=== PATIENT | male | born 1955 | race Caucasian/White ===

== ENCOUNTER 2016-07-28 10:36 | Emergency (ER) | payer OTHER ==
[~2016-07-28] VITALS: Ht 175.3 cm; Wt 81.6 kg
[2016-07-28] MEDS ORDERED: NORC5TAB PO (11:27)
[2016-07-28] MEDS ORDERED: KETOROLAC 30 MG/ML VIAL (J1885) IV ONE (13:30)
[2016-07-28] MEDS ORDERED: ONDANSETRON 4MG/2ML VIAL (J2405) IV ONE (13:30)
[2016-07-28] MEDS ORDERED: MORPHINE 4 MG/ML 1ML SYRINGE IV ONE (13:30)
[2016-07-28] MEDS ORDERED: GASTROGRAFIN SOLUTION 30ML (Q9963) PO ONE ×2 (13:30)
[2016-07-28 14:13] LABS: BASO % 0.3 % (0.0-1.0); EOS # 0.2 K/mm3 (0.0-0.50); EOS % 1.9 % (0.0-3.0); LARGE UNSTAINED CELL # 0.2 K/mm3 (0.0-0.4); LARGE UNSTAINED CELL % 1.2 % (0.0-4.0); LYMPH # 1.9 K/mm3 (1.5-4.5); LYMPH % 12.7 % (24.0-44.0); MEAN CORPUSCULAR HEMOGLOBIN 32.2 pg (27.0-33.0); MEAN CORPUSCULAR HGB CONC 35.4 g/dl (32.0-36.5); MEAN CORPUSCULAR VOLUME 90.7 fl (80.0-96.0); MONO # 0.9 K/mm3 (0.0-0.8); MONO % 6.5 % (0.0-5.0); NEUTROPHILS # 10.4 K/mm3 (1.8-7.7); NEUTROPHILS % 77.4 % (36.0-66.0); PLATELET COUNT, AUTOMATED 243 k/mm3 (150-450); RED CELL DISTRIBUTION WIDTH 12.7 % (11.5-14.5); WHITE BLOOD COUNT 13.5 K/mm3 (4.0-10.0)
[2016-07-28 14:20] LABS: ALBUMIN 4.1 GM/DL (3.2-5.2); ALBUMIN/GLOBULIN RATIO 1.03 (1.00-1.93); ALKALINE PHOSPHATASE 77 U/L (45-117); ALT/SGPT 53 U/L (12-78); AMYLASE 86 U/L (25-115); ANION GAP 7 MEQ/L (8-16); AST/SGOT 39 U/L (15-37); BILIRUBIN,DIRECT 0.2 MG/DL (0.0-0.2); BILIRUBIN,TOTAL 0.8 MG/DL (0.2-1.0); BLOOD UREA NITROGEN 9 MG/DL (7-18); CALCIUM LEVEL 9.3 MG/DL (8.8-10.2); CARBON DIOXIDE LEVEL 28 MEQ/L (21-32); CHLORIDE LEVEL 104 MEQ/L (98-107); CREATININE FOR GFR 1.11 MG/DL (0.70-1.30); GLOMERULAR FILTRATION RATE > 60.0 (>49); GLUCOSE, FASTING 122 MG/DL (80-110); POTASSIUM SERUM 3.8 MEQ/L (3.5-5.1); SODIUM LEVEL 139 MEQ/L (136-145); TOTAL PROTEIN 8.1 GM/DL (6.4-8.2)
[2016-07-28] MEDS ORDERED: ISOVUE-370 76% 100ML VIAL (Q9967) As Ordered ONE (14:39)
[2016-07-28] MEDS ORDERED: HYDROmorphone HCL 1 MG/ML SYRINGE (J1170) IV ONE (14:45)
[2016-07-28] MEDS ORDERED: FLAG500T PO (15:20)
[2016-07-28] MEDS ORDERED: CIPR500T89 PO (15:20)
--- NOTE | 2016-07-28 15:20 | REP ---
CT abdomen and pelvis with IV and oral contrast: History: Diffuse abdominal tenderness. Nausea. No comparison imaging. CT contrast dose: 100 ml of Isovue 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 The lung bases are clear. There is a calcified granuloma in the left lower lobe. There is mild diffuse fatty infiltration of the liver. No focal hepatic or splenic lesion is seen. The gallbladder is unremarkable. No pancreatic abnormality is observed. No adrenal lesion is seen. The kidneys enhance symmetrically and are morphologically intact. No retroperitoneal mass or adenopathy is seen. The patient appears to be status post right colectomy and an anastomosis. No evidence of obstruction. There is left colonic diverticulosis. There is a segment of moderate mural thickening and pericolonic streaking in the left pelvis compatible with acute diverticulitis. No abscess or free air is seen. No abdominal wall defect is observed. Normal appendix is seen in the right lower abdomen. Urinary bladder, prostate and seminal vesicles are unremarkable. No bony destructive lesion is seen. Impression: Findings most compatible with acute diverticulitis in the sigmoid colon without evidence of abscess or free air. Follow-up is advised. Status post partial right hemicolectomy. Vascular calcification noted. Diffuse fatty infiltration of the liver. Signed by Robbi Kelly MD 07/28/2016 07:18 P
[2016-07-28] MEDS ORDERED: OXYC1TAB23 PO (15:22)
[2016-07-28] MEDS ORDERED: ZOFR4TAB3 PO (15:22)
[2016-07-28 15:29] VITALS: BP 155/90
== END 2016-07-28 15:37 | disposition home or self-care (01) ==
LOC: M ED 12:51
DX: K57.32 Diverticulitis of large intestine without perforation or abscess without bleeding (principal); Z85.038 Personal history of other malignant neoplasm of large intestine; Z87.891 Personal history of nicotine dependence
CPT/HCPCS: 36415; 74177; 80048; 80076; 81001; 82150; 83690; 85025; 86140; 96374; 96375; 99283; J1170; J1885; J2405; Q9963; Q9967

== ENCOUNTER 2018-05-13 11:30 | Emergency (ER) | payer OTHER ==
[~2018-05-13] VITALS: Ht 175.3 cm; Wt 81.8 kg
[~2018-05-13 11:30] MED LIST: CIPR-249 PO; FLAG500T PO; NORC1TAB4 PO; OXYC1TAB23 PO; ZOFR4TAB14 PO
[2018-05-13 11:53] LABS: BASO # 0.1 10^3/uL (0.0-0.2); BASO % 0.7 % (0.0-1.0); EOS # 0.4 10^3/uL (0.0-0.50); EOS % 4.6 % (0.0-3.0); HEMATOCRIT 44.2 % (42.0-52.0); HEMOGLOBIN 14.9 g/dl (13.5-17.5); LYMPH % 24.6 % (24.0-44.0); MEAN CORPUSCULAR HEMOGLOBIN 30.7 pg (27.0-33.0); MEAN CORPUSCULAR HGB CONC 33.7 g/dl (32.0-36.5); MEAN CORPUSCULAR VOLUME 90.9 fl (80.0-96.0); MONO # 0.5 10^3/uL (0.0-0.8); MONO % 6.2 % (0.0-5.0); NEUTROPHILS # 5.3 10^3/uL (1.8-7.7); NEUTROPHILS % 63.7 % (36.0-66.0); PLATELET COUNT, AUTOMATED 305 10^3/uL (150-450); RED BLOOD COUNT 4.86 10^6/uL (4.30-6.10); WHITE BLOOD COUNT 8.3 10^3/uL (4.0-10.0)
[2018-05-13] MEDS: MORPHINE 4 MG/ML 1ML VIAL/SYRINGE (J2270) IV PRN ×2 (12:27→12:49)
[2018-05-13] MEDS ORDERED: ONDANSETRON 4MG/2ML VIAL (J2405) IV ONE (12:30)
[2018-05-13] MEDS ORDERED: NS 1,000 ML IV ONE (12:30)
[2018-05-13] MEDS ORDERED: GASTROGRAFIN SOLUTION 30ML (Q9963) As Ordered ONE (12:47)
[2018-05-13] MEDS: GASTROGRAFIN SOLUTION 30ML PO SCH ×2 (12:50→13:20)
[2018-05-13] MEDS ORDERED: MORPHINE 4 MG/ML 1ML VIAL/SYRINGE (J2270) IV PRN (13:30)
[2018-05-13] MEDS ORDERED: ISOVUE-370 76% 100ML VIAL (Q9967) As Ordered ONE (14:01)
[2018-05-13 14:10] LABS: AMYLASE 105 U/L (25-115); BILIRUBIN,TOTAL 0.5 MG/DL (0.2-1.0); BLOOD UREA NITROGEN 15 MG/DL (7-18); CALCIUM LEVEL 8.8 MG/DL (8.8-10.2); CARBON DIOXIDE LEVEL 25 MEQ/L (21-32); CHLORIDE LEVEL 109 MEQ/L (98-107); GLUCOSE, FASTING 105 MG/DL (70-100); LIPASE 138 U/L (73-393); POTASSIUM SERUM 4.4 MEQ/L (3.5-5.1); SODIUM LEVEL 140 MEQ/L (136-145); TOTAL PROTEIN 7.7 GM/DL (6.4-8.2)
[2018-05-13 14:24] LABS: CREATININE FOR GFR 1.09 MG/DL (0.70-1.30); GLOMERULAR FILTRATION RATE > 60.0 (>49)
[2018-05-13 14:25] LABS: ALT/SGPT 34 U/L (12-78)
[2018-05-13 14:41] LABS: BILIRUBIN,DIRECT 0.1 MG/DL (0.0-0.2)
--- NOTE | 2018-05-13 15:23 | REP ---
CT ABDOMEN AND PELVIS WITH IV AND ORAL CONTRAST: HISTORY: Left-sided abdomen pain. Rule out diverticulitis. COMPARISON CT STUDY: July 28, 2016 CT CONTRAST DOSE: 100 mL of intravenous Isovue 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 There is bibasilar linear fibrosis in the lung bases. No pleural effusion is seen. No focal hepatic or splenic lesion is observed. There is a tiny accessory splenule. No adrenal lesion is seen on either side. No pancreatic lesion is observed. The gallbladder is unremarkable. No retroperitoneal mass or adenopathy is seen. There is no evidence of hydronephrosis or other renal abnormality. There is diverticulosis of the sigmoid colon. There is no CT evidence of diverticulitis. Urinary bladder boone are diffusely somewhat thickened. There is an anastomosis in the ascending colon consistent with partial right colectomy, unchanged. No obstructive lesion is seen. Study is otherwise unremarkable. IMPRESSION: Left colonic diverticulosis without CT evidence of diverticulitis. Status post partial right colectomy. Diffuse the urinary bladder wall thickening. Otherwise negative CT abdomen and pelvis. Electronically Signed by Robbi Kelly MD 05/13/2018 06:19 P
[2018-05-13] MEDS ORDERED: ZOFR4TAB14 PO (15:34)
[2018-05-13] MEDS ORDERED: PERC5TAB12 PO (15:34)
[2018-05-13 16:03] VITALS: BP 190/98
--- NOTE | 2018-05-15 08:26 | ED PDOC ---
Post-Departure Follow-Up radiology report faxed to Elizabeth Macias MD May 15, 2018 08:26
== END 2018-05-13 16:06 | disposition home or self-care (01) ==
LOC: M ED 11:30
DX: R10.12 Left upper quadrant pain (principal); R10.32 Left lower quadrant pain; Z87.19 Personal history of other diseases of the digestive system; Z90.49 Acquired absence of other specified parts of digestive tract
CPT/HCPCS: 74177; 80048; 80076; 81001; 82150; 83690; 85025; 96374; 96375; 96376; 99284; J2270; J2405; Q9967

== ENCOUNTER → 2018-05-19 | Outpatient (CLI) | payer OTHER ==
[~2018-05-19] MED LIST changes: +PERC5TAB12 PO
--- NOTE | 2018-05-20 00:41 | REP ---
Clinical: Lower back pain. Technique: AP, lateral, bilateral oblique, and coned-down views of the lumbosacral spine. Findings: AP view demonstrates mild dextroconvex scoliosis of approximately 11 degrees. No acute fracture / compression injury or subluxation. No evidence for spondylolysis or spondylolisthesis. Mild multilevel degenerative changes include marginal spurring as well as hypertrophic facet changes and minimal disc space narrowing. Impression: Mild multilevel degenerative changes. Electronically Signed by Shaquille Guillaume MD 05/20/2018 12:33 A
== END ==
LOC: M RAD 09:27
PROVIDERS: ATTEND Physician Assistant Medical
DX: M51.37 Other intervertebral disc degeneration, lumbosacral region (principal); M54.5 Low back pain

== ENCOUNTER 2019-03-09 07:05 | Day surgery (SDC) | payer OTHER ==
[~2019-03-09] VITALS: Ht 170.2 cm; Wt 81.6 kg
[~2019-03-09 07:05] MED LIST changes: +ASPI81TA85 PO; +COQ1100C5 PO; +CYCL10TA PO; +L-LY500T14 PO; +LISI40TA PO; +MELO15TA28 PO; +MULTCAP PO; -NORC1TAB4 PO; +NORC1TAB7 PO; +NS 1,000 ML IV ONE; +ROSU40TA4 PO; +SM S160C PO; +VITATAB73 PO
--- NOTE | 2019-03-09 08:22 | ROOR ---
Patient Name: Saleem Mckeon Procedure Date: 03/09/2019 8:08 AM Date of : 1955 Age: 63 Room: [facility] Gender: Male Note Status: Finalized Procedure: Upper Endoscopy + Biopsies Indications: Iron deficiency anemia Providers: Clay Martinez MD Referring MD: ELDER LANDA Requesting Provider: Medicines: Monitored Anesthesia Care Complications: No immediate complications. Procedure: Pre-Anesthesia Assessment: - The heart rate, respiratory rate, oxygen saturations, blood pressure, adequacy of pulmonary ventilation, and response to care were monitored throughout the procedure. The Endoscope was introduced through the mouth, and advanced to the second part of duodenum. The upper GI endoscopy was accomplished without difficulty. The patient tolerated the procedure well. Findings: The Z-line was variable and was found 40 cm from the incisors. Multiple biopsies were obtained with cold forceps for evaluation to rule out Romero's Esophagus randomly at the gastroesophageal junction. A small hiatal hernia was present. Localized mild inflammation characterized by congestion (edema) and erosions was found in the gastric antrum. Biopsies were taken with a cold forceps for Helicobacter pylori testing. The exam of the duodenum was otherwise normal. Biopsies for histology were taken with a cold forceps in the first portion of the duodenum for evaluation of celiac disease. The exam was otherwise without abnormality. Impression: - Z-line variable, 40 cm from the incisors. - Small hiatal hernia. - Mucosal changes suspicious for gastritis. Biopsied. - The examination was otherwise normal. - Multiple biopsies were obtained at the gastroesophageal junction. - Biopsies were taken with a cold forceps for evaluation of celiac disease. - The examination was otherwise normal. Recommendation: - Patient has a contact number available for emergencies. The signs and symptoms of potential delayed complications were discussed with the patient. Return to normal activities tomorrow. Written discharge instructions were provided to the patient. - High fiber diet. - Discharge patient to home. - Follow an antireflux regimen. - Continue present medications. - Await pathology results. - Telephone GI clinic for pathology results in 1 week. - Return to referring physician. - The findings and recommendations were discussed with the patient's family. Clay Martinez MD Clay Martinez MD 03/09/2019 8:22:30 AM Electronically signed by Clay Martinez MD Number of Addenda: 0 Note Initiated On: 03/09/2019 8:08 AM Estimated Blood Loss: Estimated blood loss: none.
--- NOTE | 2019-03-09 08:36 | ROOR ---
Patient Name: Saleem Mckeon Procedure Date: 03/09/2019 8:09 AM Date of : 1955 Age: 63 Room: [facility] Gender: Male Note Status: Finalized Procedure: Total Colonoscopy to Cecum Indications: High risk colon cancer surveillance: Personal history of colonic polyps, Last colonoscopy: 2016, Incidental - Unexplained iron deficiency anemia Providers: Clay Martinez MD Referring MD: ELDER LANDA Requesting Provider: Medicines: Monitored Anesthesia Care Complications: No immediate complications. Procedure: Pre-Anesthesia Assessment: - The heart rate, respiratory rate, oxygen saturations, blood pressure, adequacy of pulmonary ventilation, and response to care were monitored throughout the procedure. The Colonoscope was introduced through the anus and advanced to the cecum, identified by appendiceal orifice and ileocecal valve. The colonoscopy was performed without difficulty. The patient tolerated the procedure well. The quality of the bowel preparation was excellent. Findings: The perianal and digital rectal examinations were normal. Non-bleeding internal hemorrhoids were found during retroflexion. The hemorrhoids were small and Grade I (internal hemorrhoids that do not prolapse). Multiple small and large-mouthed diverticula were found in the recto-sigmoid colon, sigmoid colon and descending colon. The exam was otherwise without abnormality on direct and retroflexion views. Impression: - Non-bleeding internal hemorrhoids. - Diverticulosis in the recto-sigmoid colon, in the sigmoid colon and in the descending colon. - The examination was otherwise normal on direct and retroflexion views. - No specimens collected. - The exam was otherwise normal to the cecum. Recommendation: - Patient has a contact number available for emergencies. The signs and symptoms of potential delayed complications were discussed with the patient. Return to normal activities tomorrow. Written discharge instructions were provided to the patient. - High fiber diet. - Discharge patient to home. - Continue present medications. - Return to referring physician. - Repeat colonoscopy in 5 years for surveillance. - Return to referring physician. - The findings and recommendations were discussed with the patient's family. Clay Martinez MD Clay Martinez MD 03/09/2019 8:36:25 AM Electronically signed by Clay Martinez MD Number of Addenda: 0 Note Initiated On: 03/09/2019 8:09 AM Estimated Blood Loss: Estimated blood loss: none.
[2019-03-09] MEDS ORDERED: LIDOCAINE 2% INJ 100 MG/5 ML SDV (FOR ANES.) As Ordered ONE (08:46)
[2019-03-09] MEDS ORDERED: fentaNYL 100 MCG/2 ML INJECTION (J3010) As Ordered ONE (08:46)
[2019-03-09] MEDS ORDERED: PROPOFOL 500 MG/50 ML VIAL As Ordered ONE (08:46)
[2019-03-09 09:00] VITALS: BP 130/90
== END 2019-03-09 09:20 | disposition home or self-care (01) ==
LOC: M OPP 07:05
PROVIDERS: ATTEND Internal Medicine Gastroenterology
DX: Z12.11 Encounter for screening for malignant neoplasm of colon (principal); Z86.010 Personal history of colon polyps; K64.0 First degree hemorrhoids; K57.30 Diverticulosis of large intestine without perforation or abscess without bleeding; K22.8 Other specified diseases of esophagus; K44.9 Diaphragmatic hernia without obstruction or gangrene; K31.89 Other diseases of stomach and duodenum; D50.9 Iron deficiency anemia, unspecified; Z79.82 Long term (current) use of aspirin; Z79.899 Other long term (current) drug therapy; F17.220 Nicotine dependence, chewing tobacco, uncomplicated
CPT/HCPCS: 43239; 45378; 88305; J3010

== ENCOUNTER → 2019-06-21 | Outpatient (CLI) | payer OTHER ==
[~2019-06-21] MED LIST changes: -NS 1,000 ML IV ONE
--- NOTE | 2019-06-23 02:04 | ECWPNPC ---
PATIENT NAME: DELILAH CONWAY : 1955 GENDER: MALE VISIT DATE: 06/21/2019 DISCHARGE DATE: 06/21/19 1502 VISIT LOCKED DATE TIME: PHYSICIAN: JANN PEÑA RESOURCE: JANN PEÑA REASON FOR APPOINTMENT 1. BILATERAL FOOT PX HISTORY OF PRESENT ILLNESS NEW PATIENT CONSULT: WHEN DID YOUR PAIN FIRST START? . BRIEFLY DESCRIBE HOW YOUR PAIN STARTED? . HOW DOES YOUR PAIN CHANGE WITH TIME? . DOES YOUR PAIN AWAKEN YOU FROM SLEEP? . HOW MANY HOURS OF SLEEP DO YOU NORMALLY GET? . ANY DIAGNOSTIC TESTING? . FACILITY WHERE TESTS WERE DONE? ____. PAIN TREATMENT TREATMENT YES CANCER HAVE YOU EVER HAD ANY TYPE OF CANCER?NO NO. 64 YEAR OLD MALE IN FOR INITIAL PAIN CONSULT. HE RATES HIS PAIN AT A 10/10 CURRENTLY AND DESCRIBES IT ACHING, SHARP, AND BURNING. 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 HE HAS TRIED OXYCODONE AND GABAPENTIN IN THE PAST TO HELP ALLEVIATE HIS PAIN SYMPTOMS AND HE ADMITS THAT IT WAS HELPFUL. PAIN SCREENING: PATIENT HAS A COMPLAINT OF ACUTE OR CHRONIC PAIN :YES FALL RISK SCREENING: SCREENING : NO FALLS IN THE PAST YEAR. LOCKETT INVENTORY: QUESTIONNAIRE ASSESSEDTBD SCORE VALUE CALCULATED TBD CURRENT MEDICATIONS TAKING CYCLOBENZAPRINE HCL 10 MG TABLET ORALLY TID TAKING MELOXICAM 15 MG TABLET ORALLY DAILY TAKING LISINOPRIL 20 MG TABLET ORALLY DAILY TAKING ROSUVASTATIN CALCIUM 20 MG TABLET ORALLY DAILY TAKING ASPIR-81 NOT-TAKING FLEXERIL MEDICATION LIST REVIEWED AND RECONCILED WITH THE PATIENT PAST MEDICAL HISTORY HYPERTENSION COLON CANCER HIGH CHOLESTEROL ARTHRITIS DIVERTICULITIS SORTIC ANEURYSEM ANEMIA ALLERGIES N.K.D.A. SURGICAL HISTORY COLON SURGERY 2016 HERNIA SURGERY WHEN TEENAGER EYE SURGERY A CHILD FAMILY HISTORY FATHER: MOTHER: , DIAGNOSED WITH HYPERTENSION SIBLINGS: MOTHER OF LUNG CANCERBROTHER OF BONE/BRAIN CANCERSISTER MURDRED. SOCIAL HISTORY GENERAL: TOBACCO USE ARE YOU A:NONSMOKER ADDITIONAL FINDINGS: TOBACCO USERCHEWS FINE CUT TOBACCO SMOKING CESSATION INFORMATION GIVEN06/21/2019 OTHERS AT HOME: GRANDCHILD AND SON AND SIGNIFICANT OTHER 4 DOGS AND 3 CATS. HOUSING: RENTS APARTMENT. EDUCATION LEVEL OF EDUCATION:NOT FINISHED COLLEGE DIET: REGULAR. LANGUAGE LANGUAGES SPOKEN:BULGARIAN DOMESTIC VIOLENCE DO YOU FEEL SAFE IN YOUR ENVIRONMENT?YES RECREATIONAL DRUG USE DRUG USE?NO PT DECLINES ANY PAST OR PRESENT HISTORY EXERCISE: WALKS. PATIENT: ____. PAIN CLINIC PFS, CLERGY, PUBLIC HEALTH REFERRALS WAS THE PROVIDER NOTIFIED OF ANY PERTINENT INFO?NO PUBLIC HEALTH REFERRAL NEEDED?NO CLERGY REFERRAL NEEDED?NO PFS REFERRAL NEEDED?NO CAFFEINE CAFFEINE USE?YES ONE CUP IN THE MORNING, 1 CUP DAILY ADVANCE DIRECTIVE ADVANCE DIRECTIVE DISCUSSED WITH PATIENT:YES GIVEN PRINTED MATERIAL FOR HCP JEWISH JEWISH ORIENTAL ORTHODOX IS HOW PT WAS RAISED , BUT STATES NO PREFERENCE MARITAL STATUS: SINGLE. ALCOHOL SCREENING DID YOU HAVE A DRINK CONTAINING ALCOHOL IN THE PAST YEAR?NO POINTS0 INTERPRETATIONNEGATIVE OCCUPATION: RETIRED. HOSPITALIZATION/MAJOR DIAGNOSTIC PROCEDURE SURGERIES AND DIVERTICULITIS REVIEW OF SYSTEMS REVIEWED BY: PROVIDER: RENETTA VOGEL-Isadora . CONSTITUTIONAL: ANY CHANGE IN YOUR MEDICAL CONDITION? NO . CHILLS NO . FEVER NO . INFECTION: DO YOU HAVE NEW INFECTIONS? NO . DO YOU HAVE HISTORY OF MRSA? NO . MUSCULOSKELETAL: ANY NEW PATTERNS OF PAIN OR NUMBNESS? PAIN IN BOTH FEET . SYTEMIC LUPUS NO . GASTROENTEROLOGY: ANY NEW CHANGE IN BOWEL CONTROL? NO . BARRETTS ESOPHAGUS NO . CIRRHOSIS NO . HEPATITIS NO . LIVER FAILURE NO . ACID REFLUX NO . UNEXPLAINED WEIGHT LOSS NO . GENITOURINARY: ANY NEW CHANGE IN BLADDER CONTROL? NO . IS THERE A CHANCE YOU COULD BE ? NO . HEMATOLOGY/LYMPH: DO YOU TAKE ANY BLOOD THINNERS? (FOR EXAMPLE- COUMADIN, PLAVIX, AGGRENOX, PLATEL, PRADAXA, OR XARELTO) NO . WHEN WAS YOUR LAST DOSE? DATE: TIME: . LOW PLATELET COUNT NO . SICKLE CELL DISEASE NO . VON WILLIEBRANDS NO . FACTOR V LEIDEN NO . THALLASEMIA NO . ANEMIA NO . EASY BRUISING NO . NEUROLOGY: HAVE YOU FALLEN IN THE PAST 12 MONTHS? NO . ANY NEW EXTREMITY NUMBNESS OR WEAKNESS? NO . HEAD INJURY NO . DEMENTIA NO . CEREBRAL PALSY NO . MULTIPLE SCLEROSIS NO . DIZZINESS NO . HEADACHE NO . STROKES NO . VERTIGO NO . CARDIOLOGY: DO YOU HAVE A PACEMAKER OR DEFIBRILLATOR? NO . ANGINA NO . HEART ATTACK NO . HEART SURGERY NO . CONGESTIVE HEART FAILURE/FLUID OVERLOAD NO . CHEST PAIN NO . HIGH BLOOD PRESSURE NO . IRREGULAR HEART BEAT NO . RESPIRATORY: HAVE YOU BEEN SICK IN THE PAST WEEK? NO . FEVER NO . FLU LIKE SYMPTOMS? NO . CPAP NO . BYPAP NO . ASTHMA NO . EMPHYSEMA NO . CHRONIC LUNG DISEASES NO . SHORTNESS OF BREATH ON EXERTION NO . DO YOU USE ANY TYPE OF TOBACCO (SMOKE, SMOKELESS, CHEW)? NO . COUGH NO . SNORING NO . INTEGUMENTARY: DO YOU HAVE ANY RASHES OR OPEN SORES? NO . ALLERGIC/IMMUNO: ARE YOU ALLERGIC TO IV DYE? NO . ANY NEW ALLERGIES? NO . PSYCHIATRIC: DO YOU HAVE THOUGHTS OF HURTING YOURSELF OR SOMEONE ELSE? NO . ARE YOU ABUSED, NEGLECTED, OR IN AN UNSAFE ENVIRONMENT? NO . ENDOCRINOLOGY: ARE YOU DIABETIC? NO . THYROID DISORDER NO . OTHER: DO YOU NEED ANY PRESCRIPTIONS? NO . IF YES, PLEASE LIST: ____ . ANY NEW PROBLEMS WITH YOUR MEDICATIONS? NO . WHEN DID YOU LAST EAT? ____ . WHEN DID YOU LAST DRINK? ____ . WHAT DID YOU LAST DRINK? ____ . NAME OF PERSON DRIVING YOU HOME? ____ . DO YOU HAVE ANY OTHER QUESTIONS OR CONCERNS NO . VITAL SIGNS WT 187.6 LBS, HT 57 IN, BMI 40.59 INDEX, BP 134/67 MM HG, HR 78 /MIN, RR 18 /MIN, TEMP 97.2 F, OXYGEN SAT % 99%, NA INITIALS AW 1348, REVIEWED BY: KG. EXAMINATION GENERAL EXAMINATION: GENERALNO ACUTE DISTRESS, WELL NOURISHED AND HYDRATED. PSYCHAPPROPRIATE MOOD AND AFFECT . LUNGS:CLEAR TO AUSCULTATION BILATERALLY, NO WHEEZES, RHONCHI, RALES. HEART:NO MURMURS, REGULAR RATE AND RHYTHM. MUSCULOSKELETAL:POSITIVE PEDAL PULSES BILATERALLY , PATIENT ENDORSES TENDERNESS PLANTAR ASPECT BILATERALLY, SURROUNDING SKIN SHOWS NO ERYTHEMA, ECCHYMOSIS, INCREASED WARMTH, AND/OR SKIN ERUPTIONS NOTED. . ASSESSMENTS PAIN IN RIGHT FOOT - M79.671 (PRIMARY) PAIN IN LEFT FOOT - M79.672 TREATMENT PAIN IN RIGHT FOOT START OXYCODONE-ACETAMINOPHEN TABLET, 5-325 MG, 1 TABLET NEEDED, ORALLY, BID, 30 DAYS, 60 TABLET START LYRICA CAPSULE, 100 MG, 1 CAPSULE, ORALLY, ONCE A DAY X 1 WEEK THEN EVERY OTHER DAY, 14 DAYS, 10 START GABAPENTIN CAPSULE, 100 MG, 1 CAPSULE, ORALLY, THREE TIMES DAILY X 3 DAYS, 3 DAYS, 9 START GABAPENTIN CAPSULE, 300 MG, 1 CAPSULE, ORALLY, THREE TIMES DAILY START DAY 4, 30 DAY(S), 90 CLINICAL NOTES: 64-YEAR-OLD MALE IN FOR INITIAL PAIN CONSULT. GIVEN PRESENTING SYMPTOMS AND RESULTS OF PHYSICAL EXAMINATION RECOMMENDED OXYCODONE 5 MG TWICE A DAY FURTHER RECOMMEND TITRATING OFF LYRICA AND STARTING GABAPENTIN 100 MG 3 TIMES A DAY X3 DAYS THEN INCREASING TO 300 MG 3 TIMES A DAY THEREAFTER., ISTOP REGISTRY REVIEWED AND DEMONSTRATES COMPLLIANCE. (REF # [id number] ) BRINGS IN MEDICATIONS WHICH IS APPROPRIATE FOR WHAT WAS DISPENSED. RECENT URINE TOXICOLOGY REVIEWED. NO UNAUTHORIZED MEDICATIONS. NO ILLICIT SUBSTANCES AND PRESCRIBED MEDICATIONS WERE PRESENT. DISPOSITION & COMMUNICATION FOLLOW UP 4 WEEKS (REASON: FOOT PAIN ) ELECTRONICALLY SIGNED BY JASPREET RIVERA ON 06/22/2019 AT 03:16 PM EST DISCLAIMER : THIS IS A VISIT SUMMARY EXTRACTED FROM THE [employer] CHART. IT IS NOT A COPY OF THE [employer] PROGRESS NOTE. MIGUE
== END ==
LOC: M PAIN 13:30
PROVIDERS: ATTEND Family Medicine
DX: M79.671 Pain in right foot (principal); M79.672 Pain in left foot; I10 Essential (primary) hypertension; F17.220 Nicotine dependence, chewing tobacco, uncomplicated; E66.01 Morbid (severe) obesity due to excess calories; Z68.41 Body mass index [BMI] 40.0-44.9, adult; Z79.82 Long term (current) use of aspirin; Z79.899 Other long term (current) drug therapy

== ENCOUNTER 2019-06-27 15:43 | Inpatient (IN) | payer OTHER ==
[~2019-06-27] VITALS: Ht 170.2 cm; Wt 88.3 kg
[2019-06-27 16:48] LABS: HEMATOCRIT 40.8 % (42.0-52.0); HEMOGLOBIN 13.7 g/dl (13.5-17.5); MEAN CORPUSCULAR HEMOGLOBIN 30.2 pg (27.0-33.0); MEAN CORPUSCULAR HGB CONC 33.6 g/dl (32.0-36.5); MEAN CORPUSCULAR VOLUME 89.9 fl (80.0-96.0); PLATELET COUNT, AUTOMATED 235 10^3/uL (150-450); RED BLOOD COUNT 4.54 10^6/uL (4.30-6.10); WHITE BLOOD COUNT 11.3 10^3/uL (4.0-10.0)
[2019-06-27 17:14] LABS: CALCIUM LEVEL 9.7 MG/DL (8.8-10.2); CREATININE FOR GFR 1.35 MG/DL (0.70-1.30); GLOMERULAR FILTRATION RATE 56.6 (>49); POTASSIUM SERUM 3.9 MEQ/L (3.5-5.1)
[2019-06-27] MEDS ORDERED: ONDANSETRON 4MG/2ML VIAL (J2405) IV ONE (17:45)
--- NOTE | 2019-06-27 17:47 | REPVR ---
PROCEDURE INFORMATION: Exam: CT Head Without Contrast Exam date and time: 06/27/2019 5:21 PM Age: 64 years old Clinical indication: Condition or disease; Convulsions or seizures; Additional info: New seizure TECHNIQUE: Imaging protocol: Computed tomography of the head without contrast. Radiation optimization: All CT scans at this facility use at least one of these dose optimization techniques: automated exposure control; mA and/or kV adjustment per patient size (includes targeted exams where dose is matched to clinical indication); or iterative reconstruction. COMPARISON: CT Head without contrast 06/06/2013 8:50 AM FINDINGS: Brain: No hemorrhage. Unremarkable white matter for the patient's age. No mass effect. No evolving territorial infarct. Mild cerebral convexity as well as cerebellar vermian volume loss. Ventricles: No ventriculomegaly. Bones/joints: Unremarkable. No acute fracture. Sinuses: Visualized sinuses are unremarkable. No fluid could levels. Mastoid air cells: Visualized mastoid air cells are well aerated. Soft tissues: Unremarkable. IMPRESSION: No acute intracranial abnormality seen. Electronically signed by: Meredith Solares On 06/27/2019 17:47:42 PM
[2019-06-27] MEDS: MORPHINE 2 MG/ML 1ML VIAL (J2270) IV PRN (17:49)
--- NOTE | 2019-06-27 17:53 | REPVR ---
PROCEDURE INFORMATION: Exam: CT Cervical Spine Without Contrast Exam date and time: 06/27/2019 5:21 PM Age: 64 years old Clinical indication: Injury or trauma; Injury history: Seizure; Initial encounter; Blunt trauma TECHNIQUE: Imaging protocol: Computed tomography images of the cervical spine without contrast. Radiation optimization: All CT scans at this facility use at least one of these dose optimization techniques: automated exposure control; mA and/or kV adjustment per patient size (includes targeted exams where dose is matched to clinical indication); or iterative reconstruction. COMPARISON: No relevant prior studies available. FINDINGS: Vertebrae: Anatomic alignment. No acute fracture seen. Discs/Spinal canal/Neural foramina: Moderate degenerative changes at C1-C2. Moderate multilevel cervical facet arthropathy. Moderate diffuse disc height loss and spondylosis with uncovertebral arthropathy and vacuum change of the disc spaces at C5-C6 and C6-C7. Other bones/joints: Prior surgical fixation of the right mandible. Soft tissues: Unremarkable. Lungs: Lung apices are normal. Vasculature: Mild calcified plaque at the carotid bifurcations. IMPRESSION: 1. Images are motion degraded, in particular from the C1 through C4 levels, most notably at the C1 and C2 levels. 2. No cervical spine fracture seen. Electronically signed by: Merdeith Solares On 06/27/2019 17:53:02 PM
[2019-06-27 17:58] LABS: CK-MB VALUE MASS 1.9 NG/ML (<3.6); MAGNESIUM LEVEL 2.2 MG/DL (1.8-2.4); MB/CK RELATIVE INDEX 0.32 (< OR =4)
[2019-06-27] MEDS ORDERED: levETIRAcetam INJection 1,000 MG in D5W 100 ML IV ONE (18:00)
[2019-06-27] MEDS ORDERED: MORPHINE 4 MG/ML 1ML VIAL/SYRINGE (J2270) IV ONE ×2 (18:00→19:15)
--- NOTE | 2019-06-27 19:19 | REPVR ---
PROCEDURE INFORMATION: Exam: CT Thoracic Spine Without Contrast Exam date and time: 06/27/2019 6:42 PM Age: 64 years old Clinical indication: Pain in thoracic spine; Additional info: Fall TECHNIQUE: Imaging protocol: Computed tomography images of the thoracic spine without contrast. Radiation optimization: All CT scans at this facility use at least one of these dose optimization techniques: automated exposure control; mA and/or kV adjustment per patient size (includes targeted exams where dose is matched to clinical indication); or iterative reconstruction. COMPARISON: No relevant prior studies available. FINDINGS: Vertebrae: Mild exaggeration of the thoracic kyphosis. Mild levoconvex scoliosis. No acute fracture seen. Mild multilevel thoracic degenerative disc disease with small endplate Schmorl's nodes. No severe stenoses identified. Discs/Spinal canal/Neural foramina: See Vertebrae Finding. Soft tissues: Unremarkable. Vasculature: The aorta demonstrates atherosclerosis. Lungs: The left lung demonstrates dependent atelectasis. Likely dependent right lower lobe atelectasis, component of consolidation is difficult to exclude, for example image 46 of series 202. Stomach and bowel: There is suture along the right colon in keeping with prior partial colectomy or potentially gastroenteric anastomosis. IMPRESSION: 1. No thoracic spine fracture seen. 2. Right lower lobe atelectasis versus consolidation. Electronically signed by: Meredith Solares On 06/27/2019 19:19:35 PM
--- NOTE | 2019-06-27 20:03 | ECGEPIP ---
[facility] - ED Test Date: 2019-06-27 Pat Name: DELILAH CONWAY Department: Room: - Gender: Male Activities Attendant: lubakasi : 1955 Requested By: Darrion Yi Order Number: [id number] Reading MD: Darrion Yi Measurements Intervals [place] Rate: 104 P: 71 FL: 196 QRS: -71 QRSD: 81 T: 66 QT: 323 QTc: 426 Interpretive Statements SINUS TACHYCARDIA PATTERN CONSISTENT WITH PULMONARY DISEASE LEFT ANTERIOR FASCICULAR BLOCK Left axis deviation NONSPECIFIC ST T WAVE CHANGES POOR R WAVE PROGRESSION Electronically Signed on 06-27-2019 20:03:24 EST by Darrion Yi
[2019-06-27] MEDS ORDERED: NS IV ONE (21:45)
[2019-06-27] MEDS ORDERED: KETAMINE HCL IV ONE (21:45)
[2019-06-27] MEDS ORDERED: MAALOX 30 ML SUSP *UDC PO PRN (22:15)
[2019-06-27] MEDS ORDERED: LORazepam 2 MG/ML VIAL (J2060) IV PRN (22:15)
[2019-06-27] MEDS ORDERED: ACETAMINOPHEN TAB 650MG DOSE (2X325MG) PO PRN (22:15)
[2019-06-27] MEDS ORDERED: MOM 30ML SUSPENSION UDC PO PRN (22:15)
--- NOTE | 2019-06-27 22:19 | HPEPDOC ---
[facility] Medical History & Physical Date of Admission Jun 27, 2019 Date of Service: Jun 27, 2019 Other Provider Essence Perry Attending Physician: ALFRED MISHRA MD History and Physical TIME OF SERVICE: 9:51 PM CHIEF COMPLAINT: Seizure HISTORY OF PRESENT ILLNESS: This is a 64-year-old male who presents for evaluation after having a seizure that was witnessed by his . Prior to the seizure. The patient felt funny and thought that he did fall onto his knees and got up, but his reported that this did not happen, instead, the patient fell down completely flat onto his f jeny had a seizure- and bit his tongue. He is never had seizures before. After the event the patient was confused. According to his he has been sleeping more than usual, has had a runny nose, and a sore throat; he had not eaten all day prior to the seizure and had been driving around town running errands. According to his when EMS checked his serum glucose it was 81. REVIEW OF SYSTEMS: 12 point review of systems negative except as listed in HPI PAST MEDICAL/ SURGICAL HISTORY: He denies having a prior history of seizures. Chronic HTN Chronic neck pain, Dyslipidemia. AAA Status post partial colectomy for resection of a precancerous colon lesion SOCIAL HISTORY: He chews tobacco. He doesn't drink alcohol. He lives with his FAMILY HISTORY: Pepcid cancer. He denies a family history of seizure disorder ALLERGIES: Please see below. HOME MEDICATIONS: Please see below. PHYSICAL EXAMINATION: VITAL SIGNS: Please see below. GEN: well-nourished / well developed/ NAD INTEGUMENT: not flushed/ not jaundice / slightly diaphoretic HEENT: mucus membranes dry CVS: RRR/NMRG/ radial pedis pulses intact / no lower extremity edema LUNGS: able to speak full sentences without stopping to take a breath / lungs are clear to auscultation bilaterally on room air ABDOMEN: Contour (flat) MSK/EXTREMITIES: range of motion intact in all 4 extremities / he has limited lateral range of motion in his neck because of pain NEURO: CN 2-12 are grossly intact except for mild horizontal nystagmus, more prominent at the right / speech is not dysarthric / strength is 5/5 PSYCH: alert and oriented to person place and time/ able to understand and follow all commands LABORATORY DATA: See below. IMAGING: CT head " IMPRESSION: No acute intracranial abnormality seen. " CT neck " IMPRESSION: 1. Images are motion degraded, in particular from the C1 through C4 levels, most notably at the C1 and C2 levels. 2. No cervical spine fracture seen. " CT thoracic spine " IMPRESSION: 1. No thoracic spine fracture seen. 2. Right lower lobe atelectasis versus consolidation. " MICROBIOLOGY: Please see below. ASSESSMENT: Mr. Mckeon is a 64-year-old male with a history of HTN, chronic neck pain, dyslipidemia & AAA who is admitted for evaluation of new onset seizure. PLAN: 1. New onset seizure The cause is unclear at this time His head CT, calcium and serum glucose are unremarkable. The mildly elevated CPKs likely due to the seizure He received Keppra in the ER Plan: Admit to PCU/fall precautions/ seizure precautions/ frequent neuro checks / neuro consult / f/u prolactin, trop, Urine drug screen (he received morphine in the ER), trend CK / f/u EEG / MRI brain w contrast to r/o mass / Keppra 500mg BID / I instructed the patient not to drive until he receives clearance from neurology 2. Pneumonia CAP vs Aspiration Pneumonitis due to aspiration during seizure CT report showed right sided consolidation He had a runny nose and sore throat but no fever or other symptoms consistent with PNA He was transiently hypoxic as low as 88% and had a respiratory rate as high as 22 in the ER Plan: Unasyn for probable aspiration pneumonitis/pneumonia / will not order sputum & blood cx ect bc he doesn't have an elevated BUN, tachypnea or low BP/ IVF / f/u strep throat cx / he will need influenza vaccine prior to discharge if he hasn't received it 3. SIRS. Likely reactive due to seizure. He does not look septic or toxic. Plan: Treat seizure/monitor vitals/treat pneumonia / IVF for tachycardia 4. Chronic HTN - Plan: Lisinopril 5. Chronic neck pain - Plan: Meloxicam and cyclobenzaprine DVT PROPHYLAXIS: Lovenox DISPOSITION: Home after more than two midnight's stay Vital Signs Vital Signs Date Time Temp Pulse Resp B/P (MAP) Pulse Ox O2 Delivery O2 Flow Rate FiO2 06/27/19 21:51 94 94 06/27/19 21:50 121/80 (94) 06/27/19 19:19 22 06/27/19 18:30 Room Air 06/27/19 15:46 97.8 Laboratory Data Labs 24H Laboratory Tests 2 06/27/19 16:31: Nucleated Red Blood Cells % (auto) 0.0, Anion Gap 11, Glomerular Filtration Rate 56.6, Calcium Level 9.7, Magnesium Level 2.2, Total Creatine Kinase 599H, Creatine Kinase MB 1.9, Creatine Kinase MB Relative Index 0.32 CBC/BMP Laboratory Tests 06/27/19 16:31 Home Medications Scheduled Ascorbic Acid (Vitamin C) 500 Mg Tablet, 500 MG PO DAILY Aspirin (Aspirin EC) 81 Mg Tablet.dr, 81 MG PO DAILY Lisinopril (Lisinopril) 40 Mg Tablet, 20 MG PO DAILY Meloxicam (Meloxicam) 15 Mg Tablet, 15 MG PO DAILY Multivitamins (Thera M Plus Tablet) 1 Each Tablet, 1 TAB PO DAILY [place]-3/Dha/Epa/Fish Oil (Fish Oil 1,000 mg Softgel) 1 Each Capsule, 1 CAP PO DAILY Pregabalin (Lyrica) 200 Mg Capsule, 200 MG PO DAILY Rosuvastatin Calcium (Rosuvastatin Calcium) 20 Mg Tablet, 20 MG PO DAILY Vitamin B Complex (Vitamin B Complex) 1 Each Tablet, 1 TAB PO DAILY Vitamin C/Biotin (Hair, Skin and Nails Gummies) 1 Each Tab.chew, 1 CHEW PO DAILY Scheduled PRN Cyclobenzaprine HCl (Cyclobenzaprine HCl) 10 Mg Tablet, 10 MG PO TID PRN for MUSCLE SPASMS Diclofenac Sodium (Diclofenac Sodium) 1% 100GM Gel..gram., 2 GM TOP BID PRN for PAIN APPLIES TO FEET AND KNEES NEEDED Melatonin (Melatonin) 3 Mg Tablet, 3 MG PO QHS PRN for SLEEP Allergies Coded Allergies: No Known Allergies (Verified , 03/01/19) A-FIB/CHADSVASC A-FIB History Current/History of A-Fib/PAF?: No Current PO Anticoag Therapy: No ALFRED MISHRA MD Jun 27, 2019 22:19
[2019-06-27] MEDS ORDERED: KETOROLAC 30 MG/ML VIAL (J1885) IV ONE (22:45)
[2019-06-27] MEDS ORDERED: DICL1GEL3 TOP (22:59)
[2019-06-27] MEDS ORDERED: C 50TAB PO (22:59)
[2019-06-27] MEDS ORDERED: NICO4LOZ MT (22:59)
[2019-06-27] MEDS ORDERED: OMEG10002 PO (22:59)
[2019-06-27] MEDS ORDERED: ASPI-161 PO (22:59)
[2019-06-27] MEDS ORDERED: ROSU20TA5 PO (22:59)
[2019-06-27] MEDS ORDERED: VITMTA PO (22:59)
[2019-06-27] MEDS ORDERED: LYRI200C PO (22:59)
[2019-06-27] MEDS ORDERED: MELA3TAB41 PO (23:39)
[2019-06-27] MEDS ORDERED: VITA1TAB61 PO (23:39)
[2019-06-28 00:13] VITALS: BP 140/98
[2019-06-28] MEDS ORDERED: CYCLOBENZAPRINE 10 MG TAB PO PRN (00:45)
[2019-06-28] MEDS: levETIRAcetam **XR** 500 MG TABLET PO SCH ×3 (00:55→20:01)
[2019-06-28] MEDS: LIDOCAINE 5% (LIDODERM) PATCH TD SCH ×2 (00:55→20:01)
[2019-06-28] MEDS: MORPHINE 2 MG/ML 1ML VIAL (J2270) IV PRN ×7 (00:56→21:22)
[2019-06-28] MEDS: RAMELTEON 8 MG TAB (ROZEREM) PO SCH ×2 (01:14→20:01)
[2019-06-28] MEDS ORDERED: SLF 3 ML SYR IV PRN (01:15)
[2019-06-28] MEDS ORDERED: NS 1,000 ML IV SCH ×4 (01:45→22:00)
[2019-06-28] MEDS: KETOROLAC 30 MG/ML VIAL (J1885) IV PRN ×3 (02:14→15:52)
[2019-06-28 02:29] LABS: INR 1.11
[2019-06-28 02:30] LABS: PARTIAL THROMBOPLASTIN TIME 32.1 SECONDS (25.0-38.4)
[2019-06-28] MEDS: AMPICILLIN SOD/SULBACTAM SOD 1.5 GM in D5W MINI-BAG PLUS 50 ML IV SCH ×4 (02:50→20:00)
[2019-06-28 04:00] VITALS: BP 129/79
[2019-06-28 05:57] LABS: HEMATOCRIT 40.7 % (42.0-52.0); HEMOGLOBIN 13.4 g/dl (13.5-17.5); MEAN CORPUSCULAR HEMOGLOBIN 30.5 pg (27.0-33.0); MEAN CORPUSCULAR HGB CONC 32.9 g/dl (32.0-36.5); MEAN CORPUSCULAR VOLUME 92.7 fl (80.0-96.0); PLATELET COUNT, AUTOMATED 236 10^3/uL (150-450); RED BLOOD COUNT 4.39 10^6/uL (4.30-6.10); WHITE BLOOD COUNT 12.2 10^3/uL (4.0-10.0)
[2019-06-28] MEDS ORDERED: SLF 3 ML SYR IV SCH (06:00)
[2019-06-28 06:17] LABS: CALCIUM LEVEL 8.4 MG/DL (8.8-10.2); CREATININE FOR GFR 1.51 MG/DL (0.70-1.30); GLOMERULAR FILTRATION RATE 49.8 (>49); MAGNESIUM LEVEL 2.2 MG/DL (1.8-2.4); POTASSIUM SERUM 3.4 MEQ/L (3.5-5.1)
[2019-06-28] MEDS ORDERED: PERCOCET 5MG/325MG TAB PO ONE (06:30)
[2019-06-28 08:00] VITALS: BP 136/88
[2019-06-28] MEDS: MELOXICAM (MOBIC) 7.5 MG TAB PO SCH (08:40)
[2019-06-28] MEDS: DOCUSATE SODIUM 100 MG CAP PO SCH ×2 (08:41→20:00)
[2019-06-28] MEDS: lisinopriL 20 MG TAB PO SCH (08:41)
[2019-06-28] MEDS: OMEGA-3 1000MG CAPSULE PO SCH (08:41)
[2019-06-28] MEDS: ROSUVASTATIN 10 MG TAB (CRESTOR) PO SCH (08:41)
[2019-06-28] MEDS: ASPIRIN 81 MG ENTERIC TAB PO SCH (08:41)
[2019-06-28] MEDS: MULTIVITAMINS/MINERALS THERAP 1 TAB PO SCH (08:41)
[2019-06-28] MEDS: PREGABALIN 100 MG CAP (LYRICA) PO SCH (08:41)
[2019-06-28] MEDS: **NOTE PATIENT COMMENT** MISC XX SCH (08:42)
[2019-06-28] MEDS: ENOXAPARIN 40 MG/0.4 ML SYRINGE (J1650) SC SCH (08:42)
[2019-06-28] MEDS ORDERED: PROHANCE 279.3MG/ML 5ML VIAL (A9576) As Ordered ONE (09:20)
[2019-06-28] MEDS ORDERED: POTASSIUM CHLORIDE 10 MEQ SR TABLET PO ONE (09:45)
--- NOTE | 2019-06-28 10:46 | REPVR ---
PROCEDURE INFORMATION: Exam: MR Head Without and With Contrast Exam date and time: 06/28/2019 6:00 AM Age: 64 years old Clinical indication: Condition or disease; Convulsions or seizures; Unspecified; Patient HX: HX colon mass, seizure; Additional info: 64m w HTN, oa TECHNIQUE: Imaging protocol: MR of the head without and with intravenous contrast. Contrast material: PRONCE; Contrast volume: 8 ml; Contrast route: IV; COMPARISON: CT Head without contrast 06/27/2019 5:16 PM FINDINGS: Brain: No foci of true diffusion restriction identified to represent acute infarction. A punctate focus of high signal in the right parietal subcortical white matter demonstrates increased signal intensity on the ADC map and correlative high signal on the T2 weighted sequence, consistent with an area of T2 shine through (could represent a punctate subacute infarct versus focus of chronic ischemia, there is no correlative enhancement). No enhancing lesions identified on the postcontrast imaging. There is mild cerebral and cerebellar volume loss. No parenchymal hemorrhage. Few patchy foci of increased signal intensity in the deep and subcortical white matter most likely representing trace chronic small vessel ischemic change. Ventricles: No ventriculomegaly. Bones/joints: Unremarkable. Soft tissues: Unremarkable. Sinuses: Normal as visualized. No acute sinusitis. Mastoid air cells: Normal as visualized. No mastoid effusion. Orbits: Unremarkable. IMPRESSION: No acute intracranial abnormality. Electronically signed by: Meredith Solares On 06/28/2019 10:46:36 AM
[2019-06-28 13:21] VITALS: BP 140/92
--- NOTE | 2019-06-28 15:26 | IPNPDOC ---
Text Note Date of Service The patient was seen on 06/28/19. NOTE SUBJECTIVE: -Has significant 10/10 neck pain that he says morphine helped but definitely not the tylenol or percocet -Absolutely has no history of seizure activity that he knows of. -No symptoms since yesterday VITAL SIGNS: Please see below. GEN: well-nourished / well developed/ NAD INTEGUMENT: not flushed/ not jaundice / slightly diaphoretic HEENT: NCAT, PERRLA, EOMI, MMM, clear posterior oropharynx NECK: FROM with some pain with movement, no shooting pain CVS: RRR/NMRG/ radial pedis pulses intact / no lower extremity edema LUNGS: Clear to auscultation bilaterally on room air, speaking in full sentences ABDOMEN: Normoactive, soft, NTND MSK/EXTREMITIES: range of motion intact in all 4 extremities / he has full range of motion in his neck but has pain NEURO: CN 2-12 are grossly intact / speech is not dysarthric / strength is 5/5 PSYCH: alert and oriented to person place and time/ able to understand and follow all commands LABORATORY DATA: See below. Reviewed. No tox screen was done IMAGING: CT head " IMPRESSION: No acute intracranial abnormality seen. " CT neck " IMPRESSION: 1. Images are motion degraded, in particular from the C1 through C4 levels, most notably at the C1 and C2 levels. 2. No cervical spine fracture seen. " CT thoracic spine " IMPRESSION: 1. No thoracic spine fracture seen. 2. Right lower lobe atelectasis versus consolidation. " MRI brain: Grossly normal exam with no evidence of acute infarct, mass or bleeding MICROBIOLOGY: Please see below. ASSESSMENT: 64-year-old man with a history of HTN, chronic neck pain, dyslipidemia & AAA who is admitted for evaluation of new onset seizure. PLAN: 1. New onset seizure: The cause remains unclear at this time His head CT, MRI brain, calcium and serum glucose are unremarkable. The mildly elevated CPKs likely due to the seizure He received Keppra in the ER, and remains on 500 BID per neurology Plan: Fall precautions/ seizure precautions/ frequent neuro checks / neuro consulted pending recs / -prolactin on high end of normal -trop negative -Urine drug screen (he received morphine in the ER) -f/u EEG -Continue Keppra 500mg BID / instructed the patient not to drive until he receives clearance from neurology 2. Pneumonia CAP vs Aspiration Pneumonitis due to aspiration during seizure CT report showed right sided consolidation He had a runny nose and sore throat but no fever or other symptoms consistent with PNA He was transiently hypoxic as low as 88% and had a respiratory rate as high as 22 in the ER Plan: Unasyn for probable aspiration pneumonitis/pneumonia f/u strep throat cx / he will need influenza vaccine prior to discharge if he hasn't received it 3. SIRS. Likely reactive due to seizure. He does not look septic or toxic. Plan: Treat seizure/monitor vitals/treat pneumonia / IVF for tachycardia 4. Chronic HTN - Plan: Lisinopril 5. Chronic neck pain - Plan: Meloxicam and cyclobenzaprine DVT PROPHYLAXIS: Lovenox DISPOSITION: Pending neurology consult VS,Alessandro, I+O VS, Alessandro, I+O Laboratory Tests 06/27/19 16:31 06/28/19 05:28 Vital Signs Date Time Temp Pulse Resp B/P (MAP) Pulse Ox O2 Delivery O2 Flow Rate FiO2 06/28/19 13:30 24 95 Room Air 06/28/19 13:21 99.0 88 140/92 (108) I&O- Last 24 Hours up to 6 AM 06/28/19 06:00 Intake Total 410.169 ml Output Total 775 ml Balance -364.831 ml INDIO VARGAS MD Jun 28, 2019 15:26
[2019-06-28 16:00] VITALS: BP 143/94
[2019-06-28 18:07] LABS: INFLUENZA A AMPLIFICATION NEGATIVE (NEGATIVE); INFLUENZA B AMPLIFICATION NEGATIVE (NEGATIVE)
[2019-06-28 20:00] VITALS: BP 162/90
[2019-06-29] VITALS: BP 122/70
[2019-06-29] MEDS: AMPICILLIN SOD/SULBACTAM SOD 1.5 GM in D5W MINI-BAG PLUS 50 ML IV SCH ×2 (01:48→08:20)
[2019-06-29] MEDS: MORPHINE 2 MG/ML 1ML VIAL (J2270) IV PRN ×4 (02:51→11:22)
[2019-06-29 04:00] VITALS: BP 132/78
[2019-06-29 05:40] LABS: HEMATOCRIT 36.2 % (42.0-52.0); HEMOGLOBIN 11.7 g/dl (13.5-17.5); MEAN CORPUSCULAR HEMOGLOBIN 29.8 pg (27.0-33.0); MEAN CORPUSCULAR HGB CONC 32.3 g/dl (32.0-36.5); MEAN CORPUSCULAR VOLUME 92.3 fl (80.0-96.0); PLATELET COUNT, AUTOMATED 203 10^3/uL (150-450); RED BLOOD COUNT 3.92 10^6/uL (4.30-6.10)
[2019-06-29 06:02] LABS: CALCIUM LEVEL 7.9 MG/DL (8.8-10.2); CREATININE FOR GFR 1.3 MG/DL (0.70-1.30); GLOMERULAR FILTRATION RATE 59.2 (>49); POTASSIUM SERUM 4.1 MEQ/L (3.5-5.1)
--- NOTE | 2019-06-29 06:40 | EEG ---
DATE OF PROCEDURE: 06/28/2019 REFERRING PHYSICIAN: Dr. Marjorie Nielson DIAGNOSIS: New-onset seizures. EEG #: 20-20 HISTORY: The patient is a 64-year-old man who was seen at [facility] due to new-onset seizure. He was found face down and had a seizure with tongue biting. He was confused and sleepy afterwards. This EEG was done to rule out epileptic potential. He is currently taking Keppra, ampicillin, aspirin, Lyrica, Percocet, Ramelteon, morphine, etc. TECHNICAL DESCRIPTION: This digital EEG was recorded by 21 scalp and two EKG electrodes and was reviewed in bipolar and referential montages following reformatting in 10-20 international electrode placement system. INTERPRETATION The patient was noted to be in awake and drowsy states during this EEG. Resting awake background rhythm consisted of 8 Hz alpha activity measuring 15-40 microvolts in amplitude which was symmetric and reactive to eye opening. Attenuation of posterior dominant rhythm was seen during transition into drowsiness. Stage I and II sleep were reviewed and were symmetric bilaterally. Hyperventilation could not be performed. Photic stimulation remained unremarkable. EKG revealed normal sinus rhythm. No focal, lateralizing or epileptiform abnormalities were seen. No relevant clinical activity was noted. Intermittent bilateral temporal theta slowing was noted during drowsiness. CONCLUSION: This EEG in awake, drowsy state, stage I and II sleep is mildly abnormal due to presence of mild intermittent slowing of background rhythm consistent with mild diffuse cerebral dysfunction such as seen in mild encephalopathy due to multiple potential causes including toxic, metabolic, medication related, postictal phase, infectious, and multifocal structural brain abnormalities. No epileptiform abnormalities were seen. Clinical correlation is recommended.
[2019-06-29 08:00] VITALS: BP 122/88
[2019-06-29 08:19] VITALS: BP 138/78
[2019-06-29] MEDS: OMEGA-3 1000MG CAPSULE PO SCH (08:19)
[2019-06-29] MEDS: MULTIVITAMINS/MINERALS THERAP 1 TAB PO SCH (08:19)
[2019-06-29] MEDS: ROSUVASTATIN 10 MG TAB (CRESTOR) PO SCH (08:19)
[2019-06-29] MEDS: ASPIRIN 81 MG ENTERIC TAB PO SCH (08:19)
[2019-06-29] MEDS: lisinopriL 20 MG TAB PO SCH (08:19)
[2019-06-29] MEDS: PREGABALIN 100 MG CAP (LYRICA) PO SCH (08:19)
[2019-06-29] MEDS: MELOXICAM (MOBIC) 7.5 MG TAB PO SCH (08:19)
[2019-06-29] MEDS: levETIRAcetam **XR** 500 MG TABLET PO SCH (08:19)
[2019-06-29] MEDS: DOCUSATE SODIUM 100 MG CAP PO SCH (08:19)
[2019-06-29] MEDS: ENOXAPARIN 40 MG/0.4 ML SYRINGE (J1650) SC SCH (08:20)
[2019-06-29] MEDS: **NOTE PATIENT COMMENT** MISC XX SCH ×2 (08:20→08:21)
[2019-06-29] MEDS ORDERED: AUGMENTIN 875 MG TAB PO SCH (09:00)
--- NOTE | 2019-06-29 09:00 | CR ---
DATE OF CONSULTATION: 06/29/2019 REASON FOR CONSULTATION: New-onset seizure. HISTORY OF PRESENT ILLNESS: The patient is a 64-year-old male without a past medical history significant for seizure. The patient presented, witnessed to have collapsed while shaking landing face first against a plant at his home. His poor recollection of the event, thinking that he stood up, his , as a witness, states that he did not have a second fall but only had one fall with shaking lasting a few minutes. There was confused for about 15-20 minutes. He was able to recall facts and communicate more clearly while in the ambulance. The patient was brought to [facility]. Head CT was negative. MRI of the brain also has been obtained, which did not reveal any mass. There was a question of a subacute right parietal infarct, which is punctate in size. The patient does not have any neurological deficits at the present time, though he feels warm. He has an elevated white count. The patient has had sick family members with the flu, he states. The patient has not changed any social habits or any medications lately. He denies any head trauma other than this most recent fall. He complains of pain around his neck. CT scan did not reveal any fracture. He does not have any nuchal rigidity or meningismus. The patient was given Keppra 500 mg b.i.d. from the emergency room, despite this being his first seizure. He was not in status epilepticus. He did not have a second seizure in the hospital. The patient had an EEG, which showed mild encephalopathy without any epileptiform potential. The patient has been counseled that he is not allowed to drive, operate heavy machinery, climb ladders, working from heights, etc. for the next 6 months. I recommend the patient be discharged off of Keppra as this is a first-time seizure event. EEG did not show or support any epileptic activity. The patient will need neurological followup. REVIEW OF SYSTEMS: 14-point review of systems obtained and is negative except as per the history of present illness. PAST MEDICAL AND SURGICAL HISTORY: Hypertension, hyperlipidemia, history of abdominal aortic aneurysm, history of partial colectomy, resection of the precancerous lesion, chronic neck pain. SOCIAL HISTORY: The patient denies use of any alcohol, illicit drugs. He does chew tobacco. FAMILY HISTORY: Noncontributory. PHYSICAL EXAMINATION: Blood pressure is 143/94, pulse rate is 84, respiratory rate is 18, temperature is 98.8 degrees Fahrenheit, oxygenation 92% on room air. The patient is awake, alert, oriented to person, place and time. Speech, language, comprehension and repetition are intact. Pupils are 3 mm, round, reactive to light. Extraocular movements are intact in all directions without nystagmus. Sensation V1, V2-V3 is intact to light touch. There is no facial asymmetry to activation. Palate elevates symmetrically. Tongue is midline. There is no nuchal rigidity. Neck is supple. There is no pronator drift. Strength is 5/5, including bilateral deltoids, biceps, triceps, handgrip, iliopsoas, quadriceps, anterior tibialis. Deep tendon reflexes are 2+ throughout. Coordination: Normal [id number] without any signs of ataxia, dysmetria. Sensory is intact to light touch in all four extremities. Gait deferred. ASSESSMENT: 64-year-old male with new-onset generalized tonic-clonic shaking with post confusional state consistent with postictal state, probable new-onset seizure. PLAN: 1. Recommend the patient be placed on aspirin given possible findings of subacute tiny pontine stroke in the right parietal lobe, at least 4 weeks old. 2. Recommend statin therapy. 3. Recommend continuation of the patient's 81 mg aspirin and continuation of the patient's 20 mg rosuvastatin. 4. The patient can be taken off Keppra as this is his first seizure without recurrence. The patient is advised no driving, operating heavy machinery, climbing ladders, working from heights for the next 6 months. The patient will need neurological followup to maintain that 6 month rule, otherwise restrictions will be 12 months. The patient is retired. He does not need to drive, his will take him around. History obtained from both the patient and the patient's .
[2019-06-29 12:00] VITALS: BP 128/84
--- NOTE | 2019-06-29 13:13 | DS.PDOC ---
Discharge Summary General Date of Admission Jun 27, 2019 at 22:11 Date of Discharge 06/29/2019 Attending Physician: INDIO VARGAS MD Specialist/Consultants Involve: KASHIF VELAZQUEZ MD Discharge Summary PROCEDURES PERFORMED DURING STAY: None ADMITTING DIAGNOSES: 1. New onset seizure DISCHARGE DIAGNOSES: 1. New onset seizure of unclear etiology 2. chronic HTN 3. acute on chronic neck pain 4. dyslipidemia 5. History of AAA COMPLICATIONS/CHIEF COMPLAINT: New Onset Seizure. HISTORY OF PRESENT ILLNESS: 64-year-old man with a history of HTN, chronic neck pain, dyslipidemia & AAA who is admitted for evaluation of new onset seizure. HOSPITAL COURSE: 64-year-old man with no prior seizure history, who presented after a witnessed GTC by his where he fell face first and bit his tongue with LOC for a few minutes and confusion for about 20 minutes after. On arrival to [facility], vitals were stable and he had a non con head CT and MRI brain that were negative for a mass, bleeding or acute infarct, with question of a subacute punctate right parietal infarct without any neurological deficits on examination. Labs were notable for leukocytosis, with reports of sick family members with the flu. He otherwise complained of neck pain and had a CT neck that did not reveal any fractures and had no nuchal rigidity or meningisms on exam. While in the ED he was started on Keppra, and otherwise kept on Keppra 500 mg b.i.d while admitted. He had an EEG, which showed mild encephalopathy without any epileptiform potential and was seen by neurology that recommended stopping the Keppra, counseled that he is not allowed to drive, operate heavy machinery, climb ladders, working from heights, etc. for the next 6 months and is to follow up with neurology outpatient. His course was c/b persistent neck pain for which he required PRN morphine and is n ow being discharge on 5 days of oxycodone 5Q4 PRN with close PCP follow up. DISCHARGE MEDICATIONS: Please see below. ALLERGIES: Please see below. PHYSICAL EXAMINATION ON DISCHARGE: VITAL SIGNS: Please see below. GEN: well-nourished / well developed/ NAD INTEGUMENT: not flushed/ not jaundice HEENT: NCAT, PERRLA, EOMI, MMM, clear posterior oropharynx NECK: FROM with some pain with movement, no shooting radiation CVS: RRR/NMRG/ radial pedis pulses intact / no lower extremity edema LUNGS: Clear to auscultation bilaterally on room air, speaking in full sentences ABDOMEN: Normoactive, soft, NTND MSK/EXTREMITIES: range of motion intact in all 4 extremities / he has full range of motion in his neck but has pain NEURO: CN 2-12 are grossly intact / speech is not dysarthric / strength is 5/5 PSYCH: alert and oriented to person place and time/ able to understand and follow all commands LABORATORY DATA: See below. Reviewed. No tox screen was done IMAGING: CT head " IMPRESSION: No acute intracranial abnormality seen. " CT neck " IMPRESSION: 1. Images are motion degraded, in particular from the C1 through C4 levels, most notably at the C1 and C2 levels. 2. No cervical spine fracture seen. " CT thoracic spine " IMPRESSION: 1. No thoracic spine fracture seen. 2. Right lower lobe atelectasis versus consolidation. " MRI brain: Grossly normal exam with no evidence of acute infarct, mass or bleeding EEG: This EEG in awake, drowsy state, stage I and II sleep is mildly abnormal due to presence of mild intermittent slowing of background rhythm consistent with mild diffuse cerebral dysfunction such as seen in mild encephalopathy due to multiple potential causes including toxic, metabolic, medication related, postictal phase, infectious, and multifocal structural brain abnormalities. No epileptiform abnormalities were seen. Clinical correlation is recommended. PROGNOSIS: Good ACTIVITY: As tolerated. DIET: Regular DISCHARGE PLAN: Home with PCP and neurology follow up. To complete augmentin 5day course for possible aspiration pneumonia DISPOSITION: Home DISCHARGE INSTRUCTIONS: Home with PCP and neurology follow up. To complete augmentin 5day course for possible aspiration pneumonia ITEMS TO FOLLOWUP ON ON OUTPATIENT: 1. Seizure activity 2. Aspiration pneumonia DISCHARGE CONDITION: Stable. TIME SPENT ON DISCHARGE: 54 minutes. Vital Signs/I&Os Vital Signs Date Time Temp Pulse Resp B/P (MAP) Pulse Ox O2 Delivery O2 Flow Rate FiO2 06/29/19 12:00 98.7 72 14 128/84 (99) 96 Room Air I&O- Last 24 Hours up to 6 AM 06/29/19 05:59 Intake Total 4940 ml Output Total 775 ml Balance 4165 ml Laboratory Data Labs 24H Laboratory Tests 2 06/28/19 17:24: Influenza Type A (RT-PCR) NEGATIVE, Influenza Type B (RT-PCR) NEGATIVE 06/29/19 05:08: Nucleated Red Blood Cells % (auto) 0.0, Anion Gap 5L, Glomerular Filtration Rate 59.2, Calcium Level 7.9L CBC/BMP Laboratory Tests 06/29/19 05:08 Microbiology Microbiology 06/28/19 Group A Streptococcus Screen ([facility]) - Final, Complete 06/28/19 Group A Streptococcus Screen ([facility]) - Final, Complete Discharge Medications Scheduled Ascorbic Acid (Vitamin C) 500 Mg Tablet, 500 MG PO DAILY, (Reported) Aspirin (Aspirin EC) 81 Mg Tablet.dr, 81 MG PO DAILY, (Reported) Lisinopril (Lisinopril) 40 Mg Tablet, 20 MG PO DAILY, (Reported) Meloxicam (Meloxicam) 15 Mg Tablet, 15 MG PO DAILY, (Reported) Multivitamins (Thera M Plus Tablet) 1 Each Tablet, 1 TAB PO DAILY, (Reported) [place]-3/Dha/Epa/Fish Oil (Fish Oil 1,000 mg Softgel) 1 Each Capsule, 1 CAP PO DAILY, (Reported) Pregabalin (Lyrica) 200 Mg Capsule, 200 MG PO DAILY, (Reported) Rosuvastatin Calcium (Rosuvastatin Calcium) 20 Mg Tablet, 20 MG PO DAILY, (Reported) Vitamin B Complex (Vitamin B Complex) 1 Each Tablet, 1 TAB PO DAILY, (Reported) Vitamin C/Biotin (Hair, Skin and Nails Gummies) 1 Each Tab.chew, 1 CHEW PO DAILY, (Reported) Scheduled PRN Cyclobenzaprine HCl (Cyclobenzaprine HCl) 10 Mg Tablet, 10 MG PO TID PRN for MUSCLE SPASMS, (Reported) Diclofenac Sodium (Diclofenac Sodium) 1% 100GM Gel..gram., 2 GM TOP BID PRN for PAIN, (Reported) APPLIES TO FEET AND KNEES NEEDED Melatonin (Melatonin) 3 Mg Tablet, 3 MG PO QHS PRN for SLEEP, (Reported) Allergies Coded Allergies: No Known Allergies (Verified , 03/01/19) INDIO VARGSA MD Jun 29, 2019 13:13
[2019-06-29] MEDS ORDERED: AMOX875T2 PO (13:21)
[2019-06-29] MEDS ORDERED: ROXI1TAB2 PO (13:21)
== END 2019-06-29 16:13 | disposition home or self-care (01) | DRG 100 ==
LOC: M ED 15:43 → M ED INP 22:11 → ENRESERV 23:44 → M PCU 06-28 00:13
PROVIDERS: ADMIT Internal Medicine; ATTEND Internal Medicine
DX: G40.409 Other generalized epilepsy and epileptic syndromes, not intractable, without status epilepticus (principal); J69.0 Pneumonitis due to inhalation of food and vomit; I10 Essential (primary) hypertension; E78.5 Hyperlipidemia, unspecified; M54.2 Cervicalgia; I71.4 Abdominal aortic aneurysm, without rupture; Z79.899 Other long term (current) drug therapy; Z79.82 Long term (current) use of aspirin; F17.220 Nicotine dependence, chewing tobacco, uncomplicated

== ENCOUNTER → 2019-07-21 | Outpatient (CLI) | payer OTHER ==
[~2019-07-21] MED LIST changes: +AMOX875T2 PO; +ASPI-161 PO; +C 50TAB PO; +DICL1GEL3 TOP; +LYRI200C PO; +MELA3TAB41 PO; +NICO4LOZ MT; +OMEG10002 PO; +ROSU20TA5 PO; +ROXI1TAB2 PO; +VITA1TAB61 PO; +VITMTA PO
--- NOTE | 2019-07-23 03:44 | ECWPNPC ---
PATIENT NAME: DELILAH CONWAY : 1955 GENDER: MALE VISIT DATE: 07/21/2019 DISCHARGE DATE: 07/21/19 0951 VISIT LOCKED DATE TIME: PHYSICIAN: JANN PEÑA RESOURCE: JANN PEÑA REASON FOR APPOINTMENT 1. BILAT FOOT PAIN HISTORY OF PRESENT ILLNESS HISTORY OF PRESENT ILLNESS: PAIN THE PATIENT DESCRIBES THE PAIN... 64-YEAR-OLD MALE IN FOR CHRONIC PAIN FOLLOW-UP. HE FEELS THE MEDICATIONS ARE WORKING WELL AND DENIES MED SIDE EFFECTS AT THIS TIME. HE RATES PAIN CURRENTLY AT AN 8 OUT OF 10 AND DESCRIBES IT SHARP, BURNING, STABBING, AND SHOOTING. HE DOES ADMIT THAT HE WAS ONLY RECENTLY ABLE TO GET THE MEDICATION SO HE WAS ONLY ON IT FOR A FEW DAYS PRIOR TO THIS VISIT. FALL RISK SCREENING: SCREENING :NO FALLS REPORTED IN THE LAST YEAR CURRENT MEDICATIONS TAKING CYCLOBENZAPRINE HCL 10 MG TABLET ORALLY TID TAKING MELOXICAM 15 MG TABLET ORALLY DAILY TAKING LISINOPRIL 20 MG TABLET ORALLY DAILY TAKING ROSUVASTATIN CALCIUM 20 MG TABLET ORALLY DAILY TAKING ASPIR-81 TAKING OXYCODONE-ACETAMINOPHEN 5-325 MG TABLET 1 TABLET NEEDED ORALLY BID TAKING GABAPENTIN 300 MG CAPSULE 1 CAPSULE ORALLY THREE TIMES DAILY START DAY 4 NOT-TAKING LYRICA 100 MG CAPSULE 1 CAPSULE ORALLY ONCE A DAY X 1 WEEK THEN EVERY OTHER DAY NOT-TAKING GABAPENTIN 100 MG CAPSULE 1 CAPSULE ORALLY THREE TIMES DAILY X 3 DAYS NOT-TAKING FLEXERIL MEDICATION LIST REVIEWED AND RECONCILED WITH THE PATIENT PAST MEDICAL HISTORY HYPERTENSION COLON CANCER HIGH CHOLESTEROL ARTHRITIS DIVERTICULITIS SORTIC ANEURYSEM ANEMIA SEIZURE- 3 WEEKS AGO- ADMITTED TO HOSPITAL AFTER ([facility])- UNKNOWN REASON- PT QUESTIONING RELATED TO RED BULL HE HAD DRANK 3 THE DAY OF SEIZURE- WILL BE SEEING DR STYLES 09/13/2019 ALLERGIES N.K.D.A. SURGICAL HISTORY COLON SURGERY 2016 HERNIA SURGERY WHEN TEENAGER EYE SURGERY A CHILD FAMILY HISTORY FATHER: MOTHER: , DIAGNOSED WITH HYPERTENSION SIBLINGS: MOTHER OF LUNG CANCERBROTHER OF BONE/BRAIN CANCERSISTER MURDRED. SOCIAL HISTORY GENERAL: TOBACCO USE ARE YOU A:NONSMOKER ADDITIONAL FINDINGS: TOBACCO USERCHEWS FINE CUT TOBACCO SMOKING CESSATION INFORMATION GIVEN07/21/2019 OTHERS AT HOME: GRANDCHILD AND SON AND SIGNIFICANT OTHER 4 DOGS AND 3 CATS. HOUSING: RENTS APARTMENT. EDUCATION LEVEL OF EDUCATION:NOT FINISHED COLLEGE DIET: REGULAR. LANGUAGE LANGUAGES SPOKEN:[place] DOMESTIC VIOLENCE DO YOU FEEL SAFE IN YOUR ENVIRONMENT?YES RECREATIONAL DRUG USE DRUG USE?NO PT DECLINES ANY PAST OR PRESENT HISTORY EXERCISE: WALKS. PAIN CLINIC PFS, CLERGY, PUBLIC HEALTH REFERRALS PFS REFERRAL NEEDED?NO CLERGY REFERRAL NEEDED?NO PUBLIC HEALTH REFERRAL NEEDED?NO WAS THE PROVIDER NOTIFIED OF ANY PERTINENT INFO?YES HAS THE PATIENT BEEN EDUCATED REGARDING HIS/HER PLAN OF CARE?YES HAS THE PATIENT BEEN EDUCATED REGARDING PAIN, THE RISK FOR PAIN, THE IMPORTANCE OF EFFECTIVE PAIN MANAGEMENT, AND THE PAIN ASSESSMENT PROCESS?YES CAFFEINE CAFFEINE USE?YES ONE CUP IN THE MORNING, 1 CUP DAILY ADVANCE DIRECTIVE ADVANCE DIRECTIVE DISCUSSED WITH PATIENT:YES REFUGIO RECINOS- [phone] IS HCP RESTORATIONISM RESTORATIONISM TEMPLE IS HOW PT WAS RAISED , BUT STATES NO PREFERENCE MARITAL STATUS: SINGLE. ALCOHOL SCREENING DID YOU HAVE A DRINK CONTAINING ALCOHOL IN THE PAST YEAR?NO POINTS0 INTERPRETATIONNEGATIVE OCCUPATION: RETIRED. HOSPITALIZATION/MAJOR DIAGNOSTIC PROCEDURE SURGERIES AND DIVERTICULITIS HOSPITALIZED AFTER A SEIZURE 06/2019 REVIEW OF SYSTEMS REVIEWED BY: PROVIDER: RENETTA PEÑA [employer] CERTIFIED INTERNETWORK EXPERT-C . CONSTITUTIONAL: ANY CHANGE IN YOUR MEDICAL CONDITION? YES- HAD A SEIZURE 3 WEEKS AGO, WILL BE SEEING DR STYLES 09/13/2019 ONLY HAD 1 SEIZURE AND WAS ADDMITTED TO [facility] AFTER, HAS NOT HAD ANOTHER SINCE . CHILLS NO . FEVER NO . INFECTION: DO YOU HAVE NEW INFECTIONS? NO . DO YOU HAVE HISTORY OF MRSA? NO . MUSCULOSKELETAL: ANY NEW PATTERNS OF PAIN OR NUMBNESS? NO . GASTROENTEROLOGY: ANY NEW CHANGE IN BOWEL CONTROL? NO . GENITOURINARY: ANY NEW CHANGE IN BLADDER CONTROL? NO . IS THERE A CHANCE YOU COULD BE ? NO . HEMATOLOGY/LYMPH: DO YOU TAKE ANY BLOOD THINNERS? (FOR EXAMPLE- COUMADIN, PLAVIX, AGGRENOX, PLATEL, PRADAXA, OR XARELTO) NO . WHEN WAS YOUR LAST DOSE? DATE: TIME: . NEUROLOGY: HAVE YOU FALLEN IN THE PAST 12 MONTHS? YES- WHEN HE HAD THE FALL 3 WEEKS AGO WITH SEIZURE, CUT NOSE AND HIT HEAD WAS HOSPITALIZED FROM SEIZURE . ANY NEW EXTREMITY NUMBNESS OR WEAKNESS? NO . CARDIOLOGY: DO YOU HAVE A PACEMAKER OR DEFIBRILLATOR? NO . RESPIRATORY: HAVE YOU BEEN SICK IN THE PAST WEEK? NO . FEVER YES- A COUPLE OF DAYS AGO (07/18/2019) . FLU LIKE SYMPTOMS? NO . COUGH NO . INTEGUMENTARY: DO YOU HAVE ANY RASHES OR OPEN SORES? NO . ALLERGIC/IMMUNO: ARE YOU ALLERGIC TO IV DYE? NO . ANY NEW ALLERGIES? NO . PSYCHIATRIC: DO YOU HAVE THOUGHTS OF HURTING YOURSELF OR SOMEONE ELSE? NO . ARE YOU ABUSED, NEGLECTED, OR IN AN UNSAFE ENVIRONMENT? NO . ENDOCRINOLOGY: ARE YOU DIABETIC? NO . OTHER: DO YOU NEED ANY PRESCRIPTIONS? NO . IF YES, PLEASE LIST: ____ . ANY NEW PROBLEMS WITH YOUR MEDICATIONS? NO . WHEN DID YOU LAST EAT? ____ . WHEN DID YOU LAST DRINK? ____ . WHAT DID YOU LAST DRINK? ____ . NAME OF PERSON DRIVING YOU HOME? ____ . DO YOU HAVE ANY OTHER QUESTIONS OR CONCERNS NO- PNEUMONIA VACCINE 07/19/2019 . VITAL SIGNS WT 183.8 LBS, HT 57 IN, BMI 39.77 INDEX, BP 151/80 MM HG, HR 93 /MIN, RR 18 /MIN, TEMP 97.1 F, OXYGEN SAT % 100%, SAFE IN ENV? (Y/N) YES, NA INITIALS AW 0915, REVIEWED BY: KAMI. EXAMINATION GENERAL EXAMINATION: GENERALNO ACUTE DISTRESS, WELL NOURISHED AND HYDRATED. PSYCHAPPROPRIATE MOOD AND AFFECT . LUNGS:CLEAR TO AUSCULTATION BILATERALLY, NO WHEEZES, RHONCHI, RALES. HEART:NO MURMURS, REGULAR RATE AND RHYTHM. ASSESSMENTS PAIN IN RIGHT FOOT - M79.671 (PRIMARY) PAIN IN LEFT FOOT - M79.672 TREATMENT PAIN IN RIGHT FOOT CLINICAL NOTES: 64-YEAR-OLD MALE IN FOR CHRONIC PAIN FOLLOW-UP. GIVEN PRESENTING SYMPTOMS AND RESULTS OF PHYSICAL EXAMINATION RECOMMENDED CONTINUATION OF CURRENT MEDICATION REGIMEN WITH FOLLOW-UP IN 3 MONTHS. PATIENT HAS EXPRESSED UNDERSTANDING OF AND WAS IN AGREEMENT WITH TREATMENT PLAN. GIVEN TIME TO ASK QUESTIONS AND EXPRESS CONCERNS., ISTOP REGISTRY REVIEWED AND DEMONSTRATES COMPLLIANCE. (REF # [id number] ) BRINGS IN MEDICATIONS WHICH IS APPROPRIATE FOR WHAT WAS DISPENSED. RECENT URINE TOXICOLOGY REVIEWED. NO UNAUTHORIZED MEDICATIONS. NO ILLICIT SUBSTANCES AND PRESCRIBED MEDICATIONS WERE PRESENT. OTHERS NOTES: INFORMATION REVIEWED AND VERIFIED WITH PT 07/21/2019 0312 KAMI. PROCEDURE CODES FA211 ESTABILISHED PATIENT [facility] FACILITY CHARGE DISPOSITION & COMMUNICATION FOLLOW UP 3 MONTHS (REASON: BILATERAL FOOT PAIN) ELECTRONICALLY SIGNED BY JASPREET RIVERA ON 07/22/2019 AT 08:37 AM EST DISCLAIMER : THIS IS A VISIT SUMMARY EXTRACTED FROM THE [employer] CHART. IT IS NOT A COPY OF THE [employer] PROGRESS NOTE. MIGUE
== END ==
LOC: M PAIN 09:30
PROVIDERS: ATTEND Family Medicine
DX: M79.671 Pain in right foot (principal); M79.672 Pain in left foot; G89.29 Other chronic pain; I10 Essential (primary) hypertension; F17.220 Nicotine dependence, chewing tobacco, uncomplicated; Z79.82 Long term (current) use of aspirin; Z79.899 Other long term (current) drug therapy

== ENCOUNTER → 2019-09-23 | Outpatient (CLI) | payer OTHER ==
[~2019-09-23] MED LIST changes: +CYCL-707 PO; -CYCL10TA PO; -MELA3TAB41 PO; +MELA3TAB62 PO
--- NOTE | 2019-09-26 23:50 | ECWPNPC ---
PATIENT NAME: DELILAH CONWAY : 1955 GENDER: MALE VISIT DATE: 09/23/2019 DISCHARGE DATE: 09/23/19 1357 VISIT LOCKED DATE TIME: PHYSICIAN: JANN PEÑA RESOURCE: JANN PEÑA REASON FOR APPOINTMENT 1. NBP-NECK AND BACK-IN OFFICE VISIT - PAT COMPLETED HISTORY OF PRESENT ILLNESS HISTORY OF PRESENT ILLNESS: PAIN THE PATIENT DESCRIBES THE PAIN... 64 YEAR OLD MALE IN FOR CHRONIC PAIN FOLLOW UP TO DISCUSS NECK AND BACK PAIN. HE FEELS THE OXYCODONE IS HELPFUL BUT IS QUESTIONING IF 3 TIMES A DAY WOULD BE MORE SO THE MEDICATION WEARS OFF MIDPART TO THE DAY. FALL RISK SCREENING: SCREENING :NO FALLS REPORTED IN THE LAST YEAR CURRENT MEDICATIONS TAKING MELOXICAM 15 MG TABLET ORALLY DAILY TAKING LISINOPRIL 20 MG TABLET ORALLY DAILY TAKING ROSUVASTATIN CALCIUM 20 MG TABLET ORALLY DAILY TAKING ASPIR-81 DAILY TAKING GABAPENTIN 300 MG CAPSULE 1 CAPSULE ORALLY THREE TIMES DAILY START DAY 4 TAKING OXYCODONE-ACETAMINOPHEN 5-325 MG TABLET 1 TABLET NEEDED ORALLY BID NEEDED NOT-TAKING CYCLOBENZAPRINE HCL 10 MG TABLET ORALLY TID NOT-TAKING LYRICA 100 MG CAPSULE 1 CAPSULE ORALLY ONCE A DAY X 1 WEEK THEN EVERY OTHER DAY NOT-TAKING GABAPENTIN 100 MG CAPSULE 1 CAPSULE ORALLY THREE TIMES DAILY X 3 DAYS NOT-TAKING FLEXERIL MEDICATION LIST REVIEWED AND RECONCILED WITH THE PATIENT PAST MEDICAL HISTORY HYPERTENSION COLON CANCER HIGH CHOLESTEROL ARTHRITIS DIVERTICULITIS SORTIC ANEURYSEM ANEMIA SEIZURE- 3 WEEKS AGO- ADMITTED TO HOSPITAL AFTER ([facility])- UNKNOWN REASON- PT QUESTIONING RELATED TO RED BULL HE HAD DRANK 3 THE DAY OF SEIZURE- WILL BE SEEING DR STYLES 09/13/2019 CHRONIC BACK/NECK PAIN LEFT HIP PAIN ALLERGIES N.K.D.A. SURGICAL HISTORY COLON SURGERY 2016 HERNIA SURGERY WHEN TEENAGER EYE SURGERY A CHILD FAMILY HISTORY FATHER: MOTHER: , DIAGNOSED WITH HYPERTENSION SIBLINGS: MOTHER OF LUNG CANCERBROTHER OF BONE/BRAIN CANCERSISTER MURDRED. SOCIAL HISTORY GENERAL: TOBACCO USE ARE YOU A:NONSMOKER ADDITIONAL FINDINGS: TOBACCO USERCHEWS FINE CUT TOBACCO SMOKING CESSATION INFORMATION GIVEN07/21/2019 LATEX QUESTIONNAIRE LATEX ALLERGY : HAVE YOU EVER DEVELOPED ANY TYPE OF REACTION AFTER HANDLING LATEX PRODUCTS SUCH RUBBER GLOVES, CONDOMS, DIAPHRAGMS, BALLOONS, SOCKS, OR UNDERWEAR?NO LATEX ALLERGY : HAVE YOU EVER DEVELOPED ANY TYPE OF REACTION DURING OR AFTER DENTAL APPOINTMENT, VAGINAL/RECTAL EXAMINATION, SURGICAL PROCEDURE, OR ANY OTHER EXPOSURE?NO LATEX RISK : HAVE YOU EVER HAD ANY DIFFICULTY BREATHING OR HIVES AFTER EATING OR HANDLING ANY FRUITS, OR VEGETABLES; SUCH KIWI, BANANAS, STONE FRUITS, OR CHESTNUTSNO LATEX RISK : DO YOU HAVE A PREVIOUS PERSONAL HISTORY OF MORE THAN NINE SURGERIES, SPINA BIFIDA, OR REPEATED CATHERIZATIONS? NO LATEX RISK : ARE YOU FREQUENTLY EXPOSED TO LATEX PRODUCTS IN YOUR OCCUPATION?NO DATE ASKED : 09/22/2019 ALCOHOL SCREENING DID YOU HAVE A DRINK CONTAINING ALCOHOL IN THE PAST YEAR?NO POINTS0 INTERPRETATIONNEGATIVE RECREATIONAL DRUG USE DRUG USE?NO PT DECLINES ANY PAST OR PRESENT HISTORY CAFFEINE CAFFEINE USE?YES ONE CUP IN THE MORNING, 1 CUP DAILY JUDAISM JUDAISM NONDENOMINATIONAL IS HOW PT WAS RAISED , BUT STATES NO PREFERENCE LANGUAGE LANGUAGES SPOKEN:SLOVENIAN EDUCATION LEVEL OF EDUCATION:NOT FINISHED COLLEGE DOMESTIC VIOLENCE DO YOU FEEL SAFE IN YOUR ENVIRONMENT?YES OCCUPATION: RETIRED. DIET: REGULAR. EXERCISE: WALKS. MARITAL STATUS: SINGLE. OTHERS AT HOME: GRANDCHILD AND SON AND SIGNIFICANT OTHER 4 DOGS AND 3 CATS. NEW PATIENT PAIN DIARY TODAY'S VISITNOTES 09/22/2019 PATIENT DESCRIBES PAIN :BURNING, HAVE IT ALL THE TIME, STABBING, OTHER INTENSE FROM 0-10, WHAT LEVEL IS YOUR PAIN TODAY?10 PAIN CLINIC PFS, CLERGY, PUBLIC HEALTH REFERRALS PFS REFERRAL NEEDED?NO CLERGY REFERRAL NEEDED?NO PUBLIC HEALTH REFERRAL NEEDED?NO WAS THE PROVIDER NOTIFIED OF ANY PERTINENT INFO?YES HAS THE PATIENT BEEN EDUCATED REGARDING HIS/HER PLAN OF CARE?YES HAS THE PATIENT BEEN EDUCATED REGARDING PAIN, THE RISK FOR PAIN, THE IMPORTANCE OF EFFECTIVE PAIN MANAGEMENT, AND THE PAIN ASSESSMENT PROCESS?YES HOUSING: RENTS APARTMENT. ADVANCE DIRECTIVE ADVANCE DIRECTIVE DISCUSSED WITH PATIENT:YES REFUGIO RECINOS- [phone] IS HCP HOSPITALIZATION/MAJOR DIAGNOSTIC PROCEDURE SURGERIES AND DIVERTICULITIS HOSPITALIZED AFTER A SEIZURE 06/2019 REVIEW OF SYSTEMS REVIEWED BY: PROVIDER: RENETTA VOGEL-Isadora . CONSTITUTIONAL: ANY CHANGE IN YOUR MEDICAL CONDITION? YES, WENT TO URGENT CARE TODAY FOR HIP PAIN - CAUSED HIM TO DROP BACK TO HIS BED TWICE WHILE TRYING TO STAND UP, WAS GIVEN KETORALAC WITH NO RELIEF . CHILLS NO . FEVER NO . INFECTION: DO YOU HAVE NEW INFECTIONS? NO . DO YOU HAVE HISTORY OF MRSA? NO . MUSCULOSKELETAL: ANY NEW PATTERNS OF PAIN OR NUMBNESS? YES, INCREASED PAIN TO LEFT HIP . GASTROENTEROLOGY: ANY NEW CHANGE IN BOWEL CONTROL? NO . GENITOURINARY: ANY NEW CHANGE IN BLADDER CONTROL? NO . IS THERE A CHANCE YOU COULD BE ? NO . HEMATOLOGY/LYMPH: DO YOU TAKE ANY BLOOD THINNERS? (FOR EXAMPLE- COUMADIN, PLAVIX, AGGRENOX, PLATEL, PRADAXA, OR XARELTO) NO . WHEN WAS YOUR LAST DOSE? DATE: TIME: . NEUROLOGY: HAVE YOU FALLEN IN THE PAST 12 MONTHS? NO . ANY NEW EXTREMITY NUMBNESS OR WEAKNESS? NO . CARDIOLOGY: DO YOU HAVE A PACEMAKER OR DEFIBRILLATOR? NO . RESPIRATORY: HAVE YOU BEEN SICK IN THE PAST WEEK? NO . FEVER NO . FLU LIKE SYMPTOMS? NO . COUGH NO . INTEGUMENTARY: DO YOU HAVE ANY RASHES OR OPEN SORES? NO . ALLERGIC/IMMUNO: ARE YOU ALLERGIC TO IV DYE? NO . ANY NEW ALLERGIES? NO . PSYCHIATRIC: DO YOU HAVE THOUGHTS OF HURTING YOURSELF OR SOMEONE ELSE? NO . ARE YOU ABUSED, NEGLECTED, OR IN AN UNSAFE ENVIRONMENT? NO . ENDOCRINOLOGY: ARE YOU DIABETIC? NO . OTHER: DO YOU NEED ANY PRESCRIPTIONS? NO . IF YES, PLEASE LIST: ____ . ANY NEW PROBLEMS WITH YOUR MEDICATIONS? YES, STATES HE STOPPED TAKING HIS CYCLOBENZAPRINE IT WAS NOT HELPING AT ALL WITH THE PAIN . WHEN DID YOU LAST EAT? ____ . WHEN DID YOU LAST DRINK? ____ . WHAT DID YOU LAST DRINK? ____ . NAME OF PERSON DRIVING YOU HOME? ____ . DO YOU HAVE ANY OTHER QUESTIONS OR CONCERNS YES, STATES THAT ONLY BEING ABLE TO TAKE THE PERCOCET TWICE A DAY IS NOT PROVIDING ADEQUATE PAIN RELIEF. WOULD ALSO LIKE TO DISCUSS HIS INCREASED LEFT HIP PAIN AND WHETHER THIS COULD BE CAUSED BY HIS ARTHRITIS . VITAL SIGNS WT 183.4 LBS, HT 57 IN, BMI 39.68 INDEX, BP 161/82 MM HG, HR 69 /MIN, RR 18 /MIN, TEMP 97.3 F, OXYGEN SAT % 99%, NA INITIALS SC 13:17. EXAMINATION GENERAL EXAMINATION: GENERALNO ACUTE DISTRESS, WELL NOURISHED AND HYDRATED. PSYCHAPPROPRIATE MOOD AND AFFECT . NECK:DENIES POINT TENDERNESS ALONG CERVICAL SPINE, SURROUNDING SKIN SHOWS NO ERYTHEMA, ECCHYMOSIS, INCREASED WARMTH, AND/OR SKIN ERUPTIONS NOTED. DENIES INCREASED PAIN IN THE CERVICAL SPINE WHEN ASKED LIFT ARMS AGAINST RESISTANCE IS NOTED TO HAVE POINT TENDERNESS ALONG THE RIGHT AND LEFT TRAPEZIUS . LUNGS:CLEAR TO AUSCULTATION BILATERALLY, NO WHEEZES, RHONCHI, RALES. HEART:NO MURMURS, REGULAR RATE AND RHYTHM. BACK:POINT TENDER LEFT ASPECT OF LUMBAR SPINE, SURROUNDING SKIN SHOWS NO ERYTHEMA, ECCHYMOSIS, INCREASED WARMTH, AND/OR SKIN ERUPTIONS NOTED. . MUSCULOSKELETAL:EQUAL STRENGTH OF THE LOWER EXTREMITIES BILATERALLY . ASSESSMENTS CERVICALGIA - M54.2 (PRIMARY) CHRONIC BILATERAL LOW BACK PAIN - M54.5 TREATMENT CERVICALGIA INCREASE OXYCODONE-ACETAMINOPHEN TABLET, 5-325 MG, 1 TABLET NEEDED, ORALLY, THREE TIMES DAILY NEEDED, 30 DAYS, 90 [facility] MRI SPINE, CERVICAL WITHOUT [id number],NICOLE 09/26/2019 10:40:31 AM > [place] AUTH # [id number] EXPIRES 12/20/19 AND COVERS CERVICAL AND LUMBAR MRI'S CLINICAL NOTES: 44-YEAR-OLD MALE IN FOR NECK AND BACK PAIN. GIVEN PRESENTING SYMPTOMS AND RESULTS OF PHYSICAL EXAMINATION RECOMMENDED CERVICAL AND LUMBAR MRI WITH FOLLOW-UP THEREAFTER. RECOMMENDED INCREASING OXYCODONE TO 3 TABS DAILY NEEDED. PATIENT HAS EXPRESSED UNDERSTANDING OF AND WAS IN AGREEMENT WITH TREATMENT PLAN. GIVEN TIME TO ASK QUESTIONS AND EXPRESS CONCERNS. , ISTOP REGISTRY REVIEWED AND DEMONSTRATES COMPLLIANCE. (REF # [id number] ) BRINGS IN MEDICATIONS WHICH IS APPROPRIATE FOR WHAT WAS DISPENSED. RECENT URINE TOXICOLOGY REVIEWED. NO UNAUTHORIZED MEDICATIONS. NO ILLICIT SUBSTANCES AND PRESCRIBED MEDICATIONS WERE PRESENT. CHRONIC BILATERAL LOW BACK PAIN [facility] MRI LUMBAR W/O CONTRAST (CPT [id number],NICOLE 09/26/2019 10:43:22 AM > [facility] AUTH # [id number] EXPIRES 12/20/19 AND COVERS CERVICAL AND LUMBAR MRI'S OTHERS NOTES: PRE-SCREENING COMPLETED 09/22/2019 1800 JS. PROCEDURE CODES FA211 ESTABILISHED PATIENT [facility] FACILITY CHARGE DISPOSITION & COMMUNICATION FOLLOW UP POST DIAGNOSTIC IMAGING (REASON: CERVICAL AND LUMBAR MRI) ELECTRONICALLY SIGNED BY JASPREET RIVERA ON 09/26/2019 AT 01:20 PM EDT DISCLAIMER : THIS IS A VISIT SUMMARY EXTRACTED FROM THE [employer] CHART. IT IS NOT A COPY OF THE [employer] PROGRESS NOTE. MTDD
== END ==
LOC: M PAIN 13:15
PROVIDERS: ATTEND Family Medicine
DX: M54.2 Cervicalgia (principal); M54.5 Low back pain; I10 Essential (primary) hypertension; Z79.82 Long term (current) use of aspirin; Z79.891 Long term (current) use of opiate analgesic; Z79.899 Other long term (current) drug therapy

== ENCOUNTER → 2019-10-04 | Outpatient (CLI) | payer OTHER ==
--- NOTE | 2019-10-04 14:02 | REP ---
MRI CERVICAL SPINE WITHOUT CONTRAST: HISTORY: Neck pain. Comparison is made with CT imaging of the cervical spine from June 27, 2019. TECHNIQUE: Sagittal and axial T1- and T2-weighted scans are acquired in the usual fashion with and without fat saturation. Sequences include spin echo, turbo spin-echo, and STIR imaging sequences. MRI FINDINGS: Cervical vertebral body heights are preserved. Alignment is normal. No bony destructive lesion is seen. Craniocervical junction is unremarkable. Axial and sagittal images taken at C2-C3 a show no significant finding. At C3-C4, there is mild diffuse disc bulging which effaces the ventral subarachnoid space and subtly flattens the ventral margin of the cord. There is minimal uncovertebral spurring on the left. No significant foraminal narrowing is seen. Canal size is borderline. AP dimension of the thecal sac at this level in the midline is 8.8 mm. At C4-C5, there is moderate central canal stenosis due to diffuse moderate disc bulging effacing the ventral aspect of the cord, ligamentum flavum and facet hypertrophy effacing the cord from the dorsal lateral aspect. Midline AP dimension of the thecal sac is 6.4 mm at this level. CSF signal is effaced from the thecal sac circumferentially. There is bilateral uncovertebral spurring producing foraminal narrowing, left more so than right. At C5-C6, there is posterior disc bulging and osteophytic ridging mild in degree. This flattens the ventral margin of the thecal sac but there is no evidence of cord compression. There is minimal right-sided uncovertebral spurring at C5-C6. At C6-C7, there is diffuse disc bulging and osteophytic ridging effacing the ventral thecal sac margin but not compressing the cord. There is mild bilateral uncovertebral spurring is C6-C7. The C7-T1 disc level is unremarkable. IMPRESSION: Degenerative spondylosis changes. The dominant abnormality is at C4-C5 where there is central canal stenosis, moderate in degree. Bilateral uncovertebral spurring and neural foraminal narrowing is seen at C4-C5. Electronically Signed by Robbi Kelly MD 10/04/2019 06:47 P
--- NOTE | 2019-10-04 14:12 | REP ---
MRI LUMBAR SPINE WITHOUT CONTRAST: HISTORY: Chronic bilateral low back pain. Comparison is made with imaging from CT study abdomen and pelvis May 13, 2018. Comparison radiographs of the lumbar spine are dated May 19, 2018. TECHNIQUE: Sagittal and axial T1- and T2-weighted scans are acquired in the usual fashion with and without fat saturation. Sequences include spin echo, turbo spin-echo, and STIR imaging sequences. FINDINGS: Lumbar vertebral body heights are preserved alignment is normal. There is no evidence of spondylolysis or spondylolisthesis. No extra vertebral abnormality is appreciated. The tip of the conus medullaris is normal in position and appearance at T12-L1. There are reactive marrow changes and edema on either side of the degenerated L2-3 disc. Axial and sagittal images at L2-3 demonstrate a broad-based left posterior disc protrusion indenting and compressing the thecal sac and extending into the neural foramen producing left-sided foraminal narrowing mild in degree at L2-3. Remainder of the disc margin bulge is somewhat indenting the ventral thecal sac. Canal is mildly narrowed, midline AP dimension of the thecal sac at L2-3 is 9.5 mm. There is minimal ligamentum flavum hypertrophy. At L3-L4, there is degenerative narrowing and desiccation of the disc. Its posterior margin bulges diffusely effacing the ventral aspect of the thecal sac. There is no nerve root compression. The foraminal disc segments bulge as well. Canal size is borderline. Midline AP dimension of the thecal sac at L3-4 is 10.5 mm. At L4-L5, there is a small central focal disc protrusion. There is mild diffuse disc bulging. No neural foraminal narrowing is seen. Canal size is borderline. Ligamentum flavum and facet hypertrophy produce a somewhat triangular thecal sac configuration on axial images. There is mild right-sided foraminal narrowing from foraminal disc bulging. At L5-S1, there is mild ligamentum flavum and facet hypertrophy. No focal disc protrusion is seen. There is mild right-sided neural foraminal narrowing due to discogenic spurring, disc bulging, and facet hypertrophy. IMPRESSION: Degenerative spondylosis changes with multilevel thecal sac compression and mild spinal stenosis. There is right-sided neural foraminal narrowing at L4-5 and L5-S1. There is a left posterior focal disc protrusion at L2-3. Electronically Signed by Robbi Kelly MD 10/04/2019 06:47 P
== END ==
LOC: M RAD 10:00
PROVIDERS: ATTEND Family Medicine
DX: M47.892 Other spondylosis, cervical region (principal); M47.896 Other spondylosis, lumbar region; M54.5 Low back pain; M54.2 Cervicalgia

== ENCOUNTER → 2019-10-21 | Outpatient (CLI) | payer OTHER ==
--- NOTE | 2019-10-25 07:08 | ECWPNPC ---
PATIENT NAME: DELILAH CONWAY : 1955 GENDER: MALE VISIT DATE: 10/21/2019 DISCHARGE DATE: 10/21/19 1018 VISIT LOCKED DATE TIME: PHYSICIAN: JANN PEÑA RESOURCE: JANN PEÑA REASON FOR APPOINTMENT 1. BILATERAL FOOT PAIN PAT DONE HISTORY OF PRESENT ILLNESS GENERAL: - 64-YEAR-OLD MALE IN FOR CHRONIC PAIN FOLLOW-UP. HE RATES HIS PAIN CURRENTLY AT AN 8 OUT OF 10 AND DESCRIBES IT BURNING AND THROBBING. HE FEELS MEDICATIONS ARE HELPFUL AND DENIES MED SIDE EFFECTS AT THIS TIME. FALL RISK SCREENING: SCREENING :NO FALLS REPORTED IN THE LAST YEAR PAIN SCREENING: PATIENT HAS A COMPLAINT OF ACUTE OR CHRONIC PAIN :YES LOCATION OF PAIN:LOW BACK, FEET INTENSITY OF PAIN (SCALE OF 1 TO 10):5 WHAT DOES YOUR PAIN FEEL LIKE:ACHING, BURNING, CONTINOUS, SHARP, STABBING, SORE, SHOOTING DURATION:PERIODIC PAIN IS INCREASED BY:OTHERS GETTING UP IN MORNING PAIN IS DECREASED BY:USE OF PAIN MEDICATIONS TODAY AT PHYSICAL APPT PT STATES HIS PAIN IS A 3. NURSING NOTE: -. PAIN CENTER INTAKE QUESTIONS: DO YOU HAVE A HISTORY OF MRSA? :NO DO YOU TAKE A BLOOD THINNERS? :NO DO YOU HAVE ANY BLEEDING DISORDERS? :NO ANY NEW NUMBNESS OR WEAKNESS IN YOUR LEGS OR ARMS? :NO ANY PACEMAKER,DEFIBRILLATOR, OR DORSAL COLUMN STIMULATOR? :NO DO YOU HAVE ANY RASHES OR OPEN SORES? :NO ARE YOU ALLERGIC TO IV DYE? :NO ARE YOU DIABETIC? :NO ANY NEW PROBLEMS WITH YOUR MEDICATIONS? :NO HAVE YOU RECEIVED A VACCINE IN THE PAST 30 DAYS? :NO DO YOU PLAN TO RECEIVE A VACCINE IN THE NEXT 21 DAYS? :NO DO YOU NEED ANY PRESCRIPTION? :NO DO YOU TAKE ANY IMMUNOSUPPRESSIVE MEDICATIONS? :NO CURRENT MEDICATIONS TAKING MELOXICAM 15 MG TABLET ORALLY DAILY TAKING LISINOPRIL 20 MG TABLET ORALLY DAILY TAKING ROSUVASTATIN CALCIUM 20 MG TABLET ORALLY DAILY TAKING ASPIR-81 DAILY TAKING GABAPENTIN 300 MG CAPSULE 1 CAPSULE ORALLY THREE TIMES DAILY START DAY 4 TAKING OXYCODONE-ACETAMINOPHEN 5-325 MG TABLET 1 TABLET NEEDED ORALLY THREE TIMES DAILY NEEDED NOT-TAKING CYCLOBENZAPRINE HCL 10 MG TABLET ORALLY TID NOT-TAKING LYRICA 100 MG CAPSULE 1 CAPSULE ORALLY ONCE A DAY X 1 WEEK THEN EVERY OTHER DAY NOT-TAKING GABAPENTIN 100 MG CAPSULE 1 CAPSULE ORALLY THREE TIMES DAILY X 3 DAYS NOT-TAKING FLEXERIL MEDICATION LIST REVIEWED AND RECONCILED WITH THE PATIENT PAST MEDICAL HISTORY HYPERTENSION COLON CANCER HIGH CHOLESTEROL ARTHRITIS DIVERTICULITIS SORTIC ANEURYSEM ANEMIA SEIZURE- 3 WEEKS AGO- ADMITTED TO HOSPITAL AFTER ([facility] UNKNOWN REASON- PT QUESTIONING RELATED TO RED BULL HE HAD DRANK 3 THE DAY OF SEIZURE- WILL BE SEEING DR STYLES 09/13/2019 CHRONIC BACK/NECK PAIN LEFT HIP PAIN ALLERGIES N.K.D.A. SURGICAL HISTORY COLON SURGERY 2016 HERNIA SURGERY WHEN TEENAGER EYE SURGERY A CHILD FAMILY HISTORY FATHER: MOTHER: , DIAGNOSED WITH HYPERTENSION SIBLINGS: MOTHER OF LUNG CANCERBROTHER OF BONE/BRAIN CANCERSISTER MURDRED. SOCIAL HISTORY GENERAL: TOBACCO USE ARE YOU A:NONSMOKER ADDITIONAL FINDINGS: TOBACCO USERCHEWS FINE CUT TOBACCO SMOKING CESSATION INFORMATION GIVEN07/21/2019 LATEX QUESTIONNAIRE LATEX ALLERGY : HAVE YOU EVER DEVELOPED ANY TYPE OF REACTION AFTER HANDLING LATEX PRODUCTS SUCH RUBBER GLOVES, CONDOMS, DIAPHRAGMS, BALLOONS, SOCKS, OR UNDERWEAR?NO LATEX ALLERGY : HAVE YOU EVER DEVELOPED ANY TYPE OF REACTION DURING OR AFTER DENTAL APPOINTMENT, VAGINAL/RECTAL EXAMINATION, SURGICAL PROCEDURE, OR ANY OTHER EXPOSURE?NO LATEX RISK : HAVE YOU EVER HAD ANY DIFFICULTY BREATHING OR HIVES AFTER EATING OR HANDLING ANY FRUITS, OR VEGETABLES; SUCH KIWI, BANANAS, STONE FRUITS, OR CHESTNUTSNO LATEX RISK : DO YOU HAVE A PREVIOUS PERSONAL HISTORY OF MORE THAN NINE SURGERIES, SPINA BIFIDA, OR REPEATED CATHERIZATIONS? NO LATEX RISK : ARE YOU FREQUENTLY EXPOSED TO LATEX PRODUCTS IN YOUR OCCUPATION?NO DATE ASKED : 10/20/2019 ALCOHOL SCREENING DID YOU HAVE A DRINK CONTAINING ALCOHOL IN THE PAST YEAR?NO POINTS0 INTERPRETATIONNEGATIVE RECREATIONAL DRUG USE DRUG USE?NO PT DECLINES ANY PAST OR PRESENT HISTORY CAFFEINE CAFFEINE USE?YES ONE CUP IN THE MORNING, 1 CUP DAILY YAZIDI YAZIDI CHRISTIAN IS HOW PT WAS RAISED , BUT STATES NO PREFERENCE LANGUAGE LANGUAGES SPOKEN:HUNGARIAN EDUCATION LEVEL OF EDUCATION:NOT FINISHED COLLEGE DOMESTIC VIOLENCE DO YOU FEEL SAFE IN YOUR ENVIRONMENT?YES OCCUPATION: RETIRED. DIET: REGULAR. EXERCISE: WALKS. MARITAL STATUS: SINGLE. OTHERS AT HOME: GRANDCHILD AND SON AND SIGNIFICANT OTHER 4 DOGS AND 3 CATS. NEW PATIENT PAIN DIARY TODAY'S VISITNOTES PATIENT DESCRIBES PAIN :BURNING, HAVE IT ALL THE TIME, STABBING, OTHER INTENSE FROM 0-10, WHAT LEVEL IS YOUR PAIN TODAY?10 PAIN CLINIC PFS, CLERGY, PUBLIC HEALTH REFERRALS PFS REFERRAL NEEDED?NO CLERGY REFERRAL NEEDED?NO PUBLIC HEALTH REFERRAL NEEDED?NO WAS THE PROVIDER NOTIFIED OF ANY PERTINENT INFO?YES HAS THE PATIENT BEEN EDUCATED REGARDING HIS/HER PLAN OF CARE?YES HAS THE PATIENT BEEN EDUCATED REGARDING PAIN, THE RISK FOR PAIN, THE IMPORTANCE OF EFFECTIVE PAIN MANAGEMENT, AND THE PAIN ASSESSMENT PROCESS?YES HOUSING: RENTS APARTMENT. ADVANCE DIRECTIVE ADVANCE DIRECTIVE DISCUSSED WITH PATIENT:YES REFUGIO RECINOS- [phone] IS HCP HOSPITALIZATION/MAJOR DIAGNOSTIC PROCEDURE SURGERIES AND DIVERTICULITIS HOSPITALIZED AFTER A SEIZURE 06/2019 REVIEW OF SYSTEMS CONSTITUTIONAL: ANY RECENT FEVER OR ILLNESS NO . CHILLS NO . GASTROENTEROLOGY: BOWEL INCONTINENCE NO . ANY NEW CHANGE IN BOWEL CONTROL? NO . ABDOMINAL PAIN NO . CONSTIPATION NO . GENITOURINARY: ANY NEW CHANGE IN BLADDER CONTROL? NO . URINARY INCONTINENCE NO . CARDIOLOGY: CHEST PRESSURE NO . CHEST PAIN NO . RESPIRATORY: COUGH NO . SHORTNESS OF BREATH NO . VITAL SIGNS WT 183.4 LBS, HT 57 IN, BMI 39.68 INDEX, BP 152/91 MM HG, HR 81 /MIN, RR 18 /MIN, TEMP 97.9 F, OXYGEN SAT % 99%, SAFE IN ENV? (Y/N) YES, NA INITIALS AW 0931, REVIEWED BY: KG. EXAMINATION GENERAL EXAMINATION: GENERALNO ACUTE DISTRESS, WELL NOURISHED AND HYDRATED. PSYCHAPPROPRIATE MOOD AND AFFECT . LUNGS:CLEAR TO AUSCULTATION BILATERALLY, NO WHEEZES, RHONCHI, RALES. HEART:NO MURMURS, REGULAR RATE AND RHYTHM. BACK:DENIES POINT TENDERNESS ALONG LUMBAR SPINE, SURROUNDING SKIN SHOWS NO ERYTHEMA, ECCHYMOSIS, INCREASED WARMTH, AND/OR SKIN ERUPTIONS NOTED. PATIENT DOES ENDORSE INCREASED PAIN WITH FACET LOADING . ASSESSMENTS SPONDYLOSIS WITHOUT MYELOPATHY OR RADICULOPATHY, LUMBOSACRAL REGION - M47.817 TREATMENT SPONDYLOSIS WITHOUT MYELOPATHY OR RADICULOPATHY, LUMBOSACRAL REGION NOTES: BILATERAL THERAPEUTIC FACET BLOCK L4-L5 L5-S1. CLINICAL NOTES: 64-YEAR-OLD MALE IN FOR CHRONIC PAIN FOLLOW-UP. GIVEN PRESENTING SYMPTOMS AND RESULTS OF PHYSICAL EXAMINATION RECOMMENDED BILATERAL THERAPEUTIC FACET BLOCK L4-L5 L5-S1 WITH POSTPROCEDURAL FOLLOW-UP. PATIENT HAS EXPRESSED UNDERSTANDING OF AND WAS IN AGREEMENT WITH TREATMENT PLAN. GIVEN TIME TO ASK QUESTIONS AND EXPRESS CONCERNS. , ISTOP REGISTRY REVIEWED AND DEMONSTRATES COMPLLIANCE. (REF # [id number] ) BRINGS IN MEDICATIONS WHICH IS APPROPRIATE FOR WHAT WAS DISPENSED. RECENT URINE TOXICOLOGY REVIEWED. NO UNAUTHORIZED MEDICATIONS. NO ILLICIT SUBSTANCES AND PRESCRIBED MEDICATIONS WERE PRESENT. RISK AND BENEFITS OF PROCEDURE DISCUSSED WITH PATIENT. OTHERS NOTES: FACET JOINT INJECTION MATERIAL WAS PRINTED. PROCEDURE CODES FA211 ESTABILISHED PATIENT [facility] CHARGE DISPOSITION & COMMUNICATION FOLLOW UP POST PROCEDURE (REASON: BILATERAL THERAPEUTIC FACET BLOCK L4-L5 L5-S1) ELECTRONICALLY SIGNED BY JASPREET RIVERA ON 10/24/2019 AT 08:39 AM EDT DISCLAIMER : THIS IS A VISIT SUMMARY EXTRACTED FROM THE [facility] CHART. IT IS NOT A COPY OF THE [facility] PROGRESS NOTE. MIGUE
== END ==
LOC: M PAIN 09:30
PROVIDERS: ATTEND Family Medicine
DX: M47.817 Spondylosis without myelopathy or radiculopathy, lumbosacral region (principal)

== ENCOUNTER 2019-10-30 11:18 | Inpatient (IN) | payer OTHER ==
[~2019-10-30] VITALS: Ht 170.2 cm; Wt 81.8 kg
[2019-10-30] MEDS ORDERED: OXYC1TAB23 PO (11:28)
[2019-10-30] MEDS ORDERED: IPRATROPIUM 0.5MG/ALBUTEROL 2.5MG INH SOL UD 3ML (DUONEB) NEB ONE (11:45)
[2019-10-30] MEDS ORDERED: ALBUTEROL SULFATE 2.5 MG/0.5 ML INH NEB SOLN INH ONE (11:45)
[2019-10-30 11:52] LABS: BASO % 0.1 % (0.0-1.0); HEMATOCRIT 43.8 % (42.0-52.0); HEMOGLOBIN 13.7 g/dl (13.5-17.5); LYMPH # 0.6 10^3/uL (1.5-5.0); MEAN CORPUSCULAR HEMOGLOBIN 30.2 pg (27.0-33.0); MEAN CORPUSCULAR HGB CONC 31.3 g/dl (32.0-36.5); MEAN CORPUSCULAR VOLUME 96.5 fl (80.0-96.0); MONO # 1.9 10^3/uL (0.0-0.8); MONO % 10.7 % (0.0-5.0); NEUTROPHILS # 15.5 10^3/uL (1.5-8.5); NEUTROPHILS % 85.6 % (36.0-66.0); PLATELET COUNT, AUTOMATED 346 10^3/uL (150-450); RED BLOOD COUNT 4.54 10^6/uL (4.30-6.10); WHITE BLOOD COUNT 18.1 10^3/uL (4.0-10.0)
[2019-10-30 12:17] LABS: ALBUMIN 4.3 GM/DL (3.2-5.2); BILIRUBIN,DIRECT 0.1 MG/DL (0.0-0.2); BILIRUBIN,TOTAL 0.4 MG/DL (0.2-1.0); CALCIUM LEVEL 9.1 MG/DL (8.8-10.2); CREATININE FOR GFR 3.15 MG/DL (0.70-1.30); GLOMERULAR FILTRATION RATE 21.3 (>49); POTASSIUM SERUM 5.9 MEQ/L (3.5-5.1); TOTAL PROTEIN 8.1 GM/DL (6.4-8.2)
[2019-10-30] MEDS ORDERED: NS 1,000 ML IV ONE ×2 (13:15→16:00)
--- NOTE | 2019-10-30 13:30 | REP ---
Single view chest: 10/30/2019. Indication: Dyspnea. Cough. Comparison: 06/27/2019. Findings: The lungs are clear. There is no pleural effusion or pneumothorax. The cardiac silhouette is not enlarged. Impression: Clear lungs. Electronically Signed by Jason Mccray DO 10/30/2019 01:21 P
--- NOTE | 2019-10-30 13:37 | REP ---
CT brain: 10/30/2019. Indication: Seizure. Technique: Unenhanced axial CT images of the brain were obtained with coronal reconstructions provided. Comparison: 06/27/2019. Findings: There is no acute intracranial hemorrhage, acute cortical infarction, mass effect or hydrocephalous. There is no acute calvarial fracture or significant fluid within the paranasal sinuses/mastoid air cells. Impression: No acute intracranial process or definite seizure focus. Electronically Signed by Jason Mccray DO 10/30/2019 01:28 P
--- NOTE | 2019-10-30 13:53 | REP ---
CT abdomen and pelvis: 10/30/2019. Indication: Renal failure. Technique: Unenhanced axial CT images of the abdomen and pelvis were performed with coronal and sagittal reconstructions provided. Comparison: 05/13/2018. Findings: There are no focal abnormalities of the spleen, liver, pancreas, gallbladder or kidneys detected. Aortoiliac atherosclerotic disease is present. No lymphadenopathy is present. There are no abnormal fluid collections. There is no free intraperitoneal air. The visualized lungs are clear. Distal colonic diverticulosis is present without evidence of diverticulitis. Impression: No acute abnormalities of the abdomen/pelvis soft tissues. Electronically Signed by Jason Mccray DO 10/30/2019 01:44 P
[2019-10-30] MEDS ORDERED: levETIRAcetam INJection 500 MG in D5W MINI-BAG PLUS 100 ML IV ONE (15:15)
[2019-10-30] MEDS ORDERED: NALOXONE 2MG/2ML SYRINGE (J2310 PER 1MG) As Ordered ONE (16:02)
[2019-10-30] MEDS ORDERED: NALOXONE 2MG/2ML SYRINGE (J2310 PER 1MG) IV STA ×2 (16:02→18:35)
--- NOTE | 2019-10-30 16:12 | ECGEPIP ---
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
--- NOTE | 2019-10-30 16:20 | HPEPDOC ---
[facility] Medical History & Physical Date of Admission Oct 30, 2019 Date of Service: Oct 30, 2019 Other Provider Orlando Muir Attending Physician: ALFRED MISHRA MD History and Physical TIME OF SERVICE: 4:30 PM CHIEF COMPLAINT: Altered mental status HISTORY OF PRESENT ILLNESS: This is a 64-year-old gentleman was last admitted on June 27 for evaluation of new onset seizures; during that admission, he had an EEG which showed mild encephalopathy without epileptiform discharges; the patient was discharged with instructions not to drive heavy machinery and follow-up with neurology. Based on the discharge note antiseizure medications were not recommended by the neurolog ist. Today, he was brought into the ER after being found unresponsive. The patient reports the last thing he remembers is sitting on the couch watching TV and chewing tobacco. He denies recently having any headaches, runny nose, cough, shortness of breath, fever, chills, nausea, vomiting, abdominal pain, pain with urination, or change in his chronic back pain. He also denies having any problems sleeping. Per ER notes, when EMS arrived, they noted that the patient was altered and vomiting. They gave him 1 mg of Narcan 4 mg of Zofran, thereafter, he became more alert. On arrival in the ER, he received 2 additional doses of 2 mg of Narcan. ABG showed a pH of 7.22 with a PO2 of 58 and a PCO2 also 58 therefore, he was started on BiPAP. Dr. Perez discuss the possibility that the patient had a seizure with the neurologist conference center coordinator who recommended starting Keppra 500 mg twice a day. REVIEW OF SYSTEMS: 12 point review of systems negative except as listed in HPI PAST MEDICAL/ SURGICAL HISTORY: He denies having a prior history of seizures. Chronic HTN Chronic neck pain, Dyslipidemia. AAA Status post partial colectomy for resection of a precancerous colon lesion SOCIAL HISTORY: He chews tobacco. He doesn't drink alcohol. He lives with his FAMILY HISTORY: Pepcid cancer. He denies a family history of seizure disorder ALLERGIES: Please see below. HOME MEDICATIONS: Please see below. PHYSICAL EXAMINATION: Vital Signs Date Time Temp Pulse Resp B/P (MAP) Pulse Ox O2 Delivery O2 Flow Rate FiO2 10/30/19 11:20 115 26 83 Room Air 10/30/19 11:53 92/65 (74) 10/30/19 12:23 95.4 10/30/19 16:00 35 GEN: well-nourished / well developed/ NAD INTEGUMENT: not flushed/ not jaundice HEENT: BiPAP mask in place/ sclera anicteric CVS: RRR/NMRG/ radial pulses intact LUNGS: lungs are clear to auscultation bilaterally/ BiPAP settings are 12/6 FiO2 35% MSK/EXTREMITIES: range of motion intact in all 4 extremities NEURO: CN 2-12 are grossly intact / speech is not dysarthric / strength is 5/5 PSYCH: alert and oriented to person place and time/ able to understand and follow all commands LABORATORY DATA: Immature Granulocyte % (Auto) 0.6, Neutrophils (%) (Auto) 85.6H, Lymphocytes (%) (Auto) 3.0L, Monocytes (%) (Auto) 10.7H, Eosinophils (%) (Auto) 0.0, Basophils (%) (Auto) 0.1, Neutrophils # (Auto) 15.5H, Lymphocytes # (Auto) 0.6L, Monocytes # (Auto) 1.9H, Eosinophils # (Auto) 0.0, Basophils # (Auto) 0.0, Nucleated Red Blood Cells % (auto) 0.0, POC Troponin I (Misc) 0.02, Anion Gap 14, Glomerular Filtration Rate 21.3L, Lactic Acid Level 6.1*H, Calcium Level 9.1, Total Bilirubin 0.4, Direct Bilirubin 0.1, Aspartate Amino Transf (AST/SGOT) 34, A lanine Aminotransferase (ALT/SGPT) 45, Alkaline Phosphatase 86, Total Protein 8.1, Albumin 4.3, Albumin/Globulin Ratio 1.1 10/30/19 15:57: POC pH (Misc Panel) 7.220*L, POC Base Excess (Misc Panel) -4.0L, POC Saturated Percent O2 (Misc) 83L, POC pO2 (Misc Panel) 58.0L, POC pCO2 (Misc Panel) 58.2H, POC HCO3 (Misc Panel) 23.9, POC Total CO2 (Misc Panel) 26.0 IMAGING: Chest xray "Impression: Clear lungs." CT head "Impression: No acute intracranial process or definite seizure focus." CT abdomen/pelvis "Impression: No acute abnormalities of the abdomen/pelvis soft tissues." MICROBIOLOGY: 10/30/19 Blood Culture, Received Pending 10/30/19 Blood Culture, Received Pending ASSESSMENT: Mr. Mckeon is a 64-year-old male with a history of HTN, chronic neck pain, dyslipidemia & AAA who is admitted for evaluation of transient encephalopathy, possibly due to opiate overdose versus recurrent seizure. PLAN: 1. Altered Mental Status / Encephalopathy Resolved with Narcan therefore for may be due to oversedation from opiates vs recurrent seizure CT of the head and neuro exam were unrevealing Plan: admit to ICU / frequent neurochecks / its to late to order prolactin to r/o seizure / per the Neurologist conference center coordinator recommended Kepra 500mg BID / f/u EEG / hold [place] (home med for chronic pain) & Narcan PRN for RR <10 2. Apneic episodes Likely 2/2 opiate overdose Per d/w his RN he has been having apneic episodes Plan: Pulm consult for Narcan 3. Hypoxemia possibly 2/2 aspiration pneumonitis Per d/w its suspected that the patient aspirated. He has SIRS, but I don't think he is truly septic as there are other reasons for SIRS and lactic acidosis Plan: f/u repeat ABG prior to c/w BIPAP + possible Pulm consult / f/u CT chest to confirm consolidation prior to starting abx ( ampiciillin-sulbactum for aspiration PNA) 4. SIRS vs Sepsis Possibly reactive due to seizure versus pneumonia Plan: Monitor vitals,/follow-up blood cultures, UA and chest xray 5. Lactic acidosis Possibly secondary to seizure versus infection Plan: IV fluids/trend lactic acid 6. Acute Renal Failure on CKD 3 Cause of KAMLA is unclear at this time Creatinine is 3.15, up from his baseline of 1.3 Plan: f/u Is/Os / IVF / f/u UA, CK , drug screen & ulytes for FENa or FEUrea / renal US 7. Hyperkalemia Likely 2/2 KAMLA Plan: Telemetry / f/u repeat BMP this afternoon 8. Chronic HTN Currently BP is low Plan: start amlodipine if BP is high tomorrow 9. Chronic neck pain Plan: Voltaren patch DVT PROPHYLAXIS: Lovenox (dose adjusted for renal impairment) DISPOSITION: Home after more than two midnight's stay LATE ENTRY 1923 Repeat K is elevated. ordered Ca gluconate and dextrose. I will also order Kayexalate and repeat K tonight at 11PM. Home Medications Scheduled Aspirin (Aspirin EC) 81 Mg Tablet.dr, 81 MG PO DAILY Scheduled PRN Oxycodone HCl/Acetaminophen (Oxycodone-Acetaminophen 5-325) 1 Each Tablet, 1 TAB PO TIDP PRN for PAIN Miscellaneous Medications [patient comment] Unable to interview patient, list obtained from external med history. Allergies Coded Allergies: No Known Allergies (Verified , 03/01/19) ALFRED MISHRA MD Oct 30, 2019 16:20
[2019-10-30] MEDS ORDERED: MAALOX 30 ML SUSP *UDC PO PRN (16:30)
[2019-10-30] MEDS ORDERED: MOM 30ML SUSPENSION UDC PO PRN (16:30)
[2019-10-30] MEDS ORDERED: ACETAMINOPHEN TAB 650MG DOSE (2X325MG) PO PRN (16:30)
[2019-10-30] MEDS ORDERED: patient comment (16:35)
[2019-10-30 17:56] LABS: ABG BASE EXCESS -6.5 (-2.0-2.0); ABG HCO3 20.7 MEQ/L (22.0-26.0); ABG PARTIAL PRESSURE CO2 48.1 mmHg (35.0-45.0); ABG PARTIAL PRESSURE O2 114.4 mmHg (75.0-100.0); ABG STANDARD HCO3 19.2 MEQ/L (22.0-26.0); ABG TOTAL CO2 22.2 MEQ/L (23.0-31.0); ABG pH (ARTERIAL) 7.252 UNITS (7.350-7.450)
[2019-10-30] MEDS ORDERED: NS 1,000 ML IV SCH (18:00)
[2019-10-30] MEDS ORDERED: NALOXONE INJ 0.4MG/1ML VIAL (J2310 PER 1MG) IV PRN (18:30)
[2019-10-30 19:00] LABS: CALCIUM LEVEL 7.3 MG/DL (8.8-10.2); CREATININE FOR GFR 2.16 MG/DL (0.70-1.30); GLOMERULAR FILTRATION RATE 32.9 (>49); POTASSIUM SERUM 6.2 MEQ/L (3.5-5.1)
[2019-10-30] MEDS ORDERED: ETOMIDATE INJ 20MG/10ML VIAL As Ordered ONE (19:07)
[2019-10-30] MEDS ORDERED: ROCURONIUM BROMIDE 50 MG/5 ML VIAL As Ordered ONE (19:08)
[2019-10-30] MEDS ORDERED: CALCIUM GLUCONATE 1,000 MG in D5W MINI-BAG PLUS 100 ML IV ONE (19:30)
[2019-10-30 20:00] VITALS: BP 139/70
[2019-10-30] MEDS ORDERED: SODIUM BICARBONATE 150 MEQ in D5W 1,000 ML IV SCH (20:00)
[2019-10-30] MEDS: NALOXONE HCL INJ 4 MG in D5W 496 ML IV SCH (20:59)
[2019-10-30] MEDS ORDERED: DICLOFENAC EPOLAMINE 1.3 % PATCH TOP SCH (21:00)
[2019-10-30] MEDS ORDERED: SOD POLYSTYRENE SULFONATE SUSP 15 GM/60 ML UD PO ONE (21:00)
[2019-10-30 22:25] LABS: ABG BASE EXCESS -3.9 (-2.0-2.0); ABG HCO3 21.4 MEQ/L (22.0-26.0); ABG O2 SATURATION 92.5 % (95.0-99.0); ABG PARTIAL PRESSURE CO2 39.9 mmHg (35.0-45.0); ABG PARTIAL PRESSURE O2 64.7 mmHg (75.0-100.0); ABG STANDARD HCO3 21.1 MEQ/L (22.0-26.0); ABG TOTAL CO2 22.6 MEQ/L (23.0-31.0); ABG pH (ARTERIAL) 7.347 UNITS (7.350-7.450)
[2019-10-30 22:56] LABS: ALBUMIN 3.3 GM/DL (3.2-5.2); BILIRUBIN,TOTAL 0.4 MG/DL (0.2-1.0); CALCIUM LEVEL 8.1 MG/DL (8.8-10.2); CREATININE FOR GFR 1.92 MG/DL (0.70-1.30); GLOMERULAR FILTRATION RATE 37.7 (>49); POTASSIUM SERUM 4.6 MEQ/L (3.5-5.1); TOTAL PROTEIN 6.1 GM/DL (6.4-8.2)
[2019-10-30] MEDS ORDERED: PILL CUTTER 1 EACH XX PRN (23:45)
[2019-10-30] MEDS: CETIRIZINE (ZyrTEC) 10 MG TAB PO SCH (23:50)
[2019-10-31] VITALS (15 sets, daily range): BP systolic 137–174; BP diastolic 70–100
[2019-10-31] MEDS: NALOXONE HCL INJ 4 MG in D5W 496 ML IV SCH ×5 (01:36→14:00)
[2019-10-31] MEDS: levETIRAcetam 250MG TABLET (KEPPRA) PO SCH ×2 (03:06→15:51)
[2019-10-31] MEDS: D5W/0.45% SODIUM CHLORIDE 1,000 ML IV SCH ×3 (03:27→23:04)
[2019-10-31 04:13] LABS: AMPHETAMINES LEVEL URINE NEGATIVE (NEGATIVE); BARBITURATES URINE NEGATIVE (NEGATIVE); BENZODIAZEPINES URINE NEGATIVE (NEGATIVE); CANNABINOIDS URINE NEGATIVE (NEGATIVE); COCAINE METABOLITE URINE NEGATIVE (NEGATIVE); METHADONE URINE POSITIVE (NEGATIVE); OPIATES URINE NEGATIVE (NEGATIVE); PHENCYCLIDINE URINE NEGATIVE (NEGATIVE)
[2019-10-31 04:20] LABS: SODIUM,RANDOM URINE 27 MEQ/L; UREA NITROGEN RANDOM URINE 749 MG/DL
[2019-10-31 04:43] LABS: HEMATOCRIT 32.1 % (42.0-52.0); MEAN CORPUSCULAR HEMOGLOBIN 30.1 pg (27.0-33.0); MEAN CORPUSCULAR VOLUME 91.2 fl (80.0-96.0); RED BLOOD COUNT 3.52 10^6/uL (4.30-6.10); WHITE BLOOD COUNT 11.8 10^3/uL (4.0-10.0)
[2019-10-31 04:47] LABS: HEMOGLOBIN 10.6 g/dl (13.5-17.5); PLATELET COUNT, AUTOMATED 211 10^3/uL (150-450)
[2019-10-31 05:04] LABS: ALBUMIN 3.1 GM/DL (3.2-5.2); BILIRUBIN,TOTAL 0.3 MG/DL (0.2-1.0); CALCIUM LEVEL 7.8 MG/DL (8.8-10.2); CREATININE FOR GFR 1.52 MG/DL (0.70-1.30); GLOMERULAR FILTRATION RATE 49.4 (>49); MAGNESIUM LEVEL 1.8 MG/DL (1.8-2.4); POTASSIUM SERUM 3.7 MEQ/L (3.5-5.1); TOTAL PROTEIN 5.9 GM/DL (6.4-8.2)
--- NOTE | 2019-10-31 06:57 | CCN ---
DATE: 10/30/2019 CRITICAL CARE TIME: 1 hour and 29 minutes, this excludes all procedures. I was initially called by the nursing staff for concerns regarding the critical illness of this patient and then was consulted by Dr. Nielson. Saleem is a 64-year-old male apparently found cold, barely responsive with a low respiratory rate by the EMS staff who brought him in. He was found to have less responsiveness and very shallow breathing. Narcan caused him to arouse. He vomited what looked like chewing tobacco. Initially, he had hypercarbic hypoxic respiratory failure that did not seem to get better. He was placed on BiPAP and had recurrent bouts requiring Narcan. Apparently, his respiratory rate fell to 6 again and then was recently given Narcan prior to his transfer up to the intensive care unit (ICU). On my arrival to the ICU, the patient is awake and talking. He cannot recall what happened as to why he was found in the state. He states this never happened before. He states he has never required mechanical ventilation in the past. The patient currently denies any medical history, but I have obtained some from the chart. He has been taking Naproxen. He was found to be hyperkalemic. There was not much management for the hyperkalemia repeated and potassium was actually higher. He is in renal failure. He has never had difficulty he states with renal impairment previously. I asked if he had any episodes of dehydration or vomiting at home. He says that he simply does not drink enough. His history is extremely poor and I am not able to identify a direct cause of his renal failure. PAST MEDICAL HISTORY: 1. Hypertension. 2. Hyperlipidemia. 3. History of abdominal aortic aneurysm. 4. History of partial colectomy. 5. History of apancreatic lesion. 6. Chronic neck, back and foot pain. Most of his obtained from the chart as the patient denied medical history. SOCIAL HISTORY: Chews tobacco. Denies smoking. No illicit drug use. No alcohol use. FAMILY HISTORY: Unobtainable. REVIEW OF SYSTEMS: Unobtainable. PHYSICAL EXAMINATION: Temperature is 97.1, pulse is 82, respiratory rate currently 11, blood pressure is 144/90, mean arterial pressure of 108, oxygen saturations 97% on room air. General: The patient is awake, alert, carrying on a conversation and answering questions fairly quickly, although maybe not appropriately. He does not appear lethargic at this point in time, but he just received a dose of Narcan. HEENT: Sclerae clear and anicteric. Pupils equal, reactive to light. Mucous membranes are moist, without lesions. There are remnants of chewing tobacco in his mouth. Dentition in fair repair, a few missing teeth. Neck is supple. No tracheal deviation or mass. Lymphs: No cervical, supraclavicular or axillary adenopathy. Cardiac: Regular. S1, S2. Without audible murmur, rub or gallop. No elevated jugular venous pulse (JVP). No systemic edema. Pulmonary: Clear to auscultation. Without rales, rhonchi or wheezes. No dullness to percussion. No accessory muscle use. Abdomen: Soft, nontender, nondistended. No hepatosplenomegaly. No masses. Extremities: No cyanosis, clubbing or edema. Skin: No rash, jaundice or bruising. A few superficial excoriations. No deep tissue injuries, fractures or joint effusions. Neurologic: No unilateral weakness. No tremor. Muscle strength is normal bilateral lower and upper extremities. There is no evidence of myoclonus. Deep tendon reflexes (DTRs) are present and normal at patella and brachial radialis. LABORATORY EVALUATION: Shows an elevated white blood cell count of 18.1, hemoglobin 13.7, hematocrit of 43.8 with a platelet count of 346, and 86% neutrophilia. Sodium is 141, potassium 5.9, chloride is 100, bicarb of 27, BUN of 26, creatinine of 3.15, and glucose was 123. This was rechecked and now the most recent laboratory evaluation from 1800 shows a sodium of 140, potassium 6.2, chloride elevated at 109, bicarb decreased at 19, anion gap is 12, BUN is up to 29, creatinine is 2.16, glucose is 99. Lactate went from 6.1 to 1.6. Calcium is down to 7.3. CK is at 330. Albumin is 4.3. AST, ALT and alkaline phosphatase, total bili from the 11:40 were normal. No urine toxicology was obtained. Blood cultures are pending. Our first arterial blood gas shows a pH of 7.22, pCO2 of 58 and pO2 of 50. A second arterial blood gas is slightly better at 1743 showing a pH of 7.25, pCO2 of 48 and pAO2 of 114. INR 111. Chest x-ray is clear without any abnormalities. No mass lesion or infiltrate. Head CT and abdominal CT, reported by radiologist that these are normal. Electrocardiogram (EKG) from 1133 shows sinus tachycardia, Q-waves in the anterior leads and no hyperacute T-waves. IMPRESSION: 1. Respiratory failure secondary to narcotic overdose most likely, responds to Narcan. As long as he is getting Narcan, he is awake. I think his arterial blood gas will improve on its own. I would not perform BiPAP at this point in time as he has been vomiting in between doses of Narcan and has a high risk of aspiration. If he is able to maintain his wakefulness with the use of Narcan, will intubate for airway protection. At this point in time, he is requiring so much frequent Narcan use, will place him on a Narcan drip and titrate for respiratory rate between 12 and 18, along with close monitoring of his mental status. 2. Hyperkalemia. Likely a combination of acidosis and renal impairment. I have given calcium gluconate. I have added IV fluids in the form of D5W with 3 amps of bicarb. I do believe the patient is dehydrated. He has no evidence of volume overload. At this point in time, will monitor potassium closely. If it continues to increase, will consider Kayexalate. 3. Renal failure. Minimal improvement with minimal improvement of acidosis. Urine output has not been measured. Will obtain urine toxicology and place a [place]. 4. The patient remains full code. What is not clear is what transpired and I do not believe the patient is able to make his own decisions at this point in time. 5. Leukocytosis. Likely from acute event. No source of infection has been found; however, blood cultures are pending. Will have low threshold for initiating antibiotics.
--- NOTE | 2019-10-31 07:18 | REPVR ---
PROCEDURE INFORMATION: Exam: CT Chest Without Contrast Exam date and time: 10/31/2019 6:47 AM Age: 64 years old Clinical indication: Chest pain; Additional info: Hypoxia and vomiting R/O aspiration pnemonia TECHNIQUE: Imaging protocol: Computed tomography of the chest without contrast. 3D rendering: MIP and/or 3D reconstructed images were created by the technologist. Radiation optimization: All CT scans at this facility use at least one of these dose optimization techniques: automated exposure control; mA and/or kV adjustment per patient size (includes targeted exams where dose is matched to clinical indication); or iterative reconstruction. COMPARISON: [place] PORTABLE CHEST X-RAY 10/30/2019 11:51 AM FINDINGS: Lungs: See "Pleural space" finding. Pleural space: There is a 4 mm right middle lobe pleural base nodule on axial image 50. Bibasilar, right more than left atelectatic changes seen. Heart: There is mild to moderate coronary vascular calcifications. Aorta: There is severe abdominal aortic and mild thoracic aortic mural calcifications. Lymph nodes: Unremarkable. No enlarged lymph nodes. Liver: There is mild periportal edema. The gallbladder is distended containing layering slightly dense material. Bones/joints: Unremarkable. No acute fracture. Soft tissues: Unremarkable. IMPRESSION: 1. Bibasilar, right more than left atelectatic lung changes. Early underlying infiltrates cannot be completely excluded. 2. 4 mm right middle lobe pleural base lung nodule. - For patients at low risk (minimal or absent history of smoking and of other known risk factors), no routine follow-up is indicated. - For patients at high risk (history of smoking or of other known risk factors), consider optional CT at 12 months. (Sandi et al., Fleischner Society, 2017). 3. Layering slightly dense material in the gallbladder possibly sludge. 4. Nonspecific periportal edema could be secondary to over hydration or due to hepatobiliary pathology. Correlate with clinical history and LFTs. Electronically signed by: David Puga On 10/31/2019 07:18:01 AM
[2019-10-31] MEDS: PANTOPRAZOLE 40MG VIAL (C9113 PER 1) IV SCH (08:55)
[2019-10-31] MEDS ORDERED: ENOXAPARIN 30MG/0.3ML SYRINGE (J1650 PER 10MG) SC SCH (09:00)
[2019-10-31] MEDS ORDERED: NALOXONE HCL INJ 4 MG in D5W 496 ML IV SCH (09:15)
--- NOTE | 2019-10-31 10:19 | CCN ---
DATE OF SERVICE: 10/31/2019 Mr. Mckeon is seen in the intensive care unit (ICU). He reports that overall he is feeling better, but still does feel somewhat nauseated. He has not had any fevers or chills. Denies any shortness of breath or chest pain. Nursing notes that the patient is frequently falling asleep and does have periods of oxygen desaturation into the 80s during sleep. He is currently getting IV fluids. PHYSICAL EXAMINATION: Vitals: Temperature 99.1, pulse 79, respiratory rate 16, blood pressure 145/89, pulse oximetry 93% on 2 liters. General: The patient is alert and oriented times three. Mood and affect appropriate. He responds in complete sentences. HEENT: Head is normocephalic, atraumatic. Moist mucous membranes. Neck: Neck is supple. No cervical lymphadenopathy. No jugular venous distention (JVD). Chest: Clear to auscultation bilaterally. No wheezes, rales, rhonchi or crackles. Heart: Regular rate and rhythm. S1, S2. Abdomen: Positive bowel sounds, soft, nontender. No rebound or guarding. Extremities: No clubbing, cyanosis or edema. Skin: Skin is warm and dry. Neurologic: Nonfocal grossly. LABORATORY DATA: WBC 11.8, hemoglobin 10.6, hematocrit 32.1, and platelets 211. Sodium 136, potassium 3.7, chloride 102, carbon dioxide 28, BUN 21, creatinine 1.52, glucose 141, calcium 7.8, magnesium 1.8, total bilirubin 0.3, AST 29, ALT 30, alkaline phosphatase 59, total protein 5.9, albumin 3.1. Urine toxicology was positive for methadone, negative for all other substances tested. Microbiology: Blood cultures pending x3. ASSESSMENT/PLAN: 1. Respiratory failure secondary to narcotics overdose. The patient is getting a Narcan drip. His urine toxicology was positive for methadone, however, he did relay yesterday that he also had been using hydrocodone, however, this tox was not positive for that. Will continue to titrate the Narcan. 2. Renal failure. The patient's creatinine is improving with hydration. Continue to monitor. His hyperkalemia has corrected as well. 3. Suspected obstructive sleep apnea. The patient does have oxygen desaturations with sleep. Suspect obstructive sleep apnea. The patient should have an outpatient workup when he is discharged from hospital.
--- NOTE | 2019-10-31 10:55 | IPNPDOC ---
Subjective Date Seen The patient was seen on 10/31/19. Subjective Chief Complaint/HPI Patient is awake, alert, oriented, in no distress, Narcan infusion in progress, patient and denies taking methadone on interview General: Denies: ROS Unobtainable, Chills, Night Sweats, Fatigue, Malaise, Normal Appetite, Other Symptoms Constitutional: Denies: Chills, Fever, Malaise, Night Sweats, Weakness, Fatigue, Weight Loss, Lethargy, Other Eyes: Denies: Pain, Vision change, Conjunctivae inflammation, Eyelid inflammation, Redness, Other ENT: Denies: Head Aches, Ear Pain, Dysphagia, Sinus Congestion, Post Nasal Drip, Sore Throat, Epistaxis, Other Symptoms Skin: Denies: Rash, Lesions, Jaundice, Bruising, Itching, Dry, Breakdown, Nail Changes, Other Pulmonary: Denies: Dyspnea, Cough, Pleuritic Chest Pain, Other Symptoms Cardiovascular: Denies: Chest Pain, Palpitations, Orthopnea, Paroxysmal Noc. Dyspnea, Edema, Lt Headedness, Other Symptoms Gastrointestinal: Denies: Nausea, Vomiting, Abdominal Pain, Diarrhea, Constipation, Melena, Hematochezia, Other Symptoms Genitourinary: Denies: Dysuria, Frequency, Incontinence, Hematuria, Retention, Other Symptoms Hematologic: Denies: Bruising, Bleeding Excessively, Petecchia, Purpura, Enlarged Lymph Nodes, Other Hematologic Endocrine: Denies: Polydipsia, Polyphagia, Polyuria, Heat Intolerance, Cold Intolerance, Other Endocrine Sx Musculoskeletal: Denies: Neck Pain, Back Pain, Shoulder Pain, Arm Pain, Hand Pain, Leg Pain, Foot Pain, Joint Pain, Muscle Pain, Spasms, Other Symptoms Neurological: Denies: Weakness, Numbness, Incoordination, Change in speech, Confusion, Seizures, Other Symptoms Psych: Denies: Mood Normal, Anxiety, Depression, Memory Issues, Thoughts of Self Harm, Anger, Thoughts of Harming Other, Other Psych Objective Physical Examination General Exam: Positive: Alert, Cooperative Eye Exam: Positive: PERRLA, Conjunctiva & lids normal ENT Exam: Positive: Atraumatic Neck Exam: Positive: Supple Chest Exam: Positive: Clear to auscultation, Normal air movement Heart Exam: Positive: Rate Normal, Normal S1, Normal S2 Abdomen Exam: Positive: Soft Extremity Exam: Positive: Normal pulses Skin Exam: Positive: Nl turgor and temperature Neuro Exam: Positive: Strength at 5/5 X4 ext, Sensation Intact, Cranial Nerves 3-12 NL Psych Exam: Positive: Mood NL, Oriented x 3 Assessment /Plan Problems (1) Acute respiratory failure Status: Acute Problem Text: Acute respiratory failure most likely secondary to narcotic overdose Patient received Narcan by EMS and in ED and has been started on Narcan drip in ICU Patient was found to decrease respiratory rate last night but improved after Narcan was adjusted Patient is denying taking methadone at the present time, but toxin screen was positive for methadone Patient oxygenation has also improved. His oxygen is 94% on room air at the present time Will continue ICU. ICU care Critical care consult and follow-up by Dr. simpson is appreciated . (2) Leukocytosis Status: Acute Problem Text: Leukocytosis was most likely secondary to acute phase reaction His repeat WBC count today is 11.8 and hemoglobin of 10.6 No source of infection is identified so far. Blood cultures pending If he becomes febrile or Cultures are positive, then we will start IV antibiotics (3) KAMLA (acute kidney injury) Status: Acute Problem Text: Acute kidney injury: Continue IV fluids Continue intake and output measurement His BUN was 21 and creatinine 1.5 to Was checked daily. Renal functions (4) Hyperkalemia Status: Acute Problem Text: Hyperkalemia on admission was secondary to acidosis or renal impairment He was given calcium gluconate and IV fluids with D5W with 3 A of bicarbonate and given yesterday His potassium at this point is 3.7 which is within normal range Continue monitoring of his electrolytes on daily basis Plan/VTE VTE Prophylaxis Ordered?: Yes VS, I&O, 24H, [facility] Vital Signs/I&O Vital Signs Date Time Temp Pulse Resp B/P (MAP) Pulse Ox O2 Delivery O2 Flow Rate FiO2 10/31/19 10:30 87 15 161/87 (111) 93 Room Air 10/31/19 08:00 1.0 10/31/19 08:00 99.1 10/30/19 16:00 35 I&O- Last 24 Hours up to 6 AM 10/31/19 05:59 Intake Total 4615 ml Output Total 1575 ml Balance 3040 ml Laboratory Data 24H LABS Laboratory Tests 2 10/30/19 11:40: Immature Granulocyte % (Auto) 0.6, Neutrophils (%) (Auto) 85.6H, Lymphocytes (%) (Auto) 3.0L, Monocytes (%) (Auto) 10.7H, Eosinophils (%) (Auto) 0.0, Basophils (%) (Auto) 0.1, Neutrophils # (Auto) 15.5H, Lymphocytes # (Auto) 0.6L, Monocytes # (Auto) 1.9H, Eosinophils # (Auto) 0.0, Basophils # (Auto) 0.0, Nucleated Red Blood Cells % (auto) 0.0, POC Troponin I (Misc) 0.02, Anion Gap 14, Glomerular Filtration Rate 21.3L, Lactic Acid Level 6.1*H, Calcium Level 9.1, Total Bilirubin 0.4, Direct Bilirubin 0.1, Aspartate Amino Transf (AST/SGOT) 34, Al anine Aminotransferase (ALT/SGPT) 45, Alkaline Phosphatase 86, Total Protein 8.1, Albumin 4.3, Albumin/Globulin Ratio 1.1 10/30/19 15:57: POC pH (Misc Panel) 7.220*L, POC Base Excess (Misc Panel) -4.0L, POC Saturated Percent O2 (Misc) 83L, POC pO2 (Misc Panel) 58.0L, POC pCO2 (Misc Panel) 58.2H, POC HCO3 (Misc Panel) 23.9, POC Total CO2 (Misc Panel) 26.0 10/30/19 17:40: Lactic Acid Level 1.6 10/30/19 17:43: Blood Gas Bicarbonate Standard 19.2L, Arterial Blood pH 7.252L, Arterial Blood Partial Pressure CO2 48.1H, Arterial Blood Partial Pressure O2 114.4H, Arterial Blood Total CO2 22.2L, Arterial Blood HCO3 20.7L, Arterial Blood Base Excess - 6.5L, Arterial Blood Oxygen Saturation 98.0 10/30/19 18:00: Anion Gap 12, Glomerular Filtration Rate 32.9L, Calcium Level 7.3#L, Total Creatine Kinase 330H 10/30/19 19:41: 10/30/19 22:04: Anion Gap 7L, Glomerular Filtration Rate 37.7L, Calcium Level 8.1L, Total Bilirubin 0.4, Aspartate Amino Transf (AST/SGOT) 29, Alanine Aminotransferase (ALT/SGPT) 33, Alkaline Phosphatase 63, Total Protein 6.1#L, Albumin 3.3#, Albumin/Globulin Ratio 1.2 10/30/19 22:06: Blood Gas Bicarbonate Standard 21.1L, Arterial Blood pH 7.347L, Arterial Blood Partial Pressure CO2 39.9, Arterial Blood Partial Pressure O2 64.7L, Arterial Blood Total CO2 22.6L, Arterial Blood HCO3 21.4L, Arterial Blood Base Excess - 3.9L, Arterial Blood Oxygen Saturation 92.5L 10/31/19 03:34: Urine Color YELLOW, Urine Appearance CLEAR, Urine pH 5.0, Urine Specific Sutton 1.013, Urine Protein NEGATIVE, Urine Glucose (UA) 1+H, Urine Ketones NEGATIVE, Urine Blood 1+H, Urine Nitrite NEGATIVE, Urine Bilirubin NEGATIVE, Urine Urobilinogen 0.2, Urine Leukocyte Esterase NEGATIVE, Urine WBC (Auto) 1, Urine RBC (Auto) 4H, Urine Hyaline Casts (Auto) 0, Urine Bacteria (Auto) NEGATIVE, Urine Squamous Epithelial Cells 0, Urine Mucus (Auto) SMALL, Urine Sperm (Auto) , Urine Random Creatinine 128.0, Urine Random Sodium 27, Urine Random Urea Nitrogen 749, Urine Opiates Screen NEGATIVE, Urine Methadone Screen POSITIVEH, Urine Barbiturates Screen NEGATIVE, Urine Phencyclidine Screen NEGATIVE, Urine Amphetamines Screen NEGATIVE, Urine Benzodiazepines Screen NEGATIVE, Urine Cocaine Metabolite Screen NEGATIVE, Urine Cannabinoids Screen NEGATIVE 10/31/19 04:14: Nucleated Red Blood Cells % (auto) 0.0, Anion Gap 6L, Glomerular Filtration Rate 49.4, Calcium Level 7.8L, Magnesium Level 1.8, Total Bilirubin 0.3, Aspartate Amino Transf (AST/SGOT) 29, Alanine Aminotransferase (ALT/SGPT) 30, Alkaline Phosphatase 59, Total Protein 5.9L, Albumin 3.1L, Albumin/Globulin Ratio 1.1 CBC/BMP Laboratory Tests 10/30/19 11:40 10/30/19 18:00 10/30/19 22:04 10/31/19 04:14 Microbiology Microbiology 10/30/19 Blood Culture, Received Pending 10/30/19 Blood Culture, Received Pending 10/30/19 Blood Culture, Received Pending SHAWN WYNNE MD Oct 31, 2019 10:55
--- NOTE | 2019-10-31 15:05 | REP ---
PORTABLE CHEST X-RAY: Sitting AP view. HISTORY: Shortness of breath, desaturation. COMPARISON CHEST X-RAY: October 30, 2019. FINDINGS: The lungs are exposed at a lesser level of inspiration today. No infiltrate is seen. The pleural angles are sharp. Cardiomediastinal silhouette is unremarkable. Oxygen delivery tubing and monitoring electrodes are seen. IMPRESSION: Lesser level of inspiration. Otherwise no acute abnormality. Electronically Signed by Robbi Kelly MD 10/31/2019 06:14 P
[2019-10-31] MEDS: hydrALAZINE 20MG/ML 1ML VIAL (J0360 PER 20MG) IV PRN (17:05)
[2019-10-31] MEDS: CETIRIZINE (ZyrTEC) 10 MG TAB PO SCH (20:40)
[2019-10-31] MEDS ORDERED: KETOROLAC 30 MG/ML 1ML VIAL IV ONE (21:30)
[2019-11-01] VITALS (9 sets, daily range): BP systolic 140–197; BP diastolic 85–108; O2SAT 94
[2019-11-01] MEDS: hydrALAZINE 20MG/ML 1ML VIAL (J0360 PER 20MG) IV PRN (00:36)
[2019-11-01] MEDS: levETIRAcetam 250MG TABLET (KEPPRA) PO SCH ×2 (03:30→14:57)
[2019-11-01] MEDS: ACETAMINOPHEN TAB 650MG DOSE (2X325MG) PO PRN ×2 (04:04→23:30)
[2019-11-01] MEDS ORDERED: lisinopriL 20 MG TAB PO ONE (05:00)
[2019-11-01 07:00] LABS: BASO # 0.1 10^3/uL (0.0-0.2); BASO % 0.7 % (0.0-1.0); EOS # 0.3 10^3/uL (0.0-0.5); EOS % 2.9 % (0.0-3.0); HEMATOCRIT 35.5 % (42.0-52.0); HEMOGLOBIN 12.2 g/dl (13.5-17.5); LYMPH % 18.6 % (24.0-44.0); MEAN CORPUSCULAR HEMOGLOBIN 30.6 pg (27.0-33.0); MEAN CORPUSCULAR HGB CONC 34.4 g/dl (32.0-36.5); MONO % 9.4 % (0.0-5.0); NEUTROPHILS # 7.3 10^3/uL (1.5-8.5); NEUTROPHILS % 68.1 % (36.0-66.0); PLATELET COUNT, AUTOMATED 206 10^3/uL (150-450); RED BLOOD COUNT 3.99 10^6/uL (4.30-6.10); WHITE BLOOD COUNT 10.8 10^3/uL (4.0-10.0)
[2019-11-01 07:33] LABS: BLOOD UREA NITROGEN 11 MG/DL (7-18); CALCIUM LEVEL 8.4 MG/DL (8.8-10.2); CARBON DIOXIDE LEVEL 26 MEQ/L (21-32); CHLORIDE LEVEL 107 MEQ/L (98-107); CREATININE FOR GFR 1.14 MG/DL (0.70-1.30); GLOMERULAR FILTRATION RATE > 60.0 (>49); GLUCOSE, FASTING 110 MG/DL (70-100); POTASSIUM SERUM 3.4 MEQ/L (3.5-5.1); SODIUM LEVEL 140 MEQ/L (136-145)
[2019-11-01] MEDS: PANTOPRAZOLE 40MG VIAL (C9113 PER 1) IV SCH (09:59)
[2019-11-01] MEDS: amLODIPine 10 MG TAB PO SCH (09:59)
[2019-11-01] MEDS: D5W/0.45% SODIUM CHLORIDE 1,000 ML IV SCH (09:59)
[2019-11-01] MEDS: ASPIRIN 81 MG ENTERIC TAB PO SCH (12:11)
[2019-11-01] MEDS: **hydrALAZINE HCL** 25 MG TAB PO SCH ×3 (12:12→23:30)
[2019-11-01] MEDS: PERCOCET 5MG/325MG TAB PO PRN ×2 (12:14→18:37)
--- NOTE | 2019-11-01 13:26 | IPNPDOC ---
Text Note Date of Service The patient was seen on 11/01/19. NOTE Subjective: Complains of severe pain in the legs and the back. Says Tylenol is not helping. Still feeling very weak and tired. No fever or chills, Has been off narcan since yesterday. Physical Exam: Vitals: as below General Exam: Positive: Alert, Cooperative Eye Exam: Positive: PERRLA, Conjunctiva & lids normal ENT Exam: Positive: Atraumatic Neck Exam: Positive: Supple, no JVD Chest Exam: Positive: Clear to auscultation, Normal air movement Heart Exam: Positive: Rate Normal, Normal S1, Normal S2, no rub murmur or gallop Abdomen Exam: Positive: Soft, normal bowel sounds Extremity Exam: Positive: Normal pulses, no edema. Skin Exam: Positive: Nl turgor and temperature Neuro Exam: Positive: Strength at 5/5 X4 ext, Sensation Intact, Cranial Nerves 3-12 NL Psych Exam: Positive: Mood NL, Oriented x 3 Labs and Radiology: reviewed. Assessment and plan: This is a 64-year-old gentleman with PMH of hypertension, hyperlipidemia, chronic pain follows at pain clinic, seizure was last admitted on June 27 for evaluation of new onset seizures; during that admission, he had an EEG which showed mild encephalopathy without epileptiform discharges; the patient was discharged with instructions not to drive heavy machinery and follow-up with neurology. Based on the discharge note antiseizure medications were not recommended by the neurologist. This time he was brought into the ER after being found unresponsive. The patient reports the last thing he remembers is sitting on the couch watching TV and chewing tobacco. Per ER notes, when EMS arrived, they noted that the patient was altered and vomiting. He became more alert on giving narcan . Since admission he had needed multiple doses of narcan and narcan gtt. Patient today reported that an acquaintance was there in his house. He had a sore throat and his friend gave him a red liquid which he said was a cough syrup and he took it after that he could not remember anything. Patient was admitted for Opiate overdose. His Utox was positive for methadone however was negative for opiates though he is on it at home. Opiate overdose accidental resolved. Acute hypercarbic and hypoxic resp failure resolved Acute metabolic encephalopathy due to opiate overdose vs unwitnessed seizure now resolved. KAMLA now resolved. will stop lisinopril Possible sleep apnea desaturates during sleep continue continuous oxygen monitoring will need sleep study as outpatient. Possible second episode of Seizure continue tristan. Hypertension continue amlodipine and hydralazine will not give Lisinopril now as just resolving KAMLA. Hyperlipidemia statin. Chronic neck, back and foot pain will restart percocet. History of abdominal aortic aneurysm. VS,Fishbone, I+O VS, Fishbone, I+O Laboratory Tests 11/01/19 06:47 Vital Signs Date Time Temp Pulse Resp B/P (MAP) Pulse Ox O2 Delivery O2 Flow Rate FiO2 11/01/19 12:14 98.4 93 16 172/98 94 Nasal Cannula 2.0 10/30/19 16:00 35 I&O- Last 24 Hours up to 6 AM 11/01/19 06:00 Intake Total 4770 ml Output Total 1700 ml Balance 3070 ml MOODY ALMENDAREZ MD Nov 01, 2019 13:26
[2019-11-01] MEDS: METOPROLOL TART 25 MG TABLET PO SCH ×2 (14:57→21:04)
[2019-11-01] MEDS ORDERED: lisinopriL 20 MG TAB PO SCH (21:00)
[2019-11-01] MEDS: ROSUVASTATIN 10 MG TAB (CRESTOR) PO SCH (21:00)
[2019-11-01] MEDS: CETIRIZINE (ZyrTEC) 10 MG TAB PO SCH (21:01)
[2019-11-02] MEDS: levETIRAcetam 250MG TABLET (KEPPRA) PO SCH ×2 (02:55→14:26)
[2019-11-02] MEDS: PERCOCET 5MG/325MG TAB PO PRN ×4 (04:37→21:54)
[2019-11-02] MEDS: **hydrALAZINE HCL** 25 MG TAB PO SCH ×4 (05:21→23:52)
[2019-11-02] MEDS: METOPROLOL TART 25 MG TABLET PO SCH ×2 (05:25→14:27)
[2019-11-02 06:00] VITALS: BP 148/88
[2019-11-02 06:31] LABS: BASO # 0.1 10^3/uL (0.0-0.2); BASO % 0.5 % (0.0-1.0); EOS # 0.5 10^3/uL (0.0-0.5); EOS % 4.5 % (0.0-3.0); HEMATOCRIT 36.3 % (42.0-52.0); LYMPH # 2.1 10^3/uL (1.5-5.0); MEAN CORPUSCULAR HEMOGLOBIN 30.2 pg (27.0-33.0); MEAN CORPUSCULAR HGB CONC 33.1 g/dl (32.0-36.5); MEAN CORPUSCULAR VOLUME 91.2 fl (80.0-96.0); MONO % 9.8 % (0.0-5.0); NEUTROPHILS # 6.4 10^3/uL (1.5-8.5); PLATELET COUNT, AUTOMATED 220 10^3/uL (150-450); RED BLOOD COUNT 3.98 10^6/uL (4.30-6.10)
[2019-11-02 06:59] LABS: BLOOD UREA NITROGEN 12 MG/DL (7-18); CALCIUM LEVEL 8.7 MG/DL (8.8-10.2); CARBON DIOXIDE LEVEL 26 MEQ/L (21-32); CHLORIDE LEVEL 108 MEQ/L (98-107); GLOMERULAR FILTRATION RATE > 60.0 (>49); GLUCOSE, FASTING 100 MG/DL (70-100); POTASSIUM SERUM 3.7 MEQ/L (3.5-5.1); SODIUM LEVEL 142 MEQ/L (136-145)
--- NOTE | 2019-11-02 08:46 | EEG ---
DATE OF PROCEDURE: 10/31/2019 REFERRING PHYSICIAN: Dr. Marjorie Nielson DIAGNOSIS: Seizure. EEG #: [id number] HISTORY: The patient is a 64-year-old man who was admitted at [facility] due to episode of loss of consciousness. The patient received Narcan and became more responsive. This EEG was done to rule out epileptic potential. He is currently taking Keppra, calcium gluconate, cetirizine, Lovenox, albuterol, Protonix, etc. TECHNICAL DESCRIPTION: This digital EEG was recorded by 21 scalp, ear and two EKG electrodes and was reviewed in bipolar and referential montages following reformatting 10-20 international electrode placement system. INTERPRETATION: The patient was noted to be in awake and drowsy states during this EEG. Resting background rhythm consisted of 8-9 Hz alpha activity measuring 15-40 microvolts in amplitude which was symmetric and reactive to eye opening. Attenuation of posterior dominant rhythm was seen during transition into drowsiness. Stage I and II sleep were reviewed and were symmetric bilaterally. Hyperventilation could not be performed. Photic stimulation remained unremarkable. EKG revealed sinus rhythm with PACs. No focal, lateralizing or epileptiform abnormalities were seen. No relevant clinical activity was noted. Rare right mid temporal wicket T-waves were seen. CONCLUSION: This EEG in awake, drowsy states, stage I and II sleep is within normal limits.
[2019-11-02] MEDS: ASPIRIN 81 MG ENTERIC TAB PO SCH (10:07)
[2019-11-02] MEDS: amLODIPine 10 MG TAB PO SCH (10:07)
[2019-11-02] MEDS: PANTOPRAZOLE 40MG VIAL (C9113 PER 1) IV SCH (10:07)
[2019-11-02 14:00] VITALS: BP 128/88
[2019-11-02 14:34] VITALS: O2SAT 93
--- NOTE | 2019-11-02 14:52 | IPNPDOC ---
Text Note Date of Service The patient was seen on 11/02/19. NOTE Subjective: Continues to have varied complaints. Today complaining of abdominal pain while moving . As per nurses he refused lunch. He ws not cleared by PT as he could not move well due to abdominal pain while walking. Physical Exam: Vitals: as below General Exam: Positive: Alert, Cooperative Eye Exam: Positive: PERRLA, Conjunctiva & lids normal ENT Exam: Positive: Atraumatic Neck Exam: Positive: Supple, no JVD Chest Exam: Positive: Clear to auscultation, Normal air movement Heart Exam: Positive: Rate Normal, Normal S1, Normal S2, no rub murmur or gallop Abdomen Exam: Positive: Soft, normal bowel sounds, mild tenderness on deep palpation Extremity Exam: Positive: Normal pulses, no edema. Skin Exam: Positive: Nl turgor and temperature Neuro Exam: Positive: Strength at 5/5 X4 ext, Sensation Intact, Cranial Nerves 3-12 NL Psych Exam: Positive: Mood NL, Oriented x 3 Labs and Radiology: reviewed. Assessment and plan: This is a 64-year-old gentleman with PMH of hypertension, hyperlipidemia, chronic pain follows at pain clinic, seizure was last admitted on June 27 for evaluation of new onset seizures; during that admission, he had an EEG which showed mild encephalopathy without epileptiform discharges; the patient was discharged with instructions not to drive heavy machinery and follow-up with neurology. Based on the discharge note antiseizure medications were not recommended by the neurologist. This time he was brought into the ER after being found unresponsive. The patient reports the last thing he remembers is sitting on the couch watching TV and chewing tobacco. Per ER notes, when EMS arrived, they noted that the patient was altered and vomiting. He became more alert on giving narcan . Since admission he had needed multiple doses of narcan and narcan gtt. Patient today reported that an acquaintance who was there in his house gave him something to drink. He had a sore throat and nasal congestion for several days so this acquaintance gave him a red liquid which he said was a cough syrup and patient took it around lunch time after that he could not remember anything. Patient was admitted for Opiate overdose. His Utox was po sitive for methadone however was negative for opiates though he is on it at home. Opiate overdose accidental resolved. Acute hypercarbic and hypoxic resp failure resolved Acute metabolic encephalopathy due to opiate overdose vs unwitnessed seizure now resolved. KAMLA now resolved. will stop lisinopril Possible sleep apnea desaturates during sleep continue continuous oxygen monitoring will need sleep study as outpatient. Possible second episode of Seizure continue kerossra. Hypertension continue amlodipine and metoprolol. hydralazine prn will not give Lisinopril now as just resolving KAMLA. Hyperlipidemia statin. Chronic neck, back and foot pain percocet. Last filled on 10/17/19 a 30 day supply as per I-stop. History of abdominal aortic aneurysm. VS,Fishbone, I+O VS, Fishbone, I+O Laboratory Tests 11/02/19 06:12 Vital Signs Date Time Temp Pulse Resp B/P (MAP) Pulse Ox O2 Delivery O2 Flow Rate FiO2 11/02/19 14:34 93 Room Air 11/02/19 14:30 18 11/02/19 14:27 72 128/88 11/02/19 06:00 97.4 11/01/19 12:44 2.0 35 I&O- Last 24 Hours up to 6 AM 11/02/19 06:00 Intake Total 2920 ml Output Total 1225 ml Balance 1695 ml MOODY ALMENDAREZ MD Nov 02, 2019 14:52
[2019-11-02 21:00] VITALS: O2SAT 90
[2019-11-02] MEDS: ROSUVASTATIN 10 MG TAB (CRESTOR) PO SCH (21:51)
[2019-11-02] MEDS: CETIRIZINE (ZyrTEC) 10 MG TAB PO SCH (21:52)
[2019-11-02] MEDS: METOPROLOL TART 50 MG TAB PO SCH (21:57)
[2019-11-02 22:00] VITALS: BP 140/84
[2019-11-03] MEDS: levETIRAcetam 250MG TABLET (KEPPRA) PO SCH (03:00)
[2019-11-03] MEDS: **hydrALAZINE HCL** 25 MG TAB PO SCH (05:32)
[2019-11-03 06:00] VITALS: BP 143/88
[2019-11-03 06:39] LABS: BASO # 0.1 10^3/uL (0.0-0.2); BASO % 0.5 % (0.0-1.0); EOS # 0.6 10^3/uL (0.0-0.5); EOS % 6.1 % (0.0-3.0); HEMATOCRIT 37.7 % (42.0-52.0); HEMOGLOBIN 12.4 g/dl (13.5-17.5); LYMPH # 1.5 10^3/uL (1.5-5.0); LYMPH % 15.9 % (24.0-44.0); MEAN CORPUSCULAR HEMOGLOBIN 29.8 pg (27.0-33.0); MEAN CORPUSCULAR HGB CONC 32.9 g/dl (32.0-36.5); MEAN CORPUSCULAR VOLUME 90.6 fl (80.0-96.0); MONO % 10.4 % (0.0-5.0); NEUTROPHILS # 6.4 10^3/uL (1.5-8.5); NEUTROPHILS % 66.8 % (36.0-66.0); PLATELET COUNT, AUTOMATED 230 10^3/uL (150-450); RED BLOOD COUNT 4.16 10^6/uL (4.30-6.10); WHITE BLOOD COUNT 9.5 10^3/uL (4.0-10.0)
[2019-11-03] MEDS: PERCOCET 5MG/325MG TAB PO PRN (06:52)
[2019-11-03 07:05] LABS: BLOOD UREA NITROGEN 16 MG/DL (7-18); CALCIUM LEVEL 8.5 MG/DL (8.8-10.2); CARBON DIOXIDE LEVEL 25 MEQ/L (21-32); CHLORIDE LEVEL 106 MEQ/L (98-107); CREATININE FOR GFR 1.22 MG/DL (0.70-1.30); GLOMERULAR FILTRATION RATE > 60.0 (>49); GLUCOSE, FASTING 96 MG/DL (70-100); POTASSIUM SERUM 3.7 MEQ/L (3.5-5.1); SODIUM LEVEL 140 MEQ/L (136-145)
[2019-11-03] MEDS ORDERED: PANTOPRAZOLE 40MG TAB (PROTONIX) PO SCH (09:00)
[2019-11-03] MEDS: ASPIRIN 81 MG ENTERIC TAB PO SCH (09:34)
[2019-11-03 09:35] VITALS: BP 140/86
[2019-11-03] MEDS: amLODIPine 10 MG TAB PO SCH (09:35)
[2019-11-03] MEDS: METOPROLOL TART 50 MG TAB PO SCH (09:36)
[2019-11-03] MEDS ORDERED: CRES10TA PO (10:10)
[2019-11-03] MEDS ORDERED: LOPR1TAB6 PO (10:10)
[2019-11-03] MEDS ORDERED: AMLO10TA5 PO (10:10)
[2019-11-03] MEDS ORDERED: KEPP1TAB PO (10:26)
--- NOTE | 2019-11-05 13:31 | DS.PDOC ---
Discharge Summary General Date of Admission Oct 30, 2019 at 16:24 Date of Discharge 11/03/19 Discharge Summary PROCEDURES PERFORMED DURING STAY: [None]. DISCHARGE DIAGNOSES: Accidental Opiate overdose Acute respiratory failure with hypercarbia and hypoxia. Acute toxic metabolic encephalopathy KAMLA Possible Seizure second episode Possible sleep apnea. Hypertension Hyperlipidemia Chronic back pain Abdominal aortic aneurysm. COMPLICATIONS/CHIEF COMPLAINT: Seizure. HOSPITAL COURSE: This is a 64-year-old gentleman with PMH of hypertension, hy perlipidemia, chronic pain follows at pain clinic, seizure was last admitted on June 27 for evaluation of new onset seizures; during that admission, he had an EEG which showed mild encephalopathy without epileptiform discharges; the patient was discharged with instructions not to drive heavy machinery and follow-up with neurology. Based on the discharge note antiseizure medications were not recommended by the neurologist. This time he was brought into the ER after being found unresponsive. The patient reports the last thing he remembers is sitting on the couch watching TV and chewing tobacco. Per ER notes, when EMS arrived, they noted that the patient was altered and vomiting. He became more alert on giving narcan . Since admission he had needed multiple doses of narcan and narcan gtt. Patient today reported that an acquaintance who was there in his house gave him something to drink. He had a sore throat and nasal congestion for several days so this acquaintance gave him a red liquid which he said was a cough syrup and patient took it around lunch time after that he could not remember anything. Patient was admitted for Opiate overdose. His Utox was positive for methadone however was negative for opiates though he is on it at home. Opiate overdose accidental resolved. Acute hypercarbic and hypoxic resp failure due to above. resolved Acute metabolic encephalopathy due to opiate overdose vs unwitnessed seizure now resolved. KAMLA now resolved. will stop lisinopril Possible sleep apnea desaturates during sleep continue continuous oxygen monitoring will need sleep study as outpatient. Possible second episode of Seizure continue keppra. Hypertension continue amlodipine and metoprolol. hydralazine prn will not give Lisinopril now as just resolving KAMLA. Hyperlipidemia statin. Chronic neck, back and foot pain percocet. Last filled on 10/17/19 a 30 day supply as per [id number]. History of abdominal aortic aneurysm. DISCHARGE MEDICATIONS: Please see below. ALLERGIES: Please see below. PHYSICAL EXAMINATION ON DISCHARGE: VITAL SIGNS: Please see below. General Exam: Positive: Alert, Cooperative Eye Exam: Positive: PERRLA, Conjunctiva & lids normal ENT Exam: Positive: Atraumatic Neck Exam: Positive: Supple, no JVD Chest Exam: Positive: Clear to auscultation, Normal air movement Heart Exam: Positive: Rate Normal, Normal S1, Normal S2, no rub murmur or gallop Abdomen Exam: Positive: Soft, normal bowel sounds, mild tenderness on deep palpation Extremity Exam: Positive: Normal pulses, no edema. Skin Exam: Positive: Nl turgor and temperature Neuro Exam: Positive: Strength at 5/5 X4 ext, Sensation Intact, Cranial Nerves 3-12 NL Psych Exam: Positive: Mood NL, Oriented x 3 LABORATORY DATA: Please see below. ACTIVITY: [As tolerated]. DIET: As tolerated DISPOSITION: 01 Home, Self-Care. DISCHARGE INSTRUCTIONS: Follow up with PMD in 1 week DISCHARGE CONDITION: [Stable]. TIME SPENT ON DISCHARGE: 35 minutes. Vital Signs/I&Os Vital Signs Date Time Temp Pulse Resp B/P (MAP) Pulse Ox O2 Delivery O2 Flow Rate FiO2 11/03/19 09:35 77 140/86 11/03/19 07:22 17 11/03/19 06:52 Room Air 11/03/19 06:00 97.9 92 11/01/19 12:44 2.0 35 Microbiology Microbiology 10/30/19 Blood Culture - Final, Complete NO GROWTH AFTER 5 DAYS 10/30/19 Blood Culture - Final, Complete NO GROWTH AFTER 5 DAYS 10/30/19 Blood Culture - Final, Complete NO GROWTH AFTER 5 DAYS Discharge Medications Scheduled Amlodipine Besylate (Amlodipine Besylate) 10 Mg Tablet, 10 MG PO DAILY Aspirin (Aspirin EC) 81 Mg Tablet.dr, 81 MG PO DAILY, (Reported) Levetiracetam (Keppra) 500 Mg Tablet, 1 TAB PO BID Metoprolol Tartrate (Lopressor) 50 Mg Tablet, 50 MG PO BID Rosuvastatin Calcium (Crestor) 10 Mg Tablet, 20 MG PO QHS Scheduled PRN Oxycodone HCl/Acetaminophen (Oxycodone-Acetaminophen 5-325) 1 Each Tablet, 1 TAB PO TIDP PRN for PAIN, (Reported) Allergies Coded Allergies: No Known Allergies (Verified , 03/01/19) MOODY ALMENDAREZ MD Nov 05, 2019 13:31
== END 2019-11-03 12:24 | disposition home or self-care (01) | DRG 917 ==
LOC: EDBD 11:18 → M ED 11:18 → M ED INP 16:24 → ENRESERV 17:20 → M ICU 19:06 → M MSPAV 11-01 14:08
PROVIDERS: ADMIT Internal Medicine; ATTEND Internal Medicine Nephrology
DX: T40.601A Poisoning by unspecified narcotics, accidental (unintentional), initial encounter (principal); J96.01 Acute respiratory failure with hypoxia; G92 Toxic encephalopathy; J96.02 Acute respiratory failure with hypercapnia; N17.9 Acute kidney failure, unspecified; E87.2 Acidosis; N18.3 Chronic kidney disease, stage 3 (moderate); E87.5 Hyperkalemia; E78.5 Hyperlipidemia, unspecified; I71.4 Abdominal aortic aneurysm, without rupture; G47.33 Obstructive sleep apnea (adult) (pediatric); M54.5 Low back pain; R56.9 Unspecified convulsions; I12.9 Hypertensive chronic kidney disease with stage 1 through stage 4 chronic kidney disease, or unspecified chronic kidney disease; G89.29 Other chronic pain; Z79.899 Other long term (current) drug therapy; F17.220 Nicotine dependence, chewing tobacco, uncomplicated

== ENCOUNTER → 2020-08-03 | Outpatient (REF) | payer MEDICARE, OTHER ==
[~2020-08-03] MED LIST changes: +AMLO1TAB25 PO; -ASPI81TA85 PO; +ASPI81TA86 PO; +CRES10TA PO; +KEPP1TAB PO; -LISI40TA PO; +LISI40TA4 PO; +LOPR1TAB6 PO; +MELA3TAB30 PO; -MELA3TAB62 PO; +NICO-264 MT; -NICO4LOZ MT; +patient comment
[2020-08-03 17:17] LABS: BASO # 0.1 10^3/uL (0.0-0.2); BASO % 0.8 % (0.0-1.0); EOS # 0.4 10^3/uL (0.0-0.5); HEMATOCRIT 42.5 % (42.0-52.0); HEMOGLOBIN 13.6 g/dl (13.5-17.5); LYMPH # 2.7 10^3/uL (1.5-5.0); LYMPH % 26.1 % (24.0-44.0); MEAN CORPUSCULAR HEMOGLOBIN 30.2 pg (27.0-33.0); MEAN CORPUSCULAR VOLUME 94.4 fl (80.0-96.0); MONO # 0.8 10^3/uL (0.0-0.8); NEUTROPHILS # 6.2 10^3/uL (1.5-8.5); NEUTROPHILS % 60.6 % (36.0-66.0); PLATELET COUNT, AUTOMATED 293 10^3/uL (150-450); WHITE BLOOD COUNT 10.2 10^3/uL (4.0-10.0)
[2020-08-03 17:50] LABS: ALBUMIN 4.3 GM/DL (3.2-5.2); ALT/SGPT 44 U/L (12-78); BILIRUBIN,TOTAL 0.2 MG/DL (0.2-1.0); BLOOD UREA NITROGEN 23 MG/DL (7-18); C REACTIVE PROTEIN QUANTITATIV 0.58 MG/DL (0.00-0.30); CALCIUM LEVEL 9.2 MG/DL (8.8-10.2); CARBON DIOXIDE LEVEL 29 MEQ/L (21-32); CHLORIDE LEVEL 109 MEQ/L (98-107); CHOLESTEROL LEVEL 156 MG/DL (<200); CHOLESTEROL RISK RATIO 2.516 (<5); CREATININE FOR GFR 1.25 MG/DL (0.70-1.30); FERRITIN 42 NG/ML (26-388); FREE T4 0.65 NG/DL (0.76-1.46); GLOMERULAR FILTRATION RATE > 60.0 (>49); GLUCOSE, FASTING 73 MG/DL (70-100); HDL CHOLESTEROL 62 MG/DL (>40); LDL CHOLESTEROL 70 MG/DL (<100); NON-HDL-C 94 MG/DL; POTASSIUM SERUM 4.4 MEQ/L (3.5-5.1); SODIUM LEVEL 143 MEQ/L (136-145); TOTAL PROTEIN 7.6 GM/DL (6.4-8.2); TRIGLYCERIDES LEVEL 119 MG/DL (<150)
[2020-08-03 17:53] LABS: VITAMIN B12 LEVEL 1083 PG/ML (247-911)
[2020-08-03 18:21] LABS: ERYTHROCYTE SEDIMENTATION RATE 41 mm/hr (0-20)
[2020-08-06 11:27] LABS: ALBUMIN 4.55 GM/DL (3.29-5.55); ALBUMIN % 59.9 % (55.8-66.1); ALPHA-1-GLOBULIN % 3.8 % (2.9-4.9); ALPHA-1-GLOBULINS 0.29 GM/DL (0.17-0.41); ALPHA-2-GLOBULINS 0.84 GM/DL (0.42-0.99); BETA-1-GLOBULINS 0.42 GM/DL (0.28-0.60); BETA-1-GLOBULINS % 5.5 % (4.7-7.2); BETA-2-GLOBULINS % 5.2 % (3.2-6.5); GAMMA GLOBULIN % 14.6 % (11.1-18.8)
[2020-08-06 11:28] LABS: GAMMA GLOBULINS 1.11 GM/DL (0.65-1.58)
== END ==
LOC: M SFHCPLAZ 13:39
PROVIDERS: ATTEND Family Medicine
DX: E78.2 Mixed hyperlipidemia (principal); I10 Essential (primary) hypertension; Z12.5 Encounter for screening for malignant neoplasm of prostate; C18.9 Malignant neoplasm of colon, unspecified
CPT/HCPCS: 36415; 80053; 80061; 82607; 82728; 84165; 84439; 84443; 85025; 85652; 86140; G0103; G0463

== ENCOUNTER 2020-09-28 10:25 | Inpatient (IN) | payer OTHER, MEDICARE ==
[~2020-09-28] VITALS: Ht 165.1 cm; Wt 89.0 kg
[2020-09-28] MEDS ORDERED: TRAZ-252 PO (10:34)
--- NOTE | 2020-09-28 10:51 | REPVR ---
PROCEDURE INFORMATION: Exam: CT Head Without Contrast Exam date and time: 09/28/2020 10:35 AM Age: 65 years old Clinical indication: Altered mental status/memory loss and weakness, extremity; Left; Confusion or disorientation; Additional info: R/O CVA TECHNIQUE: Imaging protocol: Computed tomography of the head without contrast. Radiation optimization: All CT scans at this facility use at least one of these dose optimization techniques: automated exposure control; mA and/or kV adjustment per patient size (includes targeted exams where dose is matched to clinical indication); or iterative reconstruction. Other technique: STROKE PROTOCOL was implemented. COMPARISON: CT Head without contrast 10/30/2019 1:09 PM FINDINGS: Brain: Symmetric prominence of the cortical and cerebellar sulci. Mild small vessel ischemic change. No acute cortical infarct, mass effect, or intracranial hemorrhage. Cerebral ventricles: Normal configuration of the ventricles. Bones/joints: No acute calvarial pathology. Paranasal sinuses: No sinus fluid. Mastoid air cells: No mastoid effusion. Soft tissues: Unremarkable soft tissues. IMPRESSION: No acute intracranial pathology. ASSESSMENT: ASPECTS ([place] Stroke Program Early CT Score) is 10. The aforementioned findings initiated a critical results communication pathway. An addendum will be issued at the time of clincian notification. Electronically signed by: Ga Hinds On 09/28/2020 10:51:18 AM
--- NOTE | 2020-09-28 11:10 | REP ---
INDICATION: Altered Mental Status. COMPARISON: 10/31/2019. TECHNIQUE: Single portable AP view of the chest was performed. FINDINGS: There is no acute infiltrate or pulmonary edema. Lungs are clear. The heart is not significantly enlarged. The mediastinal silhouette is unremarkable. The visualized osseous structures are intact. IMPRESSION: No acute pulmonary disease. <Electronically signed by Dwayne Burgos > 09/28/20 [id number]
[2020-09-28 13:44] LABS: VENOUS BASE EXCESS -1.2 (-2.0-2.0); VENOUS HCO3 25.3 MEQ/L (23.0-27.0); VENOUS PARTIAL PRESSURE CO2 50.1 mmHg (38.0-50.0); VENOUS PARTIAL PRESSURE O2 36.2 mmHg (30.0-50.0); VENOUS PH 7.322 UNITS (7.330-7.430); VENOUS STANDARD HCO3 22.7 MEQ/L; VENOUS TOTAL CO2 26.9 MEQ/L (24.0-28.0)
[2020-09-28 13:50] LABS: BASO # 0.1 10^3/uL (0.0-0.2); BASO % 0.9 % (0.0-1.0); EOS # 0.5 10^3/uL (0.0-0.5); EOS % 7.1 % (0.0-3.0); HEMATOCRIT 38.4 % (42.0-52.0); HEMOGLOBIN 12.4 g/dl (13.5-17.5); LYMPH # 2.3 10^3/uL (1.5-5.0); LYMPH % 35.4 % (24.0-44.0); MEAN CORPUSCULAR HEMOGLOBIN 30.2 pg (27.0-33.0); MEAN CORPUSCULAR HGB CONC 32.3 g/dl (32.0-36.5); MEAN CORPUSCULAR VOLUME 93.7 fl (80.0-96.0); MONO # 0.6 10^3/uL (0.0-0.8); MONO % 9.1 % (2.0-8.0); NEUTROPHILS % 47.3 % (36.0-66.0); PLATELET COUNT, AUTOMATED 253 10^3/uL (150-450); WHITE BLOOD COUNT 6.4 10^3/uL (4.0-10.0)
[2020-09-28 14:10] LABS: MAGNESIUM LEVEL 2.6 MG/DL (1.8-2.4)
[2020-09-28 14:26] LABS: ALT/SGPT 37 U/L (12-78); BILIRUBIN,DIRECT < 0.1 MG/DL (0.0-0.2); BILIRUBIN,TOTAL 0.3 MG/DL (0.2-1.0); BLOOD UREA NITROGEN 19 MG/DL (7-18); CALCIUM LEVEL 9.1 MG/DL (8.8-10.2); CARBON DIOXIDE LEVEL 31 MEQ/L (21-32); CHLORIDE LEVEL 107 MEQ/L (98-107); CK-MB VALUE MASS 2.2 NG/ML (<3.6); CPK CREATINE PHOSPHOKINASE 256 U/L (39-308); CREATININE FOR GFR 1.52 MG/DL (0.70-1.30); GLOMERULAR FILTRATION RATE 49.2 (>49); GLUCOSE, FASTING 82 MG/DL (70-100); MB/CK RELATIVE INDEX 0.86 (< OR =4); POTASSIUM SERUM 4.5 MEQ/L (3.5-5.1); SODIUM LEVEL 140 MEQ/L (136-145); TROPONIN I < 0.02 NG/ML (< 0.10)
[2020-09-28 14:29] LABS: OSMOLALITY SERUM 298 MOSM/KG (280-301)
[2020-09-28] MEDS ORDERED: MOM 30ML SUSPENSION UDC PO PRN (17:15)
[2020-09-28] MEDS ORDERED: MAALOX 30 ML SUSP *UDC PO PRN (17:15)
--- NOTE | 2020-09-28 17:26 | HPEPDOC ---
[facility] Medical History & Physical Date of Admission September 28, 2020 Date of Service: September 28, 2020 History and Physical CHIEF COMPLAINT: slurred speech, left sided weakness HISTORY OF PRESENT ILLNESS: 65 yo M with a PMHx of HTN, seizures, CKD3, AAA and dyslipidemia, presented to ER with a 3 week history of slurred speech, L sided (LUE and LLE) weakness and frequent falling. He also complains of chronic L sided back back pain radiating from his LLE to the L upper lumbar region. He denies any blurred vision, chest pain, SOB, palpitations. Noncontrast CT head in the ER showed mild microvascular disease and no acute abnormalities. PAST MEDICAL HISTORY: HTN Seizures CKD3 AAA Dyslipidemia SOCIAL HISTORY: Patient denies smoking Patient denies etoh use Patient denies illicit drug use FAMILY HISTORY: Family history reviewed with patient no pertinent history provided ALLERGIES: Please see below. REVIEW OF SYSTEMS: 10 point review of systems completed, relevant findings are noted in HPI HOME MEDICATIONS: Please see below. PHYSICAL EXAMINATION: VITAL SIGNS: please see below General: NAD, comfortable HEENT: PERRLA, EOMI, sclerae clear Neck: supple, normal ROM, no JVD Respiratory: lungs CTAB, no wheeze, no rales, no crackles CVS: RRR, normal S1, S2, no murmurs Abdo: soft, no masses, no hepatosplenomegaly, BS+, no rebound tenderness Extremities: no edema, pulses 2+ MSK: no joint deformities, normal ROM Neuro: no focal neuro deficits, moving all 4 extremities, CN2-12 intact. Strength 5/5 in all 4 extremities. No nystagmus. Psych: calm, cooperative, AAO x 3 LABORATORY DATA: See below. IMAGING: Carotid US (09/28/20) Bilateral luminal narrowing of the internal carotid arteries less than 50%. No evidence of hemodynamically significant stenosis. CXR (09/28/20) No acute pulmonary disease. MRI brain (09/28/20): 1. Stable appearance of a small focus of restricted diffusion in the right subcortical posterior parieto-occipital white matter. Finding may represent sequelae of a small prior infarct, possibly venous. 2. Scattered foci T2 lengthening in the subcortical, centrum semiovale and periventricular white matter best demonstrated on FLAIR weighted images. Findings are stable in comparison to the prior study likely representing small foci of age related microvascular gliotic change. 3. No acute intracranial findings. MRA brain (09/28/20): ANTERIOR CIRCULATION: Right internal carotid artery: Intracranial segment is patent with no significant stenosis. No aneurysm. Right middle cerebral artery: No occlusion or significant stenosis. No aneurysm. Right anterior cerebral artery: No occlusion or significant stenosis. No aneurysm. Left internal carotid artery: Intracranial segment is patent with no significant stenosis. No aneurysm. Left middle cerebral artery: No occlusion or significant stenosis. No aneurysm. Left anterior cerebral artery: No occlusion or significant stenosis. No aneurysm. POSTERIOR CIRCULATION: Right vertebral artery: No occlusion or significant stenosis. No aneurysm. Left vertebral artery: No occlusion or significant stenosis. No aneurysm. Basilar artery: No occlusion or significant stenosis. No aneurysm. Right posterior cerebral artery: No occlusion or significant stenosis. No aneurysm. Left posterior cerebral artery: No occlusion or significant stenosis. No aneurysm. IMPRESSION: No stenosis or occlusion. CT non contrast (09/28/20): FINDINGS: Brain: Symmetric prominence of the cortical and cerebellar sulci. Mild small vessel ischemic change. No acute cortical infarct, mass effect, or intracranial hemorrhage. Cerebral ventricles: Normal configuration of the ventricles. Bones/joints: No acute calvarial pathology. Paranasal sinuses: No sinus fluid. Mastoid air cells: No mastoid effusion. Soft tissues: Unremarkable soft tissues. IMPRESSION: No acute intracranial pathology. MICROBIOLOGY: Please see below. ASSESSMENT: 65 yo M with a PMHx of HTN, seizures, CKD3, AAA and dyslipidemia, presented to ER with a 3 week history of slurred speech, L sided (LUE and LLE) weakness and frequent falling. He also complains of chronic L sided back back pain radiating from his LLE to the L upper lumbar region. He denies any blurred vision, chest pain, SOB, palpitations. Noncontrast CT head in the ER showed mild microvascular disease and no acute abnormalities. . PLAN: L sided weakness with falls and dysarthria possible 2/2 CVA - 3 week hx of symptoms - CT head showed mild microvascular disease, without acute changes - carotid US showed luminal narrowing to be less than 50% bilaterally - BP appropriate - D/w Dr. Barlow, neurology consult placed - recommending MRI and MRA brain, 2D echo. Carotid US as above. - MRA brain negative for stenosis or occlusion - MRI brain showing likely chronic prior focus of a small possible venous infarct in R subcortical posterio parieto-occipital white matter. - per Dr. Barlow recommendations, will c/w full dose ASA. - start statin. Frequent falls - PT/OT ordered - check b12, vitamin D Possible hx of Seizure disorder - previosly admitted with suspected seizures - EEG showing epileptiform changes, but was DC without anti-epilepti KAMLA on CKD3 - baseline Cr 1.52 - baseline Cr ~1.2 - possible pre-renal - check CPK, renal US, urine lytes - will give gently IVF NS 100 cc/hr Chronic neck, back and foot pain - need to clarify pain regimen and last visit with pain clinic - tylenol, lidocaine patch for no Hx of opiate abuse, remote - previously admitted with respiratory failure 2/2 accidental opiate overdose - hx of methadone Hx of AAA - not seen on CT from 2019 - will screen with abdo US DVT ppx: heparin Vital Signs Vital Signs Date Time Temp Pulse Resp B/P (MAP) Pulse Ox O2 Delivery O2 Flow Rate FiO2 09/28/20 16:55 66 16 96 Room Air 09/28/20 15:01 140/72 (94) 09/28/20 10:25 97.1 Laboratory Data Labs 24H Laboratory Tests 2 09/28/20 13:31: Immature Granulocyte % (Auto) 0.2, Neutrophils (%) (Auto) 47.3, Lymphocytes (%) (Auto) 35.4, Monocytes (%) (Auto) 9.1H, Eosinophils (%) (Auto) 7.1H, Basophils (%) (Auto) 0.9, Neutrophils # (Auto) 3.0, Lymphocytes # (Auto) 2.3, Monocytes # (Auto) 0.6, Eosinophils # (Auto) 0.5, Basophils # (Auto) 0.1, Nucleated Red Blood Cells % (auto) 0.0, Blood Gas Bicarbonate Standard 22.7, Venous Blood pH 7.322L, Venous Blood Partial Pressure CO2 50.1H, Venous Blood Partial Pressure O2 36.2, Venous Blood Total Carbon Dioxide 26.9, Venous Blood HCO3 25.3, Venous Blood Oxygen Saturation 66.0, Venous Blood Base Excess -1.2, Anion Gap 2L, Gl omerular Filtration Rate 49.2, Osmolality 298, Calcium Level 9.1, Magnesium Level 2.6H, Total Bilirubin 0.3, Direct Bilirubin < 0.1, Aspartate Amino Transf (AST/SGOT) 26, Alanine Aminotransferase (ALT/SGPT) 37, Alkaline Phosphatase 72, Ammonia 20, Total Creatine Kinase 256, Creatine Kinase MB 2.2, Creatine Kinase MB Relative Index 0.86, Troponin I < 0.02, Total Protein 7.0, Albumin 4.0, Albumin/Globulin Ratio 1.3, Thyroid Stimulating Hormone (TSH) 3.160 CBC/BMP Laboratory Tests 09/28/20 13:31 Microbiology Microbiology 09/28/20 Respiratory Virus Panel (PCR) ([facility]) - Final, Complete Home Medications No Active Prescriptions or Reported Meds Allergies Coded Allergies: No Known Allergies (Verified , 03/01/19) SUSI DE MD September 28, 2020 17:25
[2020-09-28] MEDS ORDERED: ASPIRIN 325 MG TAB PO ONE (18:00)
--- NOTE | 2020-09-28 18:28 | REP ---
INDICATION: r/o carotid stenosis COMPARISON: None. TECHNIQUE: Real-time ultrasound evaluation and duplex Doppler interrogation of the extracranial carotid vasculature is performed. FINDINGS: There is mild plaquing and narrowing in both carotid bulbs extending into the internal and external carotid arteries. Luminal narrowing is less than 50%. There is no evidence of hemodynamically significant stenosis of either internal carotid artery. Normal flow velocities are seen. The vertebral arteries demonstrate normal direction of flow. RIGHT LEFT Peak systolic velocity ICA 89.5 cm/s 81.8 cm/s End diastolic velocity ICA 31.3 cm/s 33.5 cm/s Peak systolic velocity CCA 68.5 cm/s 79.0cm/s Peak systolic velocity ECA 43.4 cm/s 82.9 cm/s ICA/CCA ratio 1.30 1.03 IMPRESSION: Bilateral luminal narrowing of the internal carotid arteries less than 50%. No evidence of hemodynamically significant stenosis. <Electronically signed by Dwayne Burgos > 09/28/20 [id number]
--- NOTE | 2020-09-28 20:53 | REPVR ---
PROCEDURE INFORMATION: Exam: MR Head Without Contrast Exam date and time: 09/28/2020 8:17 PM Age: 65 years old Clinical indication: Weakness, extremity; Patient HX: Left side weak TECHNIQUE: Imaging protocol: MR of the head without contrast. COMPARISON: MRI-Brain W/O FOLL BY WITH 06/28/2019 9:15 AM FINDINGS: Brain: Stable appearance of a small focus of restricted diffusion in the right subcortical posterior parieto-occipital white matter. Finding may represent sequelae of a small prior infarct, possibly venous. Scattered foci T2 lengthening in the subcortical, centrum semiovale and periventricular white matter best demonstrated on FLAIR weighted images. Findings are stable in comparison to the prior study likely representing small foci of age related microvascular gliotic change. Cerebral ventricles: Normal. No ventriculomegaly. Bones/joints: Unremarkable. Paranasal sinuses: Normal as visualized. No acute sinusitis. Mastoid air cells: Normal as visualized. No mastoid effusion. Orbital cavity: Unremarkable. Soft tissues: Unremarkable. IMPRESSION: 1. Stable appearance of a small focus of restricted diffusion in the right subcortical posterior parieto-occipital white matter. Finding may represent sequelae of a small prior infarct, possibly venous. 2. Scattered foci T2 lengthening in the subcortical, centrum semiovale and periventricular white matter best demonstrated on FLAIR weighted images. Findings are stable in comparison to the prior study likely representing small foci of age related microvascular gliotic change. 3. No acute intracranial findings. Electronically signed by: Travis Mcknight On 09/28/2020 20:53:33 PM
--- NOTE | 2020-09-28 20:55 | REPVR ---
PROCEDURE INFORMATION: Exam: MRA Head Without Contrast; Arteriography Exam date and time: 09/28/2020 8:16 PM Age: 65 years old Clinical indication: Weakness; Patient HX: Left side weak TECHNIQUE: Imaging protocol: Magnetic resonance angiography head without contrast. Exam focused on the arteries. COMPARISON: MRI-Brain W/O FOLL BY WITH 06/28/2019 9:15 AM FINDINGS: ANTERIOR CIRCULATION: Right internal carotid artery: Intracranial segment is patent with no significant stenosis. No aneurysm. Right middle cerebral artery: No occlusion or significant stenosis. No aneurysm. Right anterior cerebral artery: No occlusion or significant stenosis. No aneurysm. Left internal carotid artery: Intracranial segment is patent with no significant stenosis. No aneurysm. Left middle cerebral artery: No occlusion or significant stenosis. No aneurysm. Left anterior cerebral artery: No occlusion or significant stenosis. No aneurysm. POSTERIOR CIRCULATION: Right vertebral artery: No occlusion or significant stenosis. No aneurysm. Left vertebral artery: No occlusion or significant stenosis. No aneurysm. Basilar artery: No occlusion or significant stenosis. No aneurysm. Right posterior cerebral artery: No occlusion or significant stenosis. No aneurysm. Left posterior cerebral artery: No occlusion or significant stenosis. No aneurysm. IMPRESSION: No stenosis or occlusion. Electronically signed by: Travis Mcknight On 09/28/2020 20:55:13 PM
[2020-09-28] MEDS: ACETAMINOPHEN TAB 650MG DOSE (2X325MG) PO PRN (20:58)
[2020-09-28 21:02] VITALS: BP 165/74
[2020-09-28] MEDS: ATORVASTATIN 20 MG TAB PO SCH (21:33)
[2020-09-28] MEDS: DOCUSATE SODIUM 100MG CAPSULE PO SCH (21:33)
[2020-09-28] MEDS: HEPARIN SOD (PORCINE) 5000UNITS/ML 1ML VIAL/SYRINGE SC SCH (21:33)
[2020-09-28] MEDS: NS 1,000 ML IV SCH (21:34)
[2020-09-28 21:50] LABS: HEMOGLOBIN A1c 5.2 %
--- NOTE | 2020-09-29 00:21 | REPVR ---
PROCEDURE INFORMATION: Exam: US Abdomen Complete Exam date and time: 09/28/2020 11:40 PM Age: 65 years old Clinical indication: Pain and condition or disease; Kidney or ureter condition and other: Possible HX aaa; Other: Rell; Other: Back; Additional info: Back pain, rell, HX aaa TECHNIQUE: Imaging protocol: Real-time ultrasound of the abdomen with image documentation. COMPARISON: CT ABD PELVIS W/O CONTRAST 10/30/2019 1:17 PM FINDINGS: Liver: Unremarkable as visualized. Gallbladder: Suboptimally visualized. Common bile duct: No stones. No ductal dilatation. Pancreas: Suboptimally visualized. Right kidney: No mass. No definite stones. No hydronephrosis. Left kidney: No mass. No definite stones. No hydronephrosis. Spleen: Unremarkable. Aorta: Suboptimally visualized. Inferior vena cava: Suboptimally visualized. IMPRESSION: Limited examination, nondiagnostic for aortic aneurysm. Electronically signed by: Rj Dacosta On 09/29/2020 00:20:38 AM
[2020-09-29 06:00] VITALS: BP 131/68
[2020-09-29] MEDS: NS 1,000 ML IV SCH ×2 (06:14→17:14)
[2020-09-29] MEDS: HEPARIN SOD (PORCINE) 5000UNITS/ML 1ML VIAL/SYRINGE SC SCH ×3 (06:14→21:23)
[2020-09-29 06:22] LABS: BASO # 0.1 10^3/uL (0.0-0.2); BASO % 1.1 % (0.0-1.0); EOS # 0.4 10^3/uL (0.0-0.5); EOS % 6.5 % (0.0-3.0); HEMOGLOBIN 11.8 g/dl (13.5-17.5); LYMPH # 2.4 10^3/uL (1.5-5.0); LYMPH % 44.4 % (24.0-44.0); MEAN CORPUSCULAR HEMOGLOBIN 29.5 pg (27.0-33.0); MEAN CORPUSCULAR HGB CONC 31.9 g/dl (32.0-36.5); MEAN CORPUSCULAR VOLUME 92.5 fl (80.0-96.0); MONO # 0.5 10^3/uL (0.0-0.8); MONO % 9.6 % (2.0-8.0); NEUTROPHILS # 2.1 10^3/uL (1.5-8.5); NEUTROPHILS % 38.2 % (36.0-66.0); PLATELET COUNT, AUTOMATED 239 10^3/uL (150-450); WHITE BLOOD COUNT 5.4 10^3/uL (4.0-10.0)
[2020-09-29 06:43] LABS: ALBUMIN 3.3 GM/DL (3.2-5.2); BILIRUBIN,TOTAL 0.3 MG/DL (0.2-1.0); CALCIUM LEVEL 8.3 MG/DL (8.8-10.2); CHOLESTEROL RISK RATIO 2.2 (<5); CREATININE FOR GFR 1.32 MG/DL (0.70-1.30); GLOMERULAR FILTRATION RATE 57.9 (>49); MAGNESIUM LEVEL 2.3 MG/DL (1.8-2.4); POTASSIUM SERUM 4.1 MEQ/L (3.5-5.1); TOTAL PROTEIN 6.2 GM/DL (6.4-8.2)
[2020-09-29] MEDS: DOCUSATE SODIUM 100MG CAPSULE PO SCH ×2 (08:13→21:22)
[2020-09-29] MEDS: ACETAMINOPHEN TAB 650MG DOSE (2X325MG) PO PRN (08:15)
--- NOTE | 2020-09-29 09:27 | ECGEPIP ---
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
--- NOTE | 2020-09-29 10:32 | IPNPDOC ---
Date Seen The patient was seen on 09/29/20. Progress Note SUBJECTIVE: Patient was seen and examined at bedside this morning. Reports no acute events overnight. Persistent left back pain. Denies any chest pain, chest breath, palpitations, nausea, vomiting, diarrhea. Had a chance to speak with his regarding the patient's medications. List will be provided below. This will give more context Vianney reason for admission. She states that she has not heard of left-sided weakness as a complaint from him. However, she does report altered mental status and confusion last several days along with frequent falling. Patient is reported to take cyclobenzaprine 25 mg 3 times a day as well as hydroxyzine for anxiety. Perhaps this is a component of medication overuse leading to falling. OBJECTIVE PHYSICAL EXAMINATION: ITAL SIGNS: please see below General: NAD, comfortable HEENT: PERRLA, EOMI, sclerae clear Neck: supple, normal ROM, no JVD Respiratory: lungs CTAB, no wheeze, no rales, no crackles CVS: RRR, normal S1, S2, no murmurs Abdo: soft, no masses, no hepatosplenomegaly, BS+, no rebound tenderness Extremities: no edema, pulses 2+ MSK: no joint deformities, normal ROM Neuro: no focal neuro deficits, moving all 4 extremities, CN2-12 intact. S trength 5/5 in all 4 extremities. No nystagmus. Psych: calm, cooperative, AAO x 3 LABORATORY DATA: See below. LABORATORY DATA, IMAGING STUDIES, MICROBIOLOGY: Please see below. Echocardiogram: ordered, 09/29/20 DVT prophylaxis ordered?: heparin 5000 units q8h ASSESSMENT AND PLAN: ASSESSMENT: 65 yo M with a PMHx of HTN, seizures, CKD3, AAA and dyslipidemia, presented to ER with a 3 week history of slurred speech, L sided (LUE and LLE) weakness and frequent falling. He also complains of chronic L sided back back pain radiating from his LLE to the L upper lumbar region. He denies any blurred vision, chest pain, SOB, palpitations. Noncontrast CT head in the ER showed mild microvascular disease and no acute abnormalities. Patient's states that the patient did not complain to her about weakness and rather the main concern is confusion and frequent falling for the past 3 days. She also reports a hx of opiate abuse and warns not to administer opiates for pain control. . PLAN: L sided weakness with falls and dysarthria possible 2/2 CVA - questionable report of L sided weakness not consistent with exam. Patient's denies him complaining weakness, but is concern about confusion and frequent falling - patient reported 3 weeks of symptoms but per , only 3 days - CT head showed mild microvascular disease, without acute changes - carotid US showed luminal narrowing to be less than 50% bilaterally - BP appropriate - MRA brain negative for stenosis or occlusion - MRI brain showing likely chronic prior focus of a small possible venous infarct in R subcortical posterio parieto-occipital white matter. - no stenosis seen on carotid US - D/w Dr. Barlow, neurology consult placed, cleared for DC from neurology standpoint - patient takes flexeril 25 mg TID, will reduce to 10 mg TID (avoid abrupt cessation), and reduce dose of hydroxyzine from 25 - per Dr. Barlow recommendations, will c/w full dose ASA. - start statin. HTN - resume home lisinopril 40 mg daily Frequent falls - PT/OT ordered - check b12, vitamin D Possible hx of Seizure disorder - previosly admitted with suspected seizures - EEG showed epileptiform changes, but was DC without anti-epileptic meds, presently not taking KAMLA on CKD3 - baseline Cr 1.52 - baseline Cr ~1.2 - possible pre-renal - check CPK, renal US, urine lytes - will give gently IVF NS 100 cc/hr - Cr improving with hydration Chronic neck, back and foot pain - need to clarify pain regimen and last visit with pain clinic - tylenol, lidocaine patch for no Hx of opiate abuse, remote - previously admitted with respiratory failure 2/2 accidental opiate overdose - hx of methadone Hx of AAA - not seen on CT from 2019 - will screen with abdo US DVT ppx: heparin Dispo: pending PT eval, echo. VS, I&O, 24H, Fishbone Vital Signs/I&O Vital Signs Date Time Temp Pulse Resp B/P (MAP) Pulse Ox O2 Delivery O2 Flow Rate FiO2 09/29/20 06:00 97.6 63 18 131/68 (89) 96 Room Air l I&O- Last 24 Hours up to 6 AM 09/29/20 06:00 Intake Total 1350 ml Output Total 600 ml Balance 750 ml Laboratory Data 24H LABS Laboratory Tests 2 09/28/20 13:31: Immature Granulocyte % (Auto) 0.2, Neutrophils (%) (Auto) 47.3, Lymphocytes (%) (Auto) 35.4, Monocytes (%) (Auto) 9.1H, Eosinophils (%) (Auto) 7.1H, Basophils (%) (Auto) 0.9, Neutrophils # (Auto) 3.0, Lymphocytes # (Auto) 2.3, Monocytes # (Auto) 0.6, Eosinophils # (Auto) 0.5, Basophils # (Auto) 0.1, Nucleated Red Blood Cells % (auto) 0.0, Blood Gas Bicarbonate Standard 22.7, Venous Blood pH 7.322L, Venous Blood Partial Pressure CO2 50.1H, Venous Blood Partial Pressure O2 36.2, Venous Blood Total Carbon Dioxide 26.9, Venous Blood HCO3 25.3, Venous Blood Oxygen Saturation 66.0, Venous Blood Base Excess -1.2, Anion Gap 2L, Glomerular Filtration Rate 49.2, Estimated Mean Plasma Glucose 103, Hemoglobin A1c 5.2, Osmolality 298, Calcium Level 9.1, Magnesium Level 2.6H, Total Bilirubin 0.3, Direct Bilirubin < 0.1, Aspartate Amino Transf (AST/SGOT) 26, Alanine Aminotransferase (ALT/SGPT) 37, Alkaline Phosphatase 72, Ammonia 20, Total Creatine Kinase 263, Creatine Kinase MB 2.2, Creatine Kinase MB Relative Index 0.86, Troponin I < 0.02, Total Protein 7.0, Albumin 4.0, Albumin/Globulin Ratio 1.3, Thyroid Stimulating Hormone (TSH) 3.160 09/29/20 05:29: Immature Granulocyte % (Auto) 0.2, Neutrophils (%) (Auto) 38.2, Lymphocytes (%) (Auto) 44.4H, Monocytes (%) (Auto) 9.6H, Eosinophils (%) (Auto) 6.5H, Basophils (%) (Auto) 1.1H, Neutrophils # (Auto) 2.1, Lymphocytes # (Auto) 2.4, Monocytes # (Auto) 0.5, Eosinophils # (Auto) 0.4, Basophils # (Auto) 0.1, Nucleated Red Blood Cells % (auto) 0.0, Anion Gap 6L, Glomerular Filtration Rate 57.9, Calcium Level 8.3L, Magnesium Level 2.3, Total Bilirubin 0.3, Aspartate Amino Transf (AST/SGOT) 25, Alanine Aminotransferase (ALT/SGPT) 31, Alkaline Phosphatase 61, Total Protein 6.2L, Albumin 3.3, Albumin/Globulin Ratio 1.1, Triglycerides Level 100, Total Cholesterol 121, LDL Cholesterol 46, Non-HDL Cholesterol (LDL + VLDL) 66, Total HDL Cholesterol 55, Cholesterol/HDL Ratio 2.200 09/29/20 06:41: Urine Random Creatinine 113.0, Urine Random Sodium 72 CBC/BMP Laboratory Tests 09/28/20 13:31 09/29/20 05:29 Microbiology Microbiology 09/28/20 Respiratory Virus Panel (PCR) ([facility]) - Final, Complete POLINKEVSUSI HUBER MD September 29, 2020 10:32
[2020-09-29] MEDS ORDERED: hydrOXYzine 25 MG TAB PO PRN (10:35)
[2020-09-29 13:02] VITALS: BP 130/75
[2020-09-29] MEDS: lisinopriL 40 MG TAB PO SCH (13:02)
[2020-09-29 14:00] VITALS: BP 123/74
[2020-09-29] MEDS: CYCLOBENZAPRINE 10MG TABLET PO SCH ×2 (17:14→21:22)
[2020-09-29] MEDS ORDERED: LIDOCAINE 5% (LIDODERM) PATCH TD SCH (21:00)
[2020-09-29] MEDS ORDERED: QUEtiapine FUMARATE 50MG TAB PO SCH (21:00)
[2020-09-29] MEDS: ATORVASTATIN 20 MG TAB PO SCH (21:22)
[2020-09-30] MEDS: NS 1,000 ML IV SCH (03:08)
[2020-09-30] MEDS: HEPARIN SOD (PORCINE) 5000UNITS/ML 1ML VIAL/SYRINGE SC SCH (05:45)
[2020-09-30 06:00] VITALS: BP 129/66
[2020-09-30 06:27] LABS: BASO # 0.1 10^3/uL (0.0-0.2); BASO % 0.9 % (0.0-1.0); EOS # 0.5 10^3/uL (0.0-0.5); EOS % 7.1 % (0.0-3.0); HEMATOCRIT 35.6 % (42.0-52.0); HEMOGLOBIN 11.4 g/dl (13.5-17.5); LYMPH # 2.9 10^3/uL (1.5-5.0); LYMPH % 42.9 % (24.0-44.0); MEAN CORPUSCULAR HEMOGLOBIN 29.8 pg (27.0-33.0); MONO # 0.6 10^3/uL (0.0-0.8); NEUTROPHILS # 2.7 10^3/uL (1.5-8.5); NEUTROPHILS % 39.8 % (36.0-66.0); PLATELET COUNT, AUTOMATED 245 10^3/uL (150-450); RED BLOOD COUNT 3.83 10^6/uL (4.30-6.10); WHITE BLOOD COUNT 6.8 10^3/uL (4.0-10.0)
[2020-09-30 06:53] LABS: ALBUMIN 3.1 GM/DL (3.2-5.2); ALT/SGPT 30 U/L (12-78); BILIRUBIN,TOTAL 0.4 MG/DL (0.2-1.0); BLOOD UREA NITROGEN 20 MG/DL (7-18); CALCIUM LEVEL 8.3 MG/DL (8.8-10.2); CARBON DIOXIDE LEVEL 24 MEQ/L (21-32); CHLORIDE LEVEL 115 MEQ/L (98-107); CREATININE FOR GFR 1.14 MG/DL (0.70-1.30); GLOMERULAR FILTRATION RATE > 60.0 (>49); GLUCOSE, FASTING 83 MG/DL (70-100); MAGNESIUM LEVEL 1.9 MG/DL (1.8-2.4); POTASSIUM SERUM 4.3 MEQ/L (3.5-5.1); SODIUM LEVEL 145 MEQ/L (136-145); TOTAL PROTEIN 6.1 GM/DL (6.4-8.2)
--- NOTE | 2020-09-30 07:27 | CR ---
CONSULTATION DATE: 09/29/2020 REFERRING PHYSICIAN: Zackery Dennis MD REASON FOR CONSULTATION: Back, left leg pain and left leg numbness. HISTORY OF PRESENT ILLNESS: Saleem Mckeon is a 65-year-old man with history of hypertension, seizure, chronic kidney disease, aortic aneurysm, dyslipidemia who presented to emergency department with worsening of back pain, left leg pain, left leg numbness when he was mowing his lawn. He initially stated that he felt the left side was numbness but with directed questioning, he stated that it was the left leg which might have been numb. Over the last three weeks, his noted changes in his speech as if he had trouble findings words. He had a headache yesterday evening. He feels better today. He denies dysphagia, diplopia, urinary incontinence, falls, loss of consciousness. History of chronic back pain. He has occasional headaches. He denies any recurrent seizures. He denies any recent passing out spells. PAST MEDICAL HISTORY: Hypertension, seizure, chronic kidney disease stage 3, abdominal aortic aneurysm, dyslipidemia. SOCIAL HISTORY: He denies smoking, alcohol or illicit drugs. FAMILY HISTORY: Unremarkable and noncontributory. REVIEW OF SYSTEMS: All systems are reviewed and found to be noncontributory except as mentioned in history of present illness. HOME MEDICATIONS: None. ALLERGIES: None. PHYSICAL EXAMINATION: VITAL SIGNS: Temperature 97.6, pulse 63, respiratory rate 18, blood pressure 131/68, 96% saturation on room air. HEART: Regular rate and rhythm. LUNGS: Clear to auscultation. ABDOMEN: Soft, nontender, nondistended. EXTREMITIES: No pedal edema. MUSCULOSKELETAL: No abnormalities. SKIN: No rash. NEUROLOGICAL: No signs of meningeal irritation. No tremor or dysmetria. The patient is awake, alert, oriented to place, person and time. Normal speech, comprehension and repetition. Extraocular muscles are intact. No facial weakness. Tongue and uvula are midline. 5/5 strength in all four extremities. Gait is cautious but normal. Deep tendon reflexes are 2+ throughout. Normal sensation throughout. DIAGNOSTIC STUDIES: MRI of scan was reviewed and showed stable small focus of T2 shine through artifact in right occipital and parietal head region which is stable since June,. There is also small vessel ischemic disease of brain. There is no acute disease. MRA brain was unremarkable. Carotid ultrasound showed less than 50% bilateral carotid artery stenosis. Hemoglobin was 11.8 but normal WBCs and platelet count. LDL was 46 with HDL l55 and total cholesterol 121. Creatinine was 1.3 with GFR 57.9. MRI scan of cervical spine and lumbosacral spine showed multilevel cervical and lumbosacral disc disease. ASSESSMENT: 1. Chronic low back pain. 2. Multilevel cervical and lumbosacral degenerative disc disease and possible left-sided lumbosacral radiculopathy. The patient used to go to pain clinic in the past. 3. Small vessel ischemic disease of brain and less than 50% bilateral carotid artery stenosis. 4. Syncopal episode in 2019 without recurrence. PLAN: 1. Aspirin 81 mg p.o. daily. 2. Patient can be discharged home once physical therapy clears him. He should follow with pain clinic for his chronic neck and back pain.
[2020-09-30] MEDS: DOCUSATE SODIUM 100MG CAPSULE PO SCH (09:00)
[2020-09-30] MEDS ORDERED: **NOTE PATIENT COMMENT** MISC XX SCH (09:00)
[2020-09-30] MEDS: CYCLOBENZAPRINE 10MG TABLET PO SCH (09:27)
[2020-09-30] MEDS: lisinopriL 40 MG TAB PO SCH (09:27)
[2020-09-30 09:31] VITALS: BP 135/79
--- NOTE | 2020-09-30 09:50 | IPN ---
PROGRESS NOTE DATE: 09/30/2020 SUBJECTIVE: Saleem is seen [facility], feeling better, not having any focal numbness besides his chronic left leg numbness. He is seen by Neurology, thought he could probably be discharged if cleared by Physical Therapy. He is not sure if he feels ready to go today, he still feels weak, he is not sure he is going to be steady enough walking. OBJECTIVE: VITAL SIGNS: Afebrile. Vital signs stable. LUNGS: Clear. HEART: Regular rate and rhythm. ABDOMEN: Soft, nontender. EXTREMITIES: No peripheral edema. Normal gross sensation about the lower extremities. Good distal pulses bilaterally. LABORATORY DATA: CBC, CMP and BMP unremarkable. IMPRESSION: 1. Left leg weakness, suspected radiculopathy secondary to lumbosacral disease, also some concern about excess doses of sedating agents and his Flexeril dose has been reduced as well as his hydroxyzine dose. 2. Hypertension, well-controlled on current regimen. 3. ? history of seizures. He had an EEG that showed epileptiform changes but he is not on antiepileptic medications. 4. Acute kidney injury. Creatinine is down to baseline. 5. ? abdominal aortic aneurysm. Ultrasound was negative for AAA. He will probably be discharged tomorrow if he passes Physical Therapy.
[2020-09-30] MEDS ORDERED: QUET50TA3 PO (11:43)
[2020-09-30] MEDS ORDERED: LISI40TA4 PO (11:43)
[2020-09-30] MEDS ORDERED: ATOR1TAB21 PO ×2 (11:43→11:49)
[2020-09-30] MEDS ORDERED: CYCL-707 PO (11:43)
[2020-09-30] MEDS ORDERED: ASPI81TA26 PO (11:47)
[2020-10-01 09:58] LABS: TOTAL 25(OH) VITAMIN D 33.7 NG/ML (30.0-100.0)
--- NOTE | 2020-10-01 13:29 | DSES ---
DISCHARGE SUMMARY DATE OF ADMISSION: 09/28/2020 DATE OF DISCHARGE: 09/30/2020 PREOPERATIVE DIAGNOSIS: Altered mental status probably from excessive sedative medications. SECONDARY DIAGNOSIS: Left leg weakness, suspected radiculopathy. HISTORY: Saleem Tucker was sent to the emergency room because he was showing altered mental status. Speech was "slurred." They though his left side was weak, but they think it was just the left lower extremity due to chronic back problems. He was admitted to the hospitalist service and I assumed his care on the day of discharge. HOSPITAL COURSE: He was admitted to a medical bed. Telemetry showed no arrhythmia. Brain imaging studies were unremarkable. Carotid showed no occlusion. Dr. Barlow recommended starting full dose aspirin. The patient had some chronic acute kidney injury superimposed on mild chronic kidney disease. His renal ultrasound was unremarkable. He was hydrated and renal function returned to baseline. He reportedly had a history of abdominal aortic aneurysm, an ultrasound was done, and that showed no aneurysm. On the day of discharge, he is going to be discharged and leave against medical claims examiner. After rounds, he came down to the nurse's station and demanded to be discharged assuming he passed his home safety evaluation. Upon discharge, I noted that the patient did not have his meds reconciled on admission and when I got to his office chart, it was already time for him to be discharged. His office chart indicates that he is on gabapentin 300 mg t.i.d., rosuvastatin 20 mg daily, lisinopril 40 mg daily, aspirin 81 mg daily, mirtazapine 30 mg at bedtime, sertraline 100 mg daily, Seroquel 50 mg q. h.s., BuSpar 15 mg b.i.d., cyclobenzaprine 10 mg t.i.d. Of these only the lisinopril, rosuvastatin, Seroquel, and cyclobenzaprine were continued in the hospital. DISCHARGE MEDICATIONS: The patient was discharged on aspirin 81 mg daily, which he is already taking, atorvastatin 40 mg daily, cyclobenzaprine 10 mg b.i.d, lisinopril 40 mg daily, Seroquel 50 mg q. h.s. Apparently he was switched from his rosuvastatin to atorvastatin in the hospital. DISCHARGE FOLLOW-UP: He will follow-up with Dr. Altamirano in a week. DISCHARGE DIET: No added salt diet. DISCHARGE ACTIVITY: As tolerated. His medications can be straightened out at his office visit. Apparently did not have a med list on presentation.
--- NOTE | 2020-10-01 14:08 | ECHO ---
DATE OF PROCEDURE: 09/29/2020 Age: 65 Gender: Male Height: 165 cm Weight: 89 kg REFERRING PHYSICIAN: Dr. Dennis. INDICATION: Cerebrovascular accident. MEASUREMENTS: IVS 1.0 cm LV 4.6 cm LVPW 1.1 cm LA 3.6 cm Aorta 3.1 cm RV 3.1 cm Mitral E wave velocity 93 A wave 123 E prime septal 9.0 E prime lateral 11.6 FINDINGS: This study is of good technical quality. Patient is in sinus rhythm with first degree AV block. Left ventricle is normal size and has normal systolic function, estimated LVEF 60 to 65%. Right ventricle also appears to have normal size and systolic function. Both atria appear normal. All four cardiac valves were reasonably well seen and appear normal. No pericardial effusion is noted. Inferior vena cava was not seen. Aortic root is normal. Aortic arch and abdominal aorta were not visualized. Doppler interrogation of aortic valve reveals no stenosis or insufficiency. Same applies for mitral valve. Trace tricuspid insufficiency is seen. Calculated pulmonary artery pressure is in upper limits of normal values assuming normal central venous pressure. Pulmonic valve is functionally competent. Mitral inflow pattern and tissue Doppler imaging of mitral annulus revealed grade 1 diastolic dysfunction. Global longitudinal strain was measured at -19.9%. Injection of agitated saline through peripheral vein does not reveal any evidence for [id number] shunt. CONCLUSIONS: 1. Study is of good technical quality. The patient is in sinus rhythm. 2. Normal LV size and systolic function. Grade 1 diastolic dysfunction. 3. No significant valvular disease. 4. Unable to estimated central venous pressure but likely borderline pulmonary hypertension. 5. Negative bubble study. MTDD
== END 2020-09-30 12:00 | disposition home or self-care (01) | DRG 897 ==
LOC: M ED 10:25 → M ED INP 17:12 → ENRESERV 18:51 → M MSPAV 21:15
PROVIDERS: ADMIT Family Medicine; ATTEND Family Medicine
DX: F13.188 Sedative, hypnotic or anxiolytic abuse with other sedative, hypnotic or anxiolytic-induced disorder (principal); N17.9 Acute kidney failure, unspecified; I12.9 Hypertensive chronic kidney disease with stage 1 through stage 4 chronic kidney disease, or unspecified chronic kidney disease; N18.30 Chronic kidney disease, stage 3 unspecified; G40.909 Epilepsy, unspecified, not intractable, without status epilepticus; E78.5 Hyperlipidemia, unspecified; M54.5 Low back pain; R29.6 Repeated falls; M54.2 Cervicalgia; R53.1 Weakness; R47.1 Dysarthria and anarthria

== ENCOUNTER → 2020-12-21 | Outpatient (CLI) | payer OTHER, MEDICARE ==
[~2020-12-21] MED LIST changes: +ASPI81TA26 PO; +ATOR1TAB21 PO; +QUET50TA3 PO; +TRAZ-252 PO
[2020-12-21 13:31] LABS: BASO # 0.1 10^3/uL (0.0-0.2); BASO % 1.1 % (0.0-1.0); EOS # 0.4 10^3/uL (0.0-0.5); HEMATOCRIT 42.5 % (42.0-52.0); HEMOGLOBIN 13.5 g/dl (13.5-17.5); LYMPH # 2.4 10^3/uL (1.5-5.0); LYMPH % 31.8 % (24.0-44.0); MEAN CORPUSCULAR HEMOGLOBIN 29.8 pg (27.0-33.0); MEAN CORPUSCULAR HGB CONC 31.8 g/dl (32.0-36.5); MEAN CORPUSCULAR VOLUME 93.8 fl (80.0-96.0); MONO # 0.6 10^3/uL (0.0-0.8); NEUTROPHILS % 53.8 % (36.0-66.0); PLATELET COUNT, AUTOMATED 265 10^3/uL (150-450); RED BLOOD COUNT 4.53 10^6/uL (4.30-6.10); WHITE BLOOD COUNT 7.4 10^3/uL (4.0-10.0)
[2020-12-21 14:02] LABS: ALBUMIN 4.1 GM/DL (3.2-5.2); BILIRUBIN,TOTAL 0.5 MG/DL (0.2-1.0); C REACTIVE PROTEIN QUANTITATIV 0.3 MG/DL (0.00-0.30); CALCIUM LEVEL 8.8 MG/DL (8.8-10.2); CHOLESTEROL RISK RATIO 2.346 (<5); CREATININE FOR GFR 1.69 MG/DL (0.70-1.30); GLOMERULAR FILTRATION RATE 43.6 (>49); PERCENT SATURATION 26.9 % (19.7-50.0); TOTAL PROTEIN 7.3 GM/DL (6.4-8.2)
== END ==
LOC: M PLALAB 09:10
PROVIDERS: ATTEND Family Medicine
DX: E78.2 Mixed hyperlipidemia (principal); D50.9 Iron deficiency anemia, unspecified; I10 Essential (primary) hypertension

== ENCOUNTER → 2020-12-25 | Outpatient (CLI) | payer MEDICARE, OTHER ==
[~2020-12-25] MED LIST changes: +ISOVUE-370 76% 100ML VIAL As Ordered ONE; -QUET50TA3 PO; +QUET50TA4 PO
--- NOTE | 2020-12-25 12:59 | REP ---
INDICATION: LUNG NODULE. COMPARISON: Chest CT without IV contrast dated 10/31/2019. TECHNIQUE: Chest CT with IV contrast. FINDINGS: The pleural based 4 mm right middle lobe lung nodule identified previously is unchanged and is seen on image 53 of the study today. No further follow-up of this nodule is needed. However, there is a new 4 mm right middle lobe lung nodule on page 53, anteriorly in the right middle lobe, not present previously. Depending on risk factors follow-up of this lung nodule by CT in 1 year is recommended. There are no other lung nodules or masses. There are no infiltrates or pleural effusions. There is curvilinear scarring in the right lower lobe, unchanged. There is a new zone of curvilinear scarring/atelectasis in the right lower lobe. There is no mediastinal or hilar adenopathy. There is no axillary adenopathy. Thoracic aorta is unremarkable. Cardiac size is normal. There is no pericardial effusion. Upper abdomen: There is no adrenal mass. The visualized areas of the liver, gallbladder, pancreas and spleen are unremarkable. There is a circumferential anastomotic surgical suture line in the colonic hepatic flexure, unchanged. IMPRESSION: Previously identified 4 mm right middle lobe pleural base nodule is unchanged and requires no further evaluation. There is a new 4 mm nodule anteriorly in the right middle lobe as an interval change. Depending on risk factors follow-up chest CT in 1 year might be considered. Curvilinear scarring in the right lower lobe. New atelectasis versus curvilinear scarring in the left lower lobe. Surgical suture line in the colonic hepatic flexure. <Electronically signed by Dwayne Coronado > 12/25/20 [id number]
== END ==
LOC: M RAD 12:12
PROVIDERS: ATTEND Family Medicine
DX: R91.1 Solitary pulmonary nodule (principal); R91.8 Other nonspecific abnormal finding of lung field; Z98.890 Other specified postprocedural states
CPT/HCPCS: 71260; Q9967

== ENCOUNTER → 2021-01-17 | Outpatient (CLI) | payer MEDICARE ==
[~2021-01-17] MED LIST changes: -ISOVUE-370 76% 100ML VIAL As Ordered ONE
--- NOTE | 2021-01-17 10:11 | REP ---
INDICATION: CKD STAGE 3B COMPARISON: None TECHNIQUE: Real time kahn scale ultrasound examination using curved array transducer followed by color Doppler evaluation of the renal vasculature. FINDINGS: The bilateral kidneys appear hyperechoic and mildly atrophic with normal reniform shape and no evidence for hydronephrosis. Right kidney measures 9.2 x 4.8 x 4.8 cm. Left kidney measures 9.0 x 5.4 x 5.3 cm. Bladder is grossly unremarkable. Color Doppler evaluation. Peak aortic velocity: 83.7 centimeters/second RIGHT KIDNEY Renal arterial velocity: 111.9 centimeters/second Renal-aortic ratio: 1.3 Intrarenal resistive indices: 0.61-0.68 Intrarenal acceleration times: 0.03-0.04 LEFT KIDNEY Renal arterial velocity: 73.2 centimeters/second Renal-aortic ratio: 0.9 Intrarenal resistive indices: 0.62-0.65 Intrarenal acceleration times: 0.03-0.04 IMPRESSION: 1. Kidneys suggest age-related changes. 2. Doppler interegation without sonographic evidence for renal arterial stenosis. <Electronically signed by Shaquille Guillaume > 01/17/21 [id number]
== END ==
LOC: M RAD 08:51
PROVIDERS: ATTEND Family Medicine
DX: N18.32 Chronic kidney disease, stage 3b (principal)

== ENCOUNTER → 2021-04-19 | Outpatient (CLI) | payer MEDICARE ==
[2021-04-19 15:28] LABS: BASO # 0.1 10^3/uL (0.0-0.2); EOS # 0.7 10^3/uL (0.0-0.5); EOS % 8.5 % (0.0-3.0); HEMATOCRIT 42.4 % (42.0-52.0); HEMOGLOBIN 13.5 g/dl (13.5-17.5); LYMPH % 37.8 % (24.0-44.0); MEAN CORPUSCULAR HEMOGLOBIN 29.4 pg (27.0-33.0); MEAN CORPUSCULAR HGB CONC 31.8 g/dl (32.0-36.5); MEAN CORPUSCULAR VOLUME 92.4 fl (80.0-96.0); MONO # 0.7 10^3/uL (0.0-0.8); MONO % 8.5 % (2.0-8.0); NEUTROPHILS # 3.5 10^3/uL (1.5-8.5); NEUTROPHILS % 43.8 % (36.0-66.0); PLATELET COUNT, AUTOMATED 300 10^3/uL (150-450); RED BLOOD COUNT 4.59 10^6/uL (4.30-6.10); WHITE BLOOD COUNT 7.9 10^3/uL (4.0-10.0)
[2021-04-19 15:59] LABS: CREATININE,RANDOM URINE 50.2 MG/DL; TOTAL PROTEIN,RANDOM URINE < 5.0 MG/DL (0.0-12.0)
[2021-04-19 16:06] LABS: ALBUMIN 3.8 GM/DL (3.2-5.2); ALT/SGPT 75 U/L (12-78); BILIRUBIN,TOTAL 0.4 MG/DL (0.2-1.0); BLOOD UREA NITROGEN 23 MG/DL (7-18); CALCIUM LEVEL 9.1 MG/DL (8.8-10.2); CARBON DIOXIDE LEVEL 32 MEQ/L (21-32); CHLORIDE LEVEL 105 MEQ/L (98-107); CREATININE FOR GFR 1.47 MG/DL (0.70-1.30); GLOMERULAR FILTRATION RATE 51.2 (>49); GLUCOSE, FASTING 89 MG/DL (70-100); MAGNESIUM LEVEL 2.7 MG/DL (1.8-2.4); NT-PRO BNP 32 PG/ML (<125); POTASSIUM SERUM 5.3 MEQ/L (3.5-5.1); SODIUM LEVEL 139 MEQ/L (136-145); TOTAL PROTEIN 7.5 GM/DL (6.4-8.2)
== END ==
LOC: M PLALAB 13:18
PROVIDERS: ATTEND Family Medicine
DX: D50.9 Iron deficiency anemia, unspecified (principal); I10 Essential (primary) hypertension
CPT/HCPCS: 36415; 80053; 82570; 83735; 83880; 84156; 85025; 86335; G0463

== ENCOUNTER → 2021-12-19 | Outpatient (CLI) | payer MEDICARE ==
[~2021-12-19] MED LIST changes: +RA S160C PO; -SM S160C PO
[2021-12-19 22:58] LABS: ALBUMIN 4.1 GM/DL (3.2-5.2); BILIRUBIN,TOTAL 0.4 MG/DL (0.2-1.0); CALCIUM LEVEL 9.7 MG/DL (8.8-10.2); CREATININE FOR GFR 1.51 MG/DL (0.70-1.30); GLOMERULAR FILTRATION RATE 49.5 (>49); MAGNESIUM LEVEL 2.4 MG/DL (1.8-2.4); POTASSIUM SERUM 3.9 MEQ/L (3.5-5.1); TOTAL PROTEIN 7.5 GM/DL (6.4-8.2)
[2021-12-19 23:42] LABS: TOTAL 25(OH) VITAMIN D 51.9 NG/ML (30.0-100.0)
[2021-12-19 23:43] LABS: PTH INTACT 22.3 PG/ML (18.5-88.0)
[2021-12-20 00:36] LABS: HEMOGLOBIN A1c 5.4 %
[2021-12-22 19:06] LABS: INSULIN LEVEL 35.7 uIU/mL (2.6-24.9); SOLUBLE TRANSFERRIN RECEPTOR 18.3 nmol/L (12.2-27.3)
== END ==
LOC: M PLALAB 08-21 08:48
PROVIDERS: ATTEND Family Medicine
DX: I12.9 Hypertensive chronic kidney disease with stage 1 through stage 4 chronic kidney disease, or unspecified chronic kidney disease (principal); N18.31 Chronic kidney disease, stage 3a; Z12.5 Encounter for screening for malignant neoplasm of prostate
CPT/HCPCS: 36415; 80053; 82306; 82728; 83036; 83520; 83525; 83735; 83880; 83970; G0103

== ENCOUNTER → 2022-01-10 | Outpatient (CLI) | payer MEDICARE ==
[~2022-01-10] MED LIST changes: +ISOVUE-370 76% 100ML VIAL As Ordered ONE
== END ==
LOC: M RAD 07:45
PROVIDERS: ATTEND Family Medicine
DX: R91.8 Other nonspecific abnormal finding of lung field (principal); M51.44 Schmorl's nodes, thoracic region; I25.10 Atherosclerotic heart disease of native coronary artery without angina pectoris; I70.0 Atherosclerosis of aorta
CPT/HCPCS: 71260; Q9967

== ENCOUNTER → 2022-06-03 | Outpatient (CLI) | payer MEDICARE ==
[~2022-06-03] MED LIST changes: -ISOVUE-370 76% 100ML VIAL As Ordered ONE
[2022-06-03 11:28] LABS: HEMOGLOBIN A1c 5.4 % (4.0-6.0)
[2022-06-03 11:30] LABS: MAGNESIUM LEVEL 2.1 MG/DL (1.8-2.4)
[2022-06-03 11:46] LABS: BILIRUBIN,TOTAL 0.6 MG/DL (0.3-1.2); CALCIUM LEVEL 9.6 MG/DL (8.3-10.6); CREATININE FOR GFR 1.34 MG/DL (0.70-1.30); FERRITIN 25.6 NG/ML (10.5-307.3); GLOMERULAR FILTRATION RATE 56.8 (>49); POTASSIUM SERUM 5.4 MMOL/L (3.5-5.1); PTH INTACT 42.5 PG/ML (18.5-88.0); TOTAL 25(OH) VITAMIN D 47.5 NG/ML (20.0-100.0); TOTAL PROTEIN 7.1 G/DL (5.7-8.2)
[2022-06-05 17:09] LABS: INSULIN LEVEL 19.1 uIU/mL (2.6-24.9); SOLUBLE TRANSFERRIN RECEPTOR 14.3 nmol/L (12.2-27.3)
== END ==
LOC: M PLALAB 08:47
PROVIDERS: ATTEND Family Medicine
DX: I12.9 Hypertensive chronic kidney disease with stage 1 through stage 4 chronic kidney disease, or unspecified chronic kidney disease (principal); Z12.5 Encounter for screening for malignant neoplasm of prostate; N18.31 Chronic kidney disease, stage 3a; Z79.899 Other long term (current) drug therapy
CPT/HCPCS: 36415; 80053; 82306; 82728; 83036; 83520; 83525; 83735; 83880; 83970; G0103

== ENCOUNTER → 2022-07-17 | Outpatient (CLI) | payer MEDICARE ==
[~2022-07-17] MED LIST changes: +ISOVUE-370 76% 100ML VIAL As Ordered ONE
== END ==
LOC: M RAD 09:30
PROVIDERS: ATTEND Family Medicine
DX: R91.1 Solitary pulmonary nodule (principal); J43.9 Emphysema, unspecified
CPT/HCPCS: 71260; Q9967

== ENCOUNTER 2023-02-04 08:41 | Day surgery (SDC) | payer OTHER, MEDICARE ==
[~2023-02-04] VITALS: Ht 175.3 cm; Wt 86.2 kg
[~2023-02-04 08:41] MED LIST changes: +B-12100010 PO; +DICL100G10 TOP; -DICL1GEL3 TOP; +EQL50TAB2 PO; -ISOVUE-370 76% 100ML VIAL As Ordered ONE; +NS 1,000 ML IV ONE; -ROSU20TA5 PO; +ROSU20TA61 PO
[2023-02-04] MEDS ORDERED: LIDOCAINE 2% 100MG/5ML SDV (FOR ANES.) As Ordered ONE (08:51)
[2023-02-04] MEDS ORDERED: propofoL 500 MG/50 ML VIAL As Ordered ONE (08:51)
[2023-02-04] MEDS ORDERED: fentaNYL 100 MCG/2 ML INJECTION As Ordered ONE (08:51)
[2023-02-04] MEDS ORDERED: ePHEDrine SULFATE 25 MG/5 ML(5MG/ML) SYRINGE As Ordered ONE (10:03)
[2023-02-04 10:16] VITALS: TEMP 98.6
[2023-02-04 10:34] VITALS: BP 120/64; O2SAT 98
== END 2023-02-04 10:44 | disposition home or self-care (01) ==
LOC: M OPP 08:41
PROVIDERS: ATTEND Internal Medicine Gastroenterology
DX: K64.0 First degree hemorrhoids (principal); K31.A19 Gastric intestinal metaplasia without dysplasia, unspecified site; I10 Essential (primary) hypertension; E78.5 Hyperlipidemia, unspecified; I71.40 Abdominal aortic aneurysm, without rupture, unspecified; M19.90 Unspecified osteoarthritis, unspecified site; F17.220 Nicotine dependence, chewing tobacco, uncomplicated; Z79.82 Long term (current) use of aspirin; Z79.899 Other long term (current) drug therapy
CPT/HCPCS: 43239; 45380; 88305; J3010

== ENCOUNTER → 2023-06-25 | Outpatient (REF) | payer MEDICARE ==
[~2023-06-25] MED LIST changes: -NS 1,000 ML IV ONE
== END ==
LOC: M SFHCPLAZ 10:50
PROVIDERS: ATTEND Family Medicine
DX: I10 Essential (primary) hypertension (principal); E78.2 Mixed hyperlipidemia; Z12.5 Encounter for screening for malignant neoplasm of prostate; J44.9 Chronic obstructive pulmonary disease, unspecified

== ENCOUNTER → 2023-06-25 | Outpatient (CLI) | payer MEDICARE ==
[2023-06-25 14:20] LABS: THYROID STIMULATING HORMONE 1.642 uIU/ML (0.55-4.78)
[2023-06-25 14:22] LABS: BASO # 0.1 10^3/uL (0.0-0.2); EOS % 12.3 % (0.0-3.0); HEMATOCRIT 42.5 % (42.0-52.0); HEMOGLOBIN 13.7 g/dl (13.5-17.5); LYMPH # 2.4 10^3/uL (1.5-5.0); LYMPH % 29.1 % (24.0-44.0); MEAN CORPUSCULAR HEMOGLOBIN 30.1 pg (27.0-33.0); MEAN CORPUSCULAR HGB CONC 32.2 g/dl (32.0-36.5); MEAN CORPUSCULAR VOLUME 93.4 fl (80.0-96.0); MONO # 0.8 10^3/uL (0.0-0.8); MONO % 9.1 % (2.0-8.0); NEUTROPHILS % 48.3 % (36.0-66.0); PLATELET COUNT, AUTOMATED 289 10^3/uL (150-450); RED BLOOD COUNT 4.55 10^6/uL (4.30-6.10); WHITE BLOOD COUNT 8.2 10^3/uL (4.0-10.0)
[2023-06-25 14:26] LABS: ALBUMIN 3.9 G/DL (3.2-5.2); ALKALINE PHOSPHATASE 71 U/L (46-116); ALT/SGPT 24 U/L (7.0-40); AST/SGOT 23 U/L (<34); BLOOD UREA NITROGEN 18 MG/DL (9-23); CALCIUM LEVEL 9.1 MG/DL (8.3-10.6); CARBON DIOXIDE LEVEL 28 MMOL/L (20-31); CHLORIDE LEVEL 108 MMOL/L (98-107); CREATININE FOR GFR 1.11 MG/DL (0.70-1.30); GLOMERULAR FILTRATION RATE > 60.0 (>49); GLUCOSE, FASTING 88 MG/DL (74-106); POTASSIUM SERUM 4.4 MMOL/L (3.5-5.1); SODIUM LEVEL 142 MMOL/L (136-145); TOTAL PROTEIN 6.9 G/DL (5.7-8.2)
== END ==
LOC: M PLALAB 10:57
PROVIDERS: ATTEND Family Medicine
DX: Z12.5 Encounter for screening for malignant neoplasm of prostate (principal); I10 Essential (primary) hypertension; J44.9 Chronic obstructive pulmonary disease, unspecified; Z86.39 Personal history of other endocrine, nutritional and metabolic disease
CPT/HCPCS: 36415; 80053; 82728; 83880; 84439; 84443; 85025; G0103